=== PATIENT | female | born 1940 | race Caucasian/White ===

== ENCOUNTER 2023-02-16 12:41 | Emergency (ER) | payer MEDICARE, SELFPAY ==
--- NOTE | ~2023-02-16 | CT_ITS ---
EXAMINATION: CT ANGIOGRAM NECK WITH CONTRAST CT ANGIOGRAM BRAIN WITH CONTRAST CLINICAL INFORMATION: Right-sided weakness. COMPARISON: Head CT performed just prior. TECHNIQUE: Test bolus sequences followed by intravenous administration 100 mL of Omnipaque 350. Helical imaging was performed in the axial plane from the thoracic inlet to the skull vertex. Delayed postcontrast imaging of the head was also performed. The data was processed at the hyperbaric technologist workstation for generation of MIP sequences. Angled MIPs and volume rendered reformatted images were also generated at an offline 3D workstation. Stenoses are assessed in accordance with NASCET criteria unless otherwise indicated. This CT examination was performed using dose optimization techniques as appropriate, variously including the following: *Automated exposure control *Adjustment of mA and/or kV according to patient size (this includes techniques or standardized protocols for targeted exams where dose is matched to indication/reason for exam; i.e. extremities or head) *Use of iterative reconstruction technique DLP: 1359 mGy-cm FINDINGS: Head CT: Multiple peripherally enhancing intracranial metastases are seen, largest in the left frontal lobe measuring 2.0 cm with surrounding vasogenic edema. Additional smaller lesions are noted in the right frontal lobe, right insula, and right temporal lobe. There is no midline shift or herniation. There is no hemorrhage. No territorial infarction is seen. There is brain parenchymal volume loss. The dural venous sinuses are normally opacified. Neck CTA: Aortic arch and great vessel origins are patent. Common carotid arteries are patent. The left internal carotid artery appears occluded at its origin without reconstitution in the neck. Right internal carotid artery is patent. Atheromatous changes seen at both carotid bifurcations. Both vertebral arteries are patent. Head CTA: The intracranial left ICA reconstitutes at the siphon. The ACAs and MCAs are patent. The posterior circulation arteries are patent. No aneurysm is seen. Non-vascular findings: There is a large mass involving the right upper lung with significant infiltration of the mediastinum resulting in pulmonary arterial encasement. Abnormal mediastinal lymph nodes are seen. There is no abnormal presumably metastatic lymph node in the left neck at level 2A measuring 8 mm there is a multinodular thyroid gland exophytic nodule extending into the prevascular space. No definite destructive changes are seen in the bones. There is advanced dental disease. CT/CT angio head neck stroke IMPRESSION: CT HEAD: Multiple intracranial metastases largest in the left frontal lobe with surrounding vasogenic edema. No midline shift or herniation. No hemorrhage or territorial infarction. CTA NECK: Left internal carotid artery is occluded at its origin without reconstitution in the neck. Major neck arteries are otherwise patent. CTA HEAD: Left ICA reconstitutes intracranially. No large vessel occlusion or significant stenosis. Additional findings: Large mass in the right upper lung with infiltration of the mediastinum and pulmonary arterial encasement. Suspected left neck metastatic adenopathy in addition to mediastinal adenopathy. This critical result was discussed with Dr. Bonner on 02/16/2023 1:22 PM, and it was ascertained that the content and urgency of the report was understood at the time of direct communication.
--- NOTE | ~2023-02-16 | CT_ITS ---
EXAMINATION: CT HEAD WITHOUT CONTRAST (STROKE PROTOCOL) CLINICAL INFORMATION: Stroke protocol. Right-sided weakness COMPARISON: Previous CTA of the brain done the same day TECHNIQUE: Contiguous axial imaging was performed from the skull base to vertex without intravenous administration of contrast. This CT examination was performed using dose optimization techniques as appropriate, variously including the following: *Automated exposure control *Adjustment of mA and/or kV according to patient size (this includes techniques or standardized protocols for targeted exams where dose is matched to indication/reason for exam; i.e. extremities or head) *Use of iterative reconstruction technique DLP: 570 mGy-cm FINDINGS: There is no evidence of an extra-axial collection. There is no evidence of intra or extra-axial hemorrhage. The ventricles and extra-axial CSF spaces are appropriate. There is a large area of low attenuation seen in the left posterior frontal and left parietal lobes with vasogenic edema pattern. There is question of a central cystic lesion in the left posterior parietal lobe. This measures 1.8 x 2.1 cm and has a thick wall axial image 42 series 2. There is a second area of low attenuation with vasogenic edema measuring 1 x 1.3 cm in the right posterior frontal/anterior parietal lobe axial image 30 series 2. There is a third area small area of low attenuation in the left thalamus measuring 6 x 9 mm. This area is questionable for an lacunar infarct. No appreciable mass effect is seen. Review at bone windows is normal. CT/CT head for stroke IMPRESSION:: Large low-attenuation vasogenic edema in the left posterior frontal and entire parietal lobe and question central left parietal cystic lesion measuring 1.8 x 2 cm. Smaller area of vasogenic edema in the right frontal parietal region. Appearance is concerning for metastatic disease. 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 Findings could be further evaluated with brain MRI if clinically indicated. This critical result was discussed with Dr. Bonner at 1307 hours on 02/16/2023. It was ascertained that the content and urgency of the report was understood at the time of direct communication.
--- NOTE | 2023-02-16 12:42 | ED.NEUROSD ---
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 Per EMS, the patient was taking her morning medications when she suddenly felt her right arm and right leg become weak, which is not normal for her. She immediately called her son into the room, whom she lives with, and he then called EMS. Per EMS, patient's symptoms began improving en route. In ED, patient reports continued RUE weakness, RLE weakness has improved. No slurred speech. Related Data Previous Rx's Medication Instructions Recorded dexamethasone 6 mg tablet 12 mg PO BID 10 days #20 tabs 02/16/23 Allergies Allergy/AdvReac Type Severity Reaction Status Date / Time meperidine [From Demerol] Allergy Unknown Unknown Verified 02/16/23 13:10 Review of Systems Review of Systems: Yes all other systems are reviewed and are negative Neurologic: Denies Sensory deficit (Neuro) [facility] Social History Social History Advance Directives: Yes Advance Directives Information Provided: Yes Advance Directives on File: No Physical Exam Vital Signs: Vital Signs: Last Vital Signs Temp 98.7 F 02/16/23 13:11 Pulse 75 02/16/23 14:29 Resp 12 02/16/23 14:29 BP 158/66 H 02/16/23 14:29 Pulse Ox 94 02/16/23 14:29 O2 Del Method Room Air 02/16/23 14:29 BMI result Body Mass Index 22.3 Const: Other: frail, elderly General: alert and awake Nutritional Appearance: thin Orientation/consciousness: oriented to person and patient oriented x3 Limitations: no limitations HEENT: Head: Yes normal to inspection Ears: external ears normal General nose exam: Normal external nose present Mouth: Normal oral and palatal mucosa present and oropharynx normal Throat: Yes posterior oropharynx normal Eyes: General: appearance normal, both eyes and all related structures Neck: Other: supple Neck: Yes normal visual inspection Chest: Chest palpation & inspection: normal inspection of the chest Resp: Auscultation: clear to auscultation bilaterally Cardio: Jugular venous distension: no JVD Rate: regular rate Rhythm: regular rhythm Heart sounds: S1 normal heart sound present and S2 normal heart sound present GI: Inspection: Yes normal to inspection Palpation (GI): Soft to palpation, nontender and No hepatosplenomegaly present Auscultation: normal bowel sounds : General: Yes no CVA tenderness Back/Spine/Pelvis: Back: no CVA tenderness Skin: General skin exam: no rashes or lesions noted Neuro: Other: + right arm weakness General: oriented to person and patient oriented x3 Cranial nerves: Yes CN's II-XII intact bilaterally Sensory Exam: No Sensory deficit (Neuro) Extrem: General: Yes normal to inspection Psych: Appearance: grossly normal Course Reevaluation(s) Reevaluation #1: 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 pt does not want acute intervention or transfer for radiation to the brain due to mets. she would like to go home. she will take steroids. Time: 15:22 Medications Administered Discontinued Medications Generic Name Dose Route Start Last Admin Trade Name Freq PRN Reason Stop Dose Admin Iohexol 100 ml 02/16/23 13:20 02/16/23 13:21 Iohexol 350 Mg/Ml 100 Ml Infus..Btl IV 02/16/23 13:21 70 ml ONCE ONE Administration Medical Decision Making Differential Diagnosis Differential Diagnoses: The differential diagnosis associated with the presentation includes (CVA, brain mass, metastatic cancer were all considered) Admission/Observation Consideration of admission/observation: Escalation of care including admission/observation considered (82 yo with new onset r sided weakness was considered for admission upon arrival) Consult Healthcare Provider Management of the patient 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 (Elevated WBC count noted) 02/16/23 13:32 02/16/23 13:32 Labs: Lab Results 02/16/23 02/16/23 02/16/23 Range/Units 12:45 12:46 13:32 WBC 14.8 H (4.8-10.8) X10*3/uL RBC 4.18 L (4.20-5.50) X10*6/uL Hgb 12.7 (12.0-16.0) g/dl Hct 39.4 (37.0-47.0) % MCV 94.3 (80.0-98.0) fL MCH 30.4 (27.0-33.0) pg MCHC 32.2 (31.0-35.0) g/dl RDW 14.5 (11.0-16.0) % Plt Count 406 H (160-400) X10*3/uL MPV 11.0 (9.4-12.3) fL Immature Gran % (Auto) 0.4 (0.0-0.4) % Neut % (Auto) 78.9 H (45-73) % Lymph % (Auto) 8.7 L (20-40) % Coles % (Auto) 9.3 (2-11) % Eos % (Auto) 2.0 (0-4) % Baso % (Auto) 0.7 (0-2) % Lymph # (Auto) 1.3 (1.2-4.9) X10*3/uL Coles # (Auto) 1.4 H (0.1-1.2) X10*3/uL Eos # (Auto) 0.3 (0.0-0.4) X10*3/uL Baso # (Auto) 0.1 (0.0-0.2) X10*3/uL Abs Immat Gran (auto) 0.06 H (0.00-0.03) X10*3/uL Absolute Neuts (auto) 11.7 H (2.0-8.3) x10*3/uL Absolute Nucleated RBC 0.000 (0.0-0.012) X10*3/uL Nucleated RBC % (auto) 0.0 (0.0-0.2) /100WBC PT (10.0-13.1) SEC Whole Blood PT 12.3 (11.1-13.5) sec INR (0.9-1.1) Whole Blood INR 1.0 (0.9-1.1) APTT (26.0-36.4) SEC Sodium (135-145) mmol/L Potassium (3.3-5.1) mmol/L Chloride (96-108) mmol/L Carbon Dioxide (22-29) mmol/L Anion Gap (12-20) BUN (9-16) mg/dL Creatinine (0.5-1.4) mg/dL Estim Creat Clear Calc Estimated GFR POC Glucose 106 (60-115) mg/dL Random Glucose (60-115) mg/dL Calcium (8.4-10.2) mg/dL Troponin I High Sens (<3.5-17.0) ng/L 02/16/23 02/16/23 02/16/23 Range/Units 13:32 13:32 13:32 WBC (4.8-10.8) X10*3/uL RBC (4.20-5.50) X10*6/uL Hgb (12.0-16.0) g/dl Hct (37.0-47.0) % MCV (80.0-98.0) fL MCH (27.0-33.0) pg MCHC (31.0-35.0) g/dl RDW (11.0-16.0) % Plt Count (160-400) X10*3/uL MPV (9.4-12.3) fL Immature Gran % (Auto) (0.0-0.4) % Neut % (Auto) (45-73) % Lymph % (Auto) (20-40) % Coles % (Auto) (2-11) % Eos % (Auto) (0-4) % Baso % (Auto) (0-2) % Lymph # (Auto) (1.2-4.9) X10*3/uL Coles # (Auto) (0.1-1.2) X10*3/uL Eos # (Auto) (0.0-0.4) X10*3/uL Baso # (Auto) (0.0-0.2) X10*3/uL Abs Immat Gran (auto) (0.00-0.03) X10*3/uL Absolute Neuts (auto) (2.0-8.3) x10*3/uL Absolute Nucleated RBC (0.0-0.012) X10*3/uL Nucleated RBC % (auto) (0.0-0.2) /100WBC PT 11.8 (10.0-13.1) SEC Whole Blood PT (11.1-13.5) sec INR 1.0 (0.9-1.1) Whole Blood INR (0.9-1.1) APTT 32.5 (26.0-36.4) SEC Sodium 138 (135-145) mmol/L Potassium 4.1 (3.3-5.1) mmol/L Chloride 106 (96-108) mmol/L Carbon Dioxide 23 (22-29) mmol/L Anion Gap 13 (12-20) BUN 11 (9-16) mg/dL Creatinine 0.58 (0.5-1.4) mg/dL Estim Creat Clear Calc 60.8 Estimated GFR > 60 POC Glucose (60-115) mg/dL Random Glucose 105 (60-115) mg/dL Calcium 9.6 (8.4-10.2) mg/dL Troponin I High Sens < 2.7 (<3.5-17.0) ng/L Independent Interpretation I performed an independent interpretation of an: EKG (sinus 80 bpm, PVC, no st or t wave changes) and CT Scan (Head: edema to left parietal vs stroke) Radiology Impression Discussion of test interpretation with radiology: I discussed test interpretation with the radiologist (both head ct and iv cta were consulted w radiologist) Independent Historian Clinical information obtained from an independent historian. History obtained from or confirmed by: Other (son) Chronic Conditions Patient?s care impacted by: Cancer (metastatic lung cancer) NIH Stroke Scale Internal: Initial- Upon Arrival Time: 12:49 Level of Consciousness: Alert Level of Consciousness Questions: Answers both questions correctly Level of Consciousness Commands: Performs both tasks correctly Best Gaze: Normal Visual: No visual loss Facial Palsy: Normal Motor Arm (Right): Drift Motor Arm (Left): No drift Motor Leg (Right): No drift Motor Leg (Left): No drift Limb Ataxia: Absent Sensory: Normal Best Language: No aphasia Dysarthia: Normal Extinction and Inattention: No abnormality Score: 1 Discharge Plan Discharge Clinical Impression: Lung cancer, Metastatic cancer Patient Disposition: Home, Self-Care Instructions: Lung Cancer (DC) Prescriptions: New dexamethasone 6 mg tablet 12 mg PO BID 10 Days Qty: 20 0RF Referrals: Nicolas Asif MD [Primary Care Provider] - 5 days Isela Centeno MD [Physician] - 5 days
--- NOTE | 2023-02-16 12:45 | ECG_ITS ---
Test Reason : STROKE Blood Pressure : / mmHG Vent. Rate : 083 BPM Atrial Rate : 083 BPM P-R Int : 118 ms QRS Dur : 090 ms QT Int : 352 ms P-R-T Axes : 080 062 049 degrees QTc Int : 413 ms Sinus rhythm with occasional Premature ventricular complexes Possible Left atrial enlargement Borderline ECG No previous ECGs available Referred By: Delfino Bonner Electronically Signed By:Jesús Brand
[2023-02-16 12:52] LABS: Glucose, Whole Blood 106 mg/dL (60-115)
[2023-02-16 13:05] VITALS: BP 192/98; PULSE 87; O2SAT 96
[2023-02-16 13:11] VITALS: BP 188/65; PULSE 85; RESP 20; TEMP 37.1; O2SAT 97; BMI 22.3
[2023-02-16] MEDS: iohexoL 350 MG/ML 100 ML INFUS..BTL IV (13:21)
[2023-02-16 13:36] LABS: MANUAL DIFF FLAG NO
[2023-02-16 13:38] LABS: Basophils Absolute Auto 0.1 X10*3/uL (0.0-0.2); Basophils Percent Auto 0.7 % (0-2); Eosinophils Absolute Auto 0.3 X10*3/uL (0.0-0.4); Hematocrit 39.4 % (37.0-47.0); Hemoglobin 12.7 g/dl (12.0-16.0); Imm Gran Abs Auto 0.06 X10*3/uL (0.00-0.03); Imm Gran Pct Auto 0.4 % (0.0-0.4); Lymphocytes Absolute Auto 1.3 X10*3/uL (1.2-4.9); Lymphocytes Percent Auto 8.7 % (20-40); Mean Corpuscular HGB Conc 32.2 g/dl (31.0-35.0); Mean Corpuscular Hemoglobin 30.4 pg (27.0-33.0); Mean Corpuscular Volume 94.3 fL (80.0-98.0); Monocytes Absolute Auto 1.4 X10*3/uL (0.1-1.2); Monocytes Percent Auto 9.3 % (2-11); Neutrophils Absolute Auto 11.7 x10*3/uL (2.0-8.3); Neutrophils Percent Auto 78.9 % (45-73); Platelet Count 406 X10*3/uL (160-400); Red Blood Count 4.18 X10*6/uL (4.20-5.50); Red Cell Distribution Width 14.5 % (11.0-16.0); White Blood Count 14.8 X10*3/uL (4.8-10.8)
[2023-02-16 13:44] LABS: Prothrombin Time 11.8 SEC (10.0-13.1)
[2023-02-16 13:46] LABS: Partial Thromboplastin Time 32.5 SEC (26.0-36.4)
[2023-02-16 13:47] LABS: Stroke Lab Use COMPLETE
[2023-02-16 13:52] LABS: Anion Gap 13 (12-20); Blood Urea Nitrogen 11 mg/dL (9-16); Calcium 9.6 mg/dL (8.4-10.2); Carbon Dioxide 23 mmol/L (22-29); Chloride 106 mmol/L (96-108); Creatinine Clr Calc Pharmacy 60.8; Estimated Glomerular Filt Rate > 60; Glucose Random 105 mg/dL (60-115); Potassium 4.1 mmol/L (3.3-5.1); Sodium 138 mmol/L (135-145)
[2023-02-16 14:01] LABS: Troponin-I High Sensitivity < 2.7 ng/L (<3.5-17.0)
[2023-02-16 14:03] LABS: Prothrombin Time Whole Bld POC 12.3 sec (11.1-13.5)
[2023-02-16 14:29] VITALS: BP 158/66; PULSE 75; RESP 12; O2SAT 94
--- NOTE | 2023-02-16 14:50 | PC.NURSE ---
pt a&ox3, hypertensive, other vss, pt reports sudden onset right sided weakness with slurred speech, LKW 1200, on ED arrival pt neuro intact, equal strength in upper and lower extremities with right arm drift. stroke protocol initiated on arrival. 20G IV in left forearm placed by EMS, labs drawn. pt pending ED provider. no new orders at this time.
--- NOTE | 2023-02-16 15:19 | PC.NURSE ---
assumed care of this pt at 1500. pt a&o, resting quietly on stretcher in no apparent distress with family member at bedside. denies pain. rr even/unlabored. wctm
[2023-02-16 15:45] VITALS: BP 154/65; PULSE 75; RESP 19; TEMP 36.9; O2SAT 95
--- NOTE | 2023-03-02 14:24 | MHC.HEMONCMA ---
Tried home number and son number again and LM on VM for them to call us back for new patient consult we received.
== END 2023-02-16 15:53 | disposition home or self-care (01) ==
PROVIDERS: Emergency Provider Emergency Medicine; PCP Internal Medicine
DX: M62.81 Muscle weakness (generalized) (principal); R47.81 Slurred speech; R20.2 Paresthesia of skin; C34.90 Malignant neoplasm of unspecified part of unspecified bronchus or lung; R29.701 NIHSS score 1; R94.31 Abnormal electrocardiogram [ECG] [EKG]; Z79.899 Other long term (current) drug therapy
CPT/HCPCS: 36415; 70450; 70496; 70498; 80048; 82947; 84484; 85025; 85610; 85730; 93005; 99284; Q9967

== ENCOUNTER → 2023-03-08 09:50 | Outpatient (BNV) | payer MEDICARE, SELFPAY | PROVIDERS: PCP Internal Medicine; Visit Provider Internal Medicine | DX: C34.82 Malignant neoplasm of overlapping sites of left bronchus and lung (principal); C79.02 Secondary malignant neoplasm of left kidney and renal pelvis; C79.51 Secondary malignant neoplasm of bone | CPT/HCPCS: 99204; 99214 ==

== ENCOUNTER 2023-04-08 15:37 | Outpatient (REF) | payer MEDICARE, SELFPAY ==
--- NOTE | ~2023-04-08 | US_ITS ---
EXAMINATION: US VENOUS ULTRASOUND WITH DOPPLER LOWER EXTREMITY, BILATERAL CLINICAL INFORMATION: Bilateral lower extremity edema COMPARISON: None available. TECHNIQUE: Ultrasound of the deep veins is performed from the hip to the calf with compression sonography and color and pulse Doppler assessment. Spectral analysis with color-flow imaging is performed. FINDINGS: RIGHT: There is normal venous compression and respiratory variation and augmented flow. The visualized common femoral vein, superficial femoral vein, profunda femoral vein, and popliteal vein are patent and compressible with normal phasic responses to physiologic maneuvers. The veins of the calf are not utilized secondary to edema.. There is no significant popliteal fossa cyst. Soft tissue edema is present. LEFT: There is normal venous compression and respiratory variation and augmented flow. The visualized common femoral vein, superficial femoral vein, profunda femoral vein, and popliteal vein are patent and compressible with normal, phasic responses to physiologic maneuvers. The veins of the calf are not well visualized secondary to edema. There is no significant popliteal fossa cyst. Subcutaneous and soft tissue edema is present. If the patient's symptoms persist, followup ultrasound in 5 days 7 days might be of value to exclude proximal propagation from a non-visualized calf vein. US/US venous duplex LE BI IMPRESSION: No evidence of deep vein thrombosis in the left or right femoropopliteal system. The calf veins are not visualized bilaterally secondary to soft tissue edema.
== END 2023-04-08 15:38 | disposition home or self-care (01) ==
LOC: HO.US 15:37
PROVIDERS: PCP Internal Medicine; Visit Provider Internal Medicine Medical Oncology
DX: R60.0 Localized edema (principal)
CPT/HCPCS: 93970

== ENCOUNTER 2023-04-13 11:14 | Outpatient (REF) | payer MEDICARE, SELFPAY ==
--- NOTE | ~2023-04-13 | PE_ITS ---
EXAMINATION: Fluorine-18 FDG PET/CT Scan CLINICAL INDICATION: Subsequent treatment management. Malignant neoplasm of bilateral lung cancer. PROCEDURE: 65 minutes following the intravenous administration of 16.2 mCi of fluorine 18 FDG, images from the base of the skull to the mid thighs were obtained using a combined PET/CT scanner with CT scan based attenuation correction. No intravenous contrast was administered. Transverse, coronal, sagittal, and volume reconstruction projections were obtained. The patient's blood glucose as determined by a finger stick, was 114 mg/dl immediately prior to injection. The radiotracer was injected intravenously through the left antecubital superficial vein, without any complications. Total CT exam dose-length product 548.23 mGy-cm * These CT images were obtained using dose optimization techniques as appropriate, variously including the following: Automated exposure control * Adjustment of mA and/or kV according to patient size (this includes techniques or standardized protocols for targeted exams where dose is matched to indication/reason for exam; i.e. extremities or head) * Use of iterative reconstruction technique COMPARISON: The patient apparently has had prior studies done at an outside facility. No prior images are available at the moment for comparison. The current study was read without the benefit of direct visual comparison with prior studies. Subtle findings can only be apparent when comparison is made with prior studies. If prior studies become available, following comparison, an addendum will be dictated. FINDINGS: NECK AND VISUALIZED HEAD: The patient is known to have multiple intracranial metastatic disease. Please refer to the outside MRI of the brain report for further full details. On the current study, asymmetric increased radiotracer activity is present at the left parietal convexity region. There are no FDG avid, pathologically enlarged cervical lymphadenopathy present. Note is made of enlarged thyroid gland, asymmetrically extending into the left-sided anterosuperior mediastinum without any FDG avidity. THORAX: Solitary irregularly large intensely FDG avid mass is present at partially aerated central paramediastinal aspect of the right upper lobe of the lung, measures approximately 6.5 x 4.0 cm with SUV max of 13.0 (101/267). Additional FDG avidity is noted within the groundglass opacity seen at superior segment of right lower lobe of the lung. The right middle lobe appear to be completely collapsed and shows intense FDG avidity with SUV max of 7.5 (111/267). Patchy airspace disease associated with groundglass opacity and FDG avidity is noted within the central infrahilar part of the left lower lobe of the lung, may represent obstructive pneumonia. Solid intense FDG avid presumed right paratracheal and subcarinal lymphadenopathy is noted. The right paratracheal lymph node measures approximately 2.7 cm at its maximum short axis dimension with SUV max of 8.0 (99/267). The subcarinal lymph node measures 3.1 cm at its maximum short axis dimension with SUV max of 8.5 (108/267). Nonspecific mild FDG avidity is noted along the left perihilar lung field extending superiorly along the left anterolateral and medial mediastinal region associated with patchy groundglass airspace disease, most consistent with infiltrate/pneumonia, atelectasis or combination thereof and less likely to be malignancy. No evidence of any chest wall invasion. Trace amount of non-FDG avid right-sided pleural effusion is noted. There is no evidence of any pericardial effusion seen. Left-sided Port-A-Cath is present, with its tip seen at the cavoatrial junction. ABDOMEN AND PELVIS: No FDG avid focal disease within the liver or spleen to suspect metastasis. Circumscribed hypodense left adrenal nodule with mean Hounsfield value of -0.5 (195/349) is without any FDG avidity, consistent with lipid rich adrenal adenoma. The right adrenal gland morphologically appear unremarkable. The gallbladder appear collapsed, shows multiple calcified gallstones without any FDG avidity. The biliary tree, the pancreas appear unremarkable. The left kidney is remarkable for presence of a partially calcified relatively well-circumscribed minimally FDG avid (SUV max of 1.8-167/267) 3.6 x 3.7 cm mass with mean Hounsfield value of 32.7 (222/349). Follow-up multiphasic pre and postcontrast MRI or CT scan of the kidneys as appropriate is recommended for further full detail evaluation. Differential includes renal cell carcinoma as well as oncocytoma and less likely to be metastatic disease or lymphoma. The right kidney appears unremarkable. The bowel loops are decompressed. Colonic diverticulosis. The urinary bladder is unremarkable. There are no FDG avid, pathologically enlarged retroperitoneal, mesenteric, pelvic and/or groin lymphadenopathy. MUSCULOSKELETAL: Moderate compression fracture of L3 vertebral body without any superimposed FDG avidity, of indeterminate etiology. Marked diffuse osteopenia is noted involving all the visualized bones. No suspicious focal osseous FDG avid disease. VASCULAR: Calcific atherosclerotic disease of the aorta including coronary artery calcifications. No evidence of aneurysm. SUV max OF MEDIASTINAL BLOOD POOL: 2.2 SUV max OF LIVER: 2.9 THE SITE(S) OF MOST INTENSE FDG AVIDITY AND SUV MAX: The presumed primary site of malignancy involving posterior superior aspect of the right upper lobe of the lung in the form of 6.5 x 4.0 cm solid intense FDG avid mass with SUV max of 13.0. PET/PET CT fusion skull to thigh IMPRESSION: 1. Abnormal study showing features highly suspicious for right upper lobe lung malignancy with extension of disease into the adjacent mediastinum producing partial collapse consolidation of right upper lobe and complete collapse consolidation of right middle lobe and ipsilateral intense FDG avid mediastinal lymphadenopathy at the right paratracheal and subcarinal region. 2. Mild FDG avid left perihilar airspace disease extending into the left upper lobe, may represent infectious, inflammatory process including aspiration and less likely to be malignancy. 3. Trace amount of right-sided pleural effusion without any FDG avidity. 4. No evidence of any supraclavicular or infradiaphragmatic lymphadenopathy or FDG avid suspicious disease to suspect metastasis. Please note that patient however has multiple intracranial metastases which were better visualized on prior outside MRI of the head. Please refer to the MRI of the head report for further full details. 5. Note is also made of a 3.6 x 3.7 cm mild FDG avid partially exophytic partially calcific solid left renal mass, not optimally characterized on this current study. Differential include renal cell carcinoma as well as oncocytoma and less likely to be lymphoma or metastatic disease. Image guided biopsy for definitive diagnosis and/or follow-up imaging with CT scan or MRI with and without intravenous contrast as appropriate may be considered for further definitive tissue diagnosis/clarification. 6. No definite evidence of osseous metastatic disease. 7. Incidental note is made of a left adrenal lipid rich adenoma. The patient apparently has had prior studies done at an outside facility. Prior images are not available at the moment for comparison. The current study was read without the benefit of direct visual comparison with prior studies. Subtle findings can only be apparent when comparison is made with prior studies. If prior studies become available, following comparison, an addendum will be dictated.
== END 2023-04-13 11:15 | disposition home or self-care (01) ==
LOC: HO.PET 11:14
PROVIDERS: PCP Internal Medicine; Visit Provider Internal Medicine
DX: Z13.89 Encounter for screening for other disorder (principal)

== ENCOUNTER 2023-04-15 05:39 | Inpatient (IN) | payer MEDICARE, SELFPAY ==
[2023-04-15] VITALS (12 sets, daily range): BP systolic 137–185; BP diastolic 47–91; PULSE 84–175; RESP 15–30; TEMP 36–37.1; O2SAT 90–99; BMI 24.2; BMI 22.6
--- NOTE | 2023-04-15 | ECG_ITS ---
Test Reason : High heart rate Blood Pressure : / mmHG Vent. Rate : 109 BPM Atrial Rate : 109 BPM P-R Int : 116 ms QRS Dur : 092 ms QT Int : 312 ms P-R-T Axes : 059 031 030 degrees QTc Int : 420 ms Sinus tachycardia Otherwise normal ECG When compared with ECG of 15-APR-2023 23:02, Premature supraventricular complexes are no longer Present Referred By: Hermelindo Gauthier Electronically Signed By:EARL MEDINA
--- NOTE | 2023-04-15 | ECG_ITS ---
Test Reason : High heart rate Blood Pressure : / mmHG Vent. Rate : 103 BPM Atrial Rate : 103 BPM P-R Int : 118 ms QRS Dur : 092 ms QT Int : 320 ms P-R-T Axes : 064 034 036 degrees QTc Int : 419 ms Sinus tachycardia with Premature supraventricular complexes Otherwise normal ECG When compared with ECG of 15-APR-2023 05:59, No significant change was found Referred By: Hermelindo Gauthier Electronically Signed By:EARL MEDINA
--- NOTE | ~2023-04-15 | XR_ITS ---
EXAMINATION: XR CHEST CLINICAL INFORMATION: Shortness of breath COMPARISON: 04/15/2023 TECHNIQUE: Frontal view of the chest was obtained. FINDINGS: Left subclavian port catheter tip lies in the region of the distal SVC. Lung volumes are symmetric. Redemonstrated large right perihilar mass better delineated on recent CT. Mildly improved right basilar aeration. No new consolidation is seen. Component of bibasilar atelectasis is suspected. Coarsened appearance of the interstitium is redemonstrated. Possible trace pleural effusions. No evidence of pneumothorax. The cardiomediastinal silhouette is stable. No acute osseous findings are seen. XR/XR chest 1V IMPRESSION: Redemonstrated large right perihilar mass, better delineated on recent CT. Mildly improved right basilar aeration. No new consolidation.
--- NOTE | ~2023-04-15 | XR_ITS ---
EXAMINATION: XR CHEST CLINICAL INFORMATION: Dyspnea COMPARISON: [employer] Of [employer] imaging from PET/CT dated 04/13/2023 TECHNIQUE: Frontal view of the chest was obtained. FINDINGS: Significant abnormality in the right upper lung adjacent the mediastinum consistent with tumor. Similar to previous study. Developing left basilar opacity consistent with atelectasis or infiltrate. Catheter overlies the superior vena cava. There is no evidence for pneumothorax. No obvious failure. No large effusion. XR/XR chest 1V IMPRESSION: Right perihilar and upper lung opacity consistent with known tumor. Developing process the left at the left base consistent with atelectasis/infiltrate
--- NOTE | ~2023-04-15 | FL_ITS ---
EXAMINATION: XR BARIUM SWALLOW CLINICAL INFORMATION: Dysphagia COMPARISON: None available. TECHNIQUE: Modified barium esophagram with speech pathologist. FINDINGS: Patient swallowed multiple consistencies from thin liquid to barium coated cookie. There is no evidence of nasopharyngeal reflux or tracheal aspiration. No Zenker's diverticulum identified. No cricopharyngeal hypertrophy appreciated. There was pooling of material within the vallecula which cleared to a large extent with thin liquid. FLUOROSCOPY TIME: 4.2 minutes DOSE AREA PRODUCT: 1.432 Gy-cm2 (chapin-centimeter squared) FL/FL barium swallow modified IMPRESSION: Retention of material within the vallecula. No evidence of laryngeal penetration or tracheal aspiration. Please refer to speech pathology report for details.
--- NOTE | ~2023-04-15 | XR_ITS ---
EXAMINATION: XR CHEST CLINICAL INFORMATION: Shortness of breath. COMPARISON: Correlation made with CT performed on the same day. TECHNIQUE: Frontal view of the chest was obtained. FINDINGS: The lung volumes are low. The cardiomediastinal silhouette is stable. There is a large right perihilar opacity/mass similar to previous and seen on CT. There is a faint right lung base opacity and minimal increased markings at the left base. There are no significant pleural effusions. A Mediport is noted in a stable position. The bony structures are osteopenic. XR/XR chest 1V IMPRESSION: Right perihilar mass as seen on recent CT and on prior x-ray. Faint right lung base opacity possibly early infiltrate or atelectasis. Increased markings at the left base.
--- NOTE | ~2023-04-15 | CT_ITS ---
EXAMINATION: CT ANGIOGRAM OF THE CHEST WITH AND WITHOUT CONTRAST (CT PULMONARY ANGIOGRAM FOR PE) CLINICAL INFORMATION: Reason for Exam dyspnea COMPARISON: PET/CT exam 04/13/2023. TECHNIQUE: Prior to contrast administration, noncontrast localization images were obtained. Subsequently, multidetector volumetric imaging was performed from the thoracic inlet to below the diaphragms following the administration of 80 mL Omnipaque 350 intravenous contrast. No contrast reaction reported Sagittal, coronal, and MIP oblique sagittal reformatted images were obtained on the CT workstation, uploaded to PACS, and reviewed. This CT examination was performed using dose optimization techniques as appropriate, variously including the following: *Automated exposure control *Adjustment of mA and/or kV according to patient size (this includes techniques or standardized protocols for targeted exams where dose is matched to indication/reason for exam; i.e. extremities or head) *Use of iterative reconstruction technique Total exam dose-length product 334 mGy-cm FINDINGS: QUALITY OF STUDY/CONTRAST BOLUS: Satisfactory. PULMONARY ARTERIES: There is no intraluminal filling defect in the pulmonary arteries. THORACIC AORTA: No dissection or aneurysm. LUNG: Again noted is a large central mass in the right upper lobe extending medially to mediastinum and along the major fissure. End inferiorly. There are air bronchograms within the within this mass medially. Patchy opacity is seen in the superior segment of right lower lobe similar to previous study. PLEURA: Right pleural effusion has slightly increased. No calcified pleural plaque seen. Minimal pleural reaction seen on the left side. MEDIASTINUM: There are bilateral thyroid nodules of the left lobe enlarged extending inferiorly below the medial left clavicle. There are multiple subcarinal and precarinal lymph nodes similar previous study and/or direct extension of tumor in the right paramediastinum and middle mediastinum. The trachea is patent. The right bronchial stent in place. There is a left central port with its tip in the mid SVC. No evidence of septal bowing or right heart strain. CORONARY ARTERY CALCIFICATION: Mild coronary artery calcifications CHEST WALL/AXILLA: No abnormal size axillary lymph nodes seen. The chest wall is unremarkable. OSSEOUS STRUCTURES: There is a vertebral planum and T7 vertebra consistent fracture. There is superior endplate deformity L1 vertebra. UPPER ABDOMEN: The left adrenal lesion measuring 1.3 cm and -[address] Houn[address]. On recent CT there was a lipid rich adenoma noted. The liver, spleen, pancreas and right adrenal gland is unremarkable. Suspect several rim calcified gallstones. There is a heterogeneous enhancing exophytic mass left kidney mid to lower pole most likely malignant, partially visualized on this exam. It is not metabolically active on the present PET study. There is a right renal cyst. No reflux of contrast into the hepatic veins to suggest elevated right heart pressures. CT/CT angio chest PE protocol IMPRESSION: No evidence of PE. No evidence aortic dissection or aneurysm. No significant change in the large right upper lobe mass with likely direct extension to the right mediastinum. Abnormal metastatic subcarinal and precarinal lymphadenopathy. Left adrenal lipoma. Likely chronic T7 vertebral fracture. There is a new superior endplate deformity L1 vertebra likely acute. Heterogeneous left kidney mass. Recommend further evaluation with MRI. VTE: negative
--- NOTE | 2023-04-15 06:37 | ECG_ITS ---
Test Reason : dyspnea Blood Pressure : / mmHG Vent. Rate : 099 BPM Atrial Rate : 099 BPM P-R Int : 106 ms QRS Dur : 092 ms QT Int : 326 ms P-R-T Axes : 045 012 023 degrees QTc Int : 418 ms Sinus rhythm with short NM with Premature supraventricular complexes Otherwise normal ECG When compared with ECG of 16-FEB-2023 13:11, Premature ventricular complexes are no longer Present Premature supraventricular complexes are now Present Referred By: Katlyn King Electronically Signed By:EARL MEDINA
--- NOTE | 2023-04-15 06:47 | ED_ITS ---
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 She comes in with c/o feeling increased shortness of breath with wheezing and cough starting two days ago but much worse overnight. She notes she is not normally on oxygen but she still smokes. Did improve with neb treatment by EMS was 92% on RA. MD elicited complaint: shortness of breath and cough Pertinent past history: pneumonia and other (cancer) Onset (ago): day(s) (2) Context: other (had chemo on Wednesday) Timing: progressively worsening Severity: moderate Exacerbating factors: exertion and coughing Relieving factors: nothing Known history of: recurrent pneumonia Associated symptoms: cough, wheezing and sputum production Treatment prior to arrival: oxygen and bronchodilator Related Data Home Medications Medication Instructions Recorded Confirmed albuterol sulfate 2.5 mg/3 mL 2.5 mg inhalation Q6H PRN wheezing 03/08/23 03/22/23 (0.083 %) solution for nebulization dexamethasone 4 mg tablet 4 mg PO BID 03/08/23 03/22/23 folic acid 1 mg tablet 1 mg PO DAILY 03/08/23 03/22/23 metoprolol succinate 50 mg 50 mg PO DAILY 03/08/23 03/22/23 tablet,extended release 24 hr omeprazole 20 mg capsule,delayed 20 mg PO QAM 03/08/23 03/22/23 release guaifenesin 1,200 mg tablet, 1,200 mg PO BID 03/22/23 03/22/23 extended release 12 hr (Mucinex) Previous Rx's Medication Instructions Recorded furosemide 20 mg tablet (Lasix) 20 mg PO QAM #30 tabs 04/09/23 oxycodone 5 mg tablet 5 mg PO Q8H PRN Pain #30 tabs 04/09/23 dexamethasone 2 mg tablet 2 mg PO DAILY #30 tabs 04/12/23 Allergies Allergy/AdvReac Type Severity Reaction Status Date / Time meperidine [From Demerol] Allergy Unknown Unknown Verified 02/16/23 13:10 Review of Systems Review of Systems: Constitutional : No Fever, No Chills ENT/Mouth : No Hoarseness, No sore throat, No Rhinorrhea Cardiovascular : No Chest Pain, positive SOB, positive Dyspnea on Exertion, No Edema Respiratory : positive Cough, pos Sputum, positive Wheezing, Gastrointestinal : No Nausea, No Vomiting, No Diarrhea, No abdominal Pain Genitourinary : No Dysuria, No Hematuria Musculoskeletal : No joint pain, No Myalgias Skin : No rash Neuro : No Weakness, No Numbness, No Headache Psych : No anxiety, depression All other systems reviewed and are negative [facility] Past Medical History Attestation statement: The following information was validated with the patient. Medical History Basal cell carcinoma Port-A-Cath in place (~02/03/23) Surgical History History of tonsillectomy S/P pulmonary artery branches stent placement (~2022) [place] teeth extracted Family History Family History Sister Thyroid cancer Breast cancer Kidney stone Father Rectal cancer Social History Social History Patient Tobacco Use Status: Former Tobacco user Tobacco use type: Cigarette Advance Directives: No Advance Directives Information Provided: Yes service: No Current occupational status: retired Physical Exam Vital Signs: Vital Signs: Last Vital Signs Temp 97.8 F 04/15/23 08:49 Pulse 100 04/15/23 08:49 Resp 15 04/15/23 08:49 BP 137/47 L 04/15/23 08:49 Pulse Ox 98 04/15/23 08:49 O2 Del Method Room Air 04/15/23 08:49 Appearance: Alert. Oriented X3. No acute distress. Eyes: Pupils equal, round and reactive to light. ENT: Pharynx normal. Neck: Normal inspection. Neck supple. CVS: tachcyardic heart rate and rhythm. Pulses normal. Respiratory: No respiratory distress. Breath sounds coarse and diminished with diffuse wheezes present Abdomen: Soft and nontender. Skin: Skin warm and dry. pale skin color. Normal skin turgor. Extremities: 1+ pitting ankle lower extremity edema. No calf ttp Neuro: Oriented X 3. No motor deficit. No sensory deficit. Course Course Course Narrative: plan to admit for pneumonia - MRSA screen is pending did add on azithromycin Medications Administered Discontinued Medications Generic Name Dose Route Start Last Admin Trade Name Celso PRN Reason Stop Dose Admin Albuterol Sulfate 2.5 mg/ 0 mg 04/15/23 06:37 04/15/23 06:51 Albuterol/Ipratropium 3 ml INHALE 04/15/23 06:38 5 dose ONCE ONE Administration Cefepime HCl 2 gm/ Sodium 50 mls @ 100 mls/hr 04/15/23 07:10 04/15/23 08:38 Chloride IV 04/15/23 07:39 Infused ONCE ONE Infusion Sodium Chloride 500 mls @ 500 mls/hr 04/15/23 07:45 04/15/23 09:30 Ns IV 04/15/23 08:44 500 mls/hr .Q1H RAQUEL Administration Iohexol 65 ml 04/15/23 08:42 04/15/23 08:45 Iohexol 350 Mg/Ml 100 Ml Infus..Btl IV 04/15/23 08:43 65 ml ONCE ONE Administration Methylprednisolone Sodium Succinate 60 mg 04/15/23 06:51 04/15/23 07:03 Methylprednisolone Sod Succ 125 Mg/2 Ml Vial IVPUSH 04/15/23 06:52 60 mg ONCE ONE Administration Oxycodone HCl 5 mg 04/15/23 07:13 04/15/23 07:33 Oxycodone Hcl Immed Release 5 Mg Tablet PO 04/15/23 07:14 5 mg ONCE ONE Administration Medical Decision Making Medical Decision Making 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 She will get another treatment as it improved her symptoms a lot with EMS and will give 60mg steroids, start on cefepime given chemo use and symptoms given cough and sputum production. Likely admit. Differential Diagnosis Differential Diagnoses: The differential diagnosis associated with the presentation includes effusions, COPD, malignancy, VTE Admission/Observation Consideration of admission/observation: Escalation of care including admission/observation considered plan to admit for oxygen, antibiotics and CBC trend Consult Healthcare Provider Management of the patient was discussed with: Hospitalist and Objects Conservator (Dr. Jacobo rosales so WBC can be attributed to it.) agrees to admit Lab Data [facility] Lab Attestation statement: I reviewed the patient's lab results. 04/15/23 06:52 04/15/23 06:52 Labs: Lab Results 04/15/23 04/15/23 04/15/23 Range/Units 06:52 06:52 06:52 WBC 41.4 H* (4.8-10.8) X10*3/uL RBC 4.06 L (4.20-5.50) X10*6/uL Hgb 12.7 (12.0-16.0) g/dl Hct 38.7 (37.0-47.0) % MCV 95.3 (80.0-98.0) fL MCH 31.3 (27.0-33.0) pg MCHC 32.8 (31.0-35.0) g/dl RDW 17.7 H (11.0-16.0) % Plt Count 283 (160-400) X10*3/uL MPV 9.9 (9.4-12.3) fL Immature Gran % (Auto) Cancelled Neut % (Auto) Cancelled Lymph % (Auto) Cancelled [place] % (Auto) Cancelled Eos % (Auto) Cancelled Baso % (Auto) Cancelled Lymph # (Auto) Cancelled [place] # (Auto) Cancelled Eos # (Auto) Cancelled Baso # (Auto) Cancelled Abs Immat Gran (auto) Cancelled Absolute Neuts (auto) Cancelled Absolute Nucleated RBC 0.000 (0.0-0.012) X10*3/uL Nucleated RBC % (auto) 0.0 (0.0-0.2) /100WBC Neutrophils % (Manual) 93 H (45-73) % Band Neutrophils % 7 H (3-5) % Abs Neuts (Manual) 41.4 H (2.0-8.3) X10*3/uL Toxic Vacuolation PRESENT Platelet Estimate NORMAL (NORMAL) Plt Morphology Comment NORMAL RBC Morphology NOTED [place] Cells 1+ (0-2) /OIF D-Dimer High Sensitivty 1181 NG/ML VBG pH (7.32-7.43) VBG pCO2 mmHg VBG pO2 mmHg VBG HCO3 (22-26) mmol/L VBG O2 Saturation % VBG Base Excess mmol/L Sodium 137 (135-145) mmol/L Potassium 4.1 (3.3-5.1) mmol/L Chloride 99 (96-108) mmol/L Carbon Dioxide 29 (22-29) mmol/L Anion Gap 13 (12-20) BUN 32 H (9-16) mg/dL Creatinine 0.68 (0.5-1.4) mg/dL Estim Creat Clear Calc TNP Estimated GFR > 60 Random Glucose 81 (60-115) mg/dL Lactic Acid (0.5-2.0) mmol/L Calcium 9.6 (8.4-10.2) mg/dL Magnesium 1.7 (1.6-2.6) mg/dL Total Bilirubin 0.9 (0.0-1.0) mg/dL Direct Bilirubin 0.4 (0.0-0.5) mg/dL AST 32 H (5-31) U/L ALT 58 H (0-31) U/L Alkaline Phosphatase 181 H (39-117) U/L Troponin I High Sens (<3.5-17.0) ng/L B-Natriuretic Peptide (<100) pg/mL Total Protein 5.6 L (6.5-8.0) g/dL Albumin 3.0 L (3.5-5.0) g/dL Lipase 14 (8-78) U/L Respiratory Panel Velásquez Adenovirus (Rapid PCR) (Not Detect.) B.pert (TEM-PCR) (Not Detect.) B.parapertussis DNA PCR (Not Detect.) C. pneumoniae DNA (PCR) (Not Detect.) Coronavirus OC43 (PCR) (Not Detect.) Coronavirus HKU1 (PCR) (Not Detect.) Coronavirus 229E (PCR) (Not Detect.) Coronavirus NL63 (PCR) (Not Detect.) Human Metapneumovir PCR (Not Detect.) Influenza A (RT-PCR) (Not Detect.) Influenza B (RT-PCR) (Not Detect.) M. pneumoniae (PCR) (Not Detect.) Parainfluenza 1 (PCR) (Not Detect.) Parainfluenza 2 (PCR) (Not Detect.) Parainfluenza 3 (PCR) (Not Detect.) Parainfluenza 4 (PCR) (Not Detect.) RSV (PCR) (Not Detect.) Entero/Rhino (PCR) (Not Detect.) SARS-CoV-2 RNA (RT-PCR) (Not Detect.) 04/15/23 04/15/23 04/15/23 Range/Units 06:52 06:52 06:52 WBC (4.8-10.8) X10*3/uL RBC (4.20-5.50) X10*6/uL Hgb (12.0-16.0) g/dl Hct (37.0-47.0) % MCV (80.0-98.0) fL MCH (27.0-33.0) pg MCHC (31.0-35.0) g/dl RDW (11.0-16.0) % Plt Count (160-400) X10*3/uL MPV (9.4-12.3) fL Immature Gran % (Auto) Neut % (Auto) Lymph % (Auto) [place] % (Auto) Eos % (Auto) Baso % (Auto) Lymph # (Auto) [place] # (Auto) Eos # (Auto) Baso # (Auto) Abs Immat Gran (auto) Absolute Neuts (auto) Absolute Nucleated RBC (0.0-0.012) X10*3/uL Nucleated RBC % (auto) (0.0-0.2) /100WBC Neutrophils % (Manual) (45-73) % Band Neutrophils % (3-5) % Abs Neuts (Manual) (2.0-8.3) X10*3/uL Toxic Vacuolation Platelet Estimate (NORMAL) Plt Morphology Comment RBC Morphology [place] Cells /OIF D-Dimer High Sensitivty NG/ML VBG pH (7.32-7.43) VBG pCO2 mmHg VBG pO2 mmHg VBG HCO3 (22-26) mmol/L VBG O2 Saturation % VBG Base Excess mmol/L Sodium (135-145) mmol/L Potassium (3.3-5.1) mmol/L Chloride (96-108) mmol/L Carbon Dioxide (22-29) mmol/L Anion Gap (12-20) BUN (9-16) mg/dL Creatinine (0.5-1.4) mg/dL Estim Creat Clear Calc Estimated GFR Random Glucose (60-115) mg/dL Lactic Acid (0.5-2.0) mmol/L Calcium (8.4-10.2) mg/dL Magnesium (1.6-2.6) mg/dL Total Bilirubin (0.0-1.0) mg/dL Direct Bilirubin (0.0-0.5) mg/dL AST (5-31) U/L ALT (0-31) U/L Alkaline Phosphatase (39-117) U/L Troponin I High Sens 17.8 H D (<3.5-17.0) ng/L B-Natriuretic Peptide 78 (<100) pg/mL Total Protein (6.5-8.0) g/dL Albumin (3.5-5.0) g/dL Lipase (8-78) U/L Respiratory Panel Velásquez See Note Adenovirus (Rapid PCR) Not Detected (Not Detect.) B.pert (TEM-PCR) Not Detected (Not Detect.) B.parapertussis DNA PCR Not Detected (Not Detect.) C. pneumoniae DNA (PCR) Not Detected (Not Detect.) Coronavirus OC43 (PCR) Not Detected (Not Detect.) Coronavirus HKU1 (PCR) Not Detected (Not Detect.) Coronavirus 229E (PCR) Not Detected (Not Detect.) Coronavirus NL63 (PCR) Not Detected (Not Detect.) Human Metapneumovir PCR Not Detected (Not Detect.) Influenza A (RT-PCR) Not Detected (Not Detect.) Influenza B (RT-PCR) Not Detected (Not Detect.) M. pneumoniae (PCR) Not Detected (Not Detect.) Parainfluenza 1 (PCR) Not Detected (Not Detect.) Parainfluenza 2 (PCR) Not Detected (Not Detect.) Parainfluenza 3 (PCR) Not Detected (Not Detect.) Parainfluenza 4 (PCR) Not Detected (Not Detect.) RSV (PCR) Not Detected (Not Detect.) Entero/Rhino (PCR) Not Detected (Not Detect.) SARS-CoV-2 RNA (RT-PCR) Not Detected (Not Detect.) 08/24/23 08/24/23 Range/Units 06:53 07:00 WBC (4.8-10.8) X10*3/uL RBC (4.20-5.50) X10*6/uL Hgb (12.0-16.0) g/dl Hct (37.0-47.0) % MCV (80.0-98.0) fL MCH (27.0-33.0) pg MCHC (31.0-35.0) g/dl RDW (11.0-16.0) % Plt Count (160-400) X10*3/uL MPV (9.4-12.3) fL Immature Gran % (Auto) Neut % (Auto) Lymph % (Auto) [place] % (Auto) Eos % (Auto) Baso % (Auto) Lymph # (Auto) [place] # (Auto) Eos # (Auto) Baso # (Auto) Abs Immat Gran (auto) Absolute Neuts (auto) Absolute Nucleated RBC (0.0-0.012) X10*3/uL Nucleated RBC % (auto) (0.0-0.2) /100WBC Neutrophils % (Manual) (45-73) % Band Neutrophils % (3-5) % Abs Neuts (Manual) (2.0-8.3) X10*3/uL Toxic Vacuolation Platelet Estimate (NORMAL) Plt Morphology Comment RBC Morphology [place] Cells /OIF D-Dimer High Sensitivty NG/ML VBG pH 7.43 (7.32-7.43) VBG pCO2 48 mmHg VBG pO2 37 mmHg VBG HCO3 33 H (22-26) mmol/L VBG O2 Saturation 52.0 % VBG Base Excess 7.7 mmol/L Sodium (135-145) mmol/L Potassium (3.3-5.1) mmol/L Chloride (96-108) mmol/L Carbon Dioxide (22-29) mmol/L Anion Gap (12-20) BUN (9-16) mg/dL Creatinine (0.5-1.4) mg/dL Estim Creat Clear Calc Estimated GFR Random Glucose (60-115) mg/dL Lactic Acid 2.6 H* (0.5-2.0) mmol/L Calcium (8.4-10.2) mg/dL Magnesium (1.6-2.6) mg/dL Total Bilirubin (0.0-1.0) mg/dL Direct Bilirubin (0.0-0.5) mg/dL AST (5-31) U/L ALT (0-31) U/L Alkaline Phosphatase (39-117) U/L Troponin I High Sens (<3.5-17.0) ng/L B-Natriuretic Peptide (<100) pg/mL Total Protein (6.5-8.0) g/dL Albumin (3.5-5.0) g/dL Lipase (8-78) U/L Respiratory Panel Velásquez Adenovirus (Rapid PCR) (Not Detect.) B.pert (TEM-PCR) (Not Detect.) B.parapertussis DNA PCR (Not Detect.) C. pneumoniae DNA (PCR) (Not Detect.) Coronavirus OC43 (PCR) (Not Detect.) Coronavirus HKU1 (PCR) (Not Detect.) Coronavirus 229E (PCR) (Not Detect.) Coronavirus NL63 (PCR) (Not Detect.) Human Metapneumovir PCR (Not Detect.) Influenza A (RT-PCR) (Not Detect.) Influenza B (RT-PCR) (Not Detect.) M. pneumoniae (PCR) (Not Detect.) Parainfluenza 1 (PCR) (Not Detect.) Parainfluenza 2 (PCR) (Not Detect.) Parainfluenza 3 (PCR) (Not Detect.) Parainfluenza 4 (PCR) (Not Detect.) RSV (PCR) (Not Detect.) Entero/Rhino (PCR) (Not Detect.) SARS-CoV-2 RNA (RT-PCR) (Not Detect.) Independent Interpretation I performed an independent interpretation of an: EKG, Plain X-Ray (pneumonia) and CT Scan (no PE) Interpretation: Rate: 119 Rhythm: sinus tachycardia [place]: normal Normal P waves. Normal ANUPAMA. Normal QRS complex. ST T wave : no JAKE, nonspecific changes inf leads qTC: normal prior studies: no acute ischemia The study has been interpreted contemporaneously by me. . Radiology Impression Discussion of test interpretation with radiology: I have reviewed the radiologist's reading. External Record Review External record reviewed: Inpatient record and Office record Critical Care Time Critical Care Time Critical Care Time: Yes Total Critical Care Time: 31 Attestation: repeat neb, IV antibiotics, review of records. I attest to this time spent taking care of the patient Discharge Plan Discharge Clinical Impression: Acute exacerbation of chronic obstructive airways disease, Acidosis, lactic Pneumonia Qualifiers: Pneumonia type: due to unspecified organism Laterality: right Lung location: unspecified part of lung Qualified Code(s): J18.9 - Pneumonia, unspecified organism Leukocytosis Qualifiers: Leukocytosis type: bandemia Qualified Code(s): D72.825 - Bandemia Patient Disposition: Admitted As Inpatient
[2023-04-15] MEDS: Albuterol Sulfate 2.5 MG, Albuterol/Iprat 2.5/0.5MG 3 ML 3 ML INHALE (06:51)
[2023-04-15 07:03] LABS: Venous Blood Gas Refer to POC result
[2023-04-15] MEDS: methylPREDNISolone Sod Succ 125 MG/2 ML VIAL 60 MG IVPUSH (07:03)
[2023-04-15 07:05] LABS: VBG Base Excess 7.7 mmol/L; VBG HCO3 33 mmol/L (22-26); VBG pCO2 48 mmHg; VBG pH 7.43 (7.32-7.43); VBG pO2 37 mmHg
[2023-04-15 07:05] LABS: Hematocrit 38.7 % (37.0-47.0); Hemoglobin 12.7 g/dl (12.0-16.0); Mean Corpuscular HGB Conc 32.8 g/dl (31.0-35.0); Mean Corpuscular Hemoglobin 31.3 pg (27.0-33.0); Mean Corpuscular Volume 95.3 fL (80.0-98.0); Mean Platelet Volume 9.9 fL (9.4-12.3); Platelet Count 283 X10*3/uL (160-400); Red Blood Count 4.06 X10*6/uL (4.20-5.50); Red Cell Distribution Width 17.7 % (11.0-16.0)
[2023-04-15 07:10] LABS: D Dimer High Sensitivity 1181 NG/ML
[2023-04-15 07:11] LABS: White Blood Count 41.4 X10*3/uL (4.8-10.8)
[2023-04-15 07:18] LABS: Alanine Aminotransferase 58 U/L (0-31); Alkaline Phosphatase 181 U/L (39-117); Anion Gap 13 (12-20); Aspartate Amino Transferase 32 U/L (5-31); Bilirubin Direct 0.4 mg/dL (0.0-0.5); Bilirubin Total 0.9 mg/dL (0.0-1.0); Blood Urea Nitrogen 32 mg/dL (9-16); Calcium 9.6 mg/dL (8.4-10.2); Carbon Dioxide 29 mmol/L (22-29); Chloride 99 mmol/L (96-108); Estimated Glomerular Filt Rate > 60; Glucose Random 81 mg/dL (60-115); Lipase 14 U/L (8-78); Magnesium 1.7 mg/dL (1.6-2.6); Potassium 4.1 mmol/L (3.3-5.1); Sodium 137 mmol/L (135-145); Total Protein 5.6 g/dL (6.5-8.0)
[2023-04-15 07:24] LABS: B Type Natriuretic Peptide 78 pg/mL (<100)
[2023-04-15 07:25] LABS: Troponin-I High Sensitivity 17.8 ng/L (<3.5-17.0)
[2023-04-15 07:29] LABS: Band Neutrophils Percent 7 % (3-5); Neutrophils Absolute Manual 41.4 X10*3/uL (2.0-8.3); Neutrophils Percent Manual 93 % (45-73)
[2023-04-15] MEDS: cefEPime HCl 2 GM in 0.9 % Sodium Chloride 50 ML IV ×2 (07:33→15:19)
[2023-04-15] MEDS: oxyCODONE HCl Immed Release 5 MG TABLET PO ×2 (07:33→16:45)
[2023-04-15 07:35] LABS: Burr Cells 1+ (0-2) /OIF; RBC Morphology NOTED
[2023-04-15 07:36] LABS: Platelet Estimate NORMAL (NORMAL); Platelet Morphology Comment NORMAL; Toxic Vacuolation PRESENT
[2023-04-15 07:43] LABS: Lactic Acid 2.6 mmol/L (0.5-2.0)
[2023-04-15] MEDS: iohexoL 350 MG/ML 100 ML INFUS..BTL 65 ML IV (08:45)
[2023-04-15 08:59] LABS: Reflex Lactate? Lactic Acid Added
[2023-04-15] MEDS: 0.9 % Sodium Chloride 500 ML IV (09:30)
[2023-04-15 09:46] LABS: Adenovirus PCR Not Detected (Not Detect.); Bordetella parapertussis PCR Not Detected (Not Detect.); Bordetella pertussis PCR Not Detected (Not Detect.); Chlamydia pneumoniae PCR Not Detected (Not Detect.); Coronavirus 229E PCR Not Detected (Not Detect.); Coronavirus HKU1 PCR Not Detected (Not Detect.); Coronavirus NL63 PCR Not Detected (Not Detect.); Coronavirus OC43 PCR Not Detected (Not Detect.); Human metapneumovirus PCR Not Detected (Not Detect.); Influenza A PCR Not Detected (Not Detect.); Influenza B PCR Not Detected (Not Detect.); Mycoplasma pneumoniae PCR Not Detected (Not Detect.); Parainfluenza 1 PCR Not Detected (Not Detect.); Parainfluenza 2 PCR Not Detected (Not Detect.); Parainfluenza 3 PCR Not Detected (Not Detect.); Parainfluenza 4 PCR Not Detected (Not Detect.); RSV PCR Not Detected (Not Detect.); Rhino/Enterovirus PCR Not Detected (Not Detect.); SARS-CoV-2 PCR Not Detected (Not Detect.)
--- NOTE | 2023-04-15 10:00 | PC.NURSE ---
pt's port accessed, 20g, lactic and trop drawn. pt c/o back pain (chronic) and pain from a sore on her coccyx. 1 assist onto bedside commode, voided, applied barrier cream to red area on coccyx and thigh crease under L buttocks, no open wound. pt resting comfortably in hospital bed. pt aware of plan for admission.
[2023-04-15 10:11] LABS: ~Lactic Acid-LAB USE ONLY 1.1 mmol/L (0.5-2.0)
[2023-04-15] MEDS: Azithromycin 500 MG in 0.9 % Sodium Chloride 250 ML 125 MG IV (10:11)
[2023-04-15 10:22] LABS: Troponin-I High Sensitivity 16.2 ng/L (<3.5-17.0)
[2023-04-15 11:12] LABS: MRSA Nasal PCR NEGATIVE (Negative); SA Nasal PCR NEGATIVE (Negative)
--- NOTE | 2023-04-15 11:28 | PHA.MEDREC ---
Pharmacy Consult ? Medication Reconciliation Pharmacy has completed the medication reconciliation. Spoke to patient's son Filemon to confirm meds. He knows all meds.
--- NOTE | 2023-04-15 11:32 | P.HPHOSP_ITS ---
the patient was seen and evaluated with VIRIDIANA Mcgregor. I agree with his note, assessment and plan with the following. 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 Found to be hypoxic with CT showing patchy infiltrate Hypoxia 2/2 Lung cancer, COPD and Pneumonia Antibiotics Steroids, nebulizers Pulm and Oncology consult Rest of evaluations by PA note. 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 Patient states yesterday her breathing gradually got worse to the point last night where she simply ?could not breathe. Reports increased fatigue and that she ?feels terrible.? Patient also complains of lower back pain that she has been experiencing since laying on the table for radiation treatment. Has had chronic lower leg swelling has seems about baseline. Cough is productive of yellowish sputum. Of note, patient received radiation treatments at [facility], and started on chemotherapy with Dr. Centeno this past Wednesday04/12/2023. Patient is also recently received Neulasta injection. Denies chest pain/pressure, palpitations. No fever, chills, nausea or vomiting. In the ED patient was afebrile but tachycardic up to 100 and tachypneic up to 23, slightly hypertensive at 149/62, and satting at 98% on RA. Labs were significant for leukocytosis of 41.4 (elevated from 25.6 one week prior), lactic acid 2.6, AST 32, ALT 58, alk-phos 181, initial troponin 17.8 with repeat flat at 16.2, D-dimer elevated at 1181.. Electrolytes WNL. Renal function baseline. BNP negative at 78. Nasal screen for MRSA, Staph aureus negative. Respiratory viral panel negative. CXR showed a right perihilar and upper lung opacity consistent with known tumor, which showed developing process in the left and left base consistent with atelectasis/infiltrate. Chest CT negative for PE, aortic dissection, or aneurysm. Did not find any significant change in the large right upper lobe mass with likely direct extension to the right mediastinum, but did find abnormal metastatic subcarinal and precarinal lymphadenopathy. Patchy opacity in the superior segment of right lower lobe similar to previous study. Other findings include chronic T7 vertebral fracture and new superior endplate deformity of L1 vertebra likely acute. Also demonstrated heterogeneous left kidney mass. EKG demonstrated sinus rhythm with PVCs at 99 B p.m. Pt was treated with DuoNebs, Solu-Medrol, cefepime and azithromycin, and IVF. Pt will be admitted to the hospital for acute respiratory failure in the setting of metastatic lung cancer, COPD exacerbation and possible pneumonia. Review of Systems Review of Systems: Increasing SOB Increasing productive cough Wheezing Increased fatigue Lower back pain Denies fever, chills, nausea, vomiting, diarrhea No chest pain/pressure, palpitations Yes all other systems are reviewed and are negative [facility] Medical History Basal cell carcinoma Port-A-Cath in place (~02/03/23) Family History Sister Thyroid cancer Breast cancer Kidney stone Father Rectal cancer Surgical History History of tonsillectomy S/P pulmonary artery branches stent placement (~2022) [place] teeth extracted Social History Alcohol intake: never Patient Tobacco Use Status: Former Tobacco user Tobacco use type: Cigarette Smoked in Last 30 Days: Yes Use of substances other than those prescribed or required for medical reasons: No Advance Directives: No Advance Directives Information Provided: Yes service: No Current occupational status: retired Meds Allergies Allergy/AdvReac Type Severity Reaction Status Date / Time meperidine [From Demerol] Allergy Unknown Unknown Verified 02/16/23 13:10 Active Medications: Current Medications Azithromycin 500 mg/ Sodium (Chloride) 250 mls @ 125 mls/hr IV ONCE ONE Stop: 04/15/23 11:43 Last Admin: 04/15/23 10:11 Dose: 125 mls/hr Home Medications Medication Instructions Recorded Confirmed Last Taken Type albuterol sulfate 2.5 mg/3 mL 2.5 mg inhalation Q6H PRN wheezing 03/08/23 04/15/23 Unknown History (0.083 %) solution for nebulization folic acid 1 mg tablet 1 mg PO BEDTIME 03/08/23 04/15/23 04/14/23 History metoprolol succinate 50 mg 50 mg PO BEDTIME 03/08/23 04/15/23 04/14/23 History tablet,extended release 24 hr omeprazole 20 mg capsule,delayed 20 mg PO DAILY@0630 03/08/23 04/15/23 04/14/23 History release acetaminophen 325 mg tablet 650 mg PO Q6H PRN Pain 04/15/23 04/15/23 Unknown History (Tylenol) dexamethasone 4 mg tablet 4 mg PO ONCE 04/15/23 04/15/23 04/14/23 History dextromethorphan-guaifenesin 10 10 ml PO Q4H PRN Congestion 04/15/23 04/15/23 Unknown History mg-200 mg/5 mL oral liquid furosemide 20 mg tablet (Lasix) 20 mg PO DAILY 04/15/23 04/15/23 04/14/23 History multivitamin 1 tab PO DAILY 04/15/23 04/15/23 04/14/23 History sodium chloride 3 % for 4 ml inhalation TID PRN sputum 04/15/23 04/15/23 Unknown History nebulization production Physical Exam Vital Signs and Narrative: Vital Signs: Last Vital Signs Temp 97.8 F 04/15/23 08:49 Pulse 95 04/15/23 10:47 Resp 23 H 04/15/23 10:47 BP 149/62 H 04/15/23 10:47 Pulse Ox 98 04/15/23 10:47 O2 Del Method Nasal Cannula 04/15/23 10:47 O2 Flow Rate 4 04/15/23 10:47 Constitutional: Alert, ill/tired-appearing, in no acute distress. Only capable of speaking in a whisper. Audible expiratory wheezing. Mental Status: Oriented to person, place and time. Eyes: Pupils are equal, round, and reactive to light. Ear, Nose, and Throat: Oropharynx clear, mucous membranes moist. Ears and nose without deformities. Trachea midline. Respiratory: Diffuse inspiratory and expiratory rhonchi. Cardiovascular: S1, S2, tachy. No murmurs, rubs, or gallops. Gastrointestinal: Abdomen soft, non-tender, non-distended. Normal bowel sounds. Neurologic: Cranial nerves II-XII are grossly intact bilaterally. No focal neurological deficits. Moves all extremities spontaneously. Skin: No rashes or lesions noted. Musculoskeletal: No cyanosis or clubbing. Extremities: 1+ bilateral lower leg edema. Psychiatric: Normal mood and affect. Results Labs 04/15/23 06:52 04/15/23 06:52 Labs: Laboratory Results - last 24 hr 04/15/23 04/15/23 04/15/23 06:52 06:52 06:52 MCV 95.3 MCH 31.3 MCHC 32.8 RDW 17.7 H Plt Count 283 MPV 9.9 Immature Gran % (Auto) Cancelled Neut % (Auto) Cancelled Lymph % (Auto) Cancelled [place] % (Auto) Cancelled Eos % (Auto) Cancelled Baso % (Auto) Cancelled Lymph # (Auto) Cancelled [place] # (Auto) Cancelled Eos # (Auto) Cancelled Baso # (Auto) Cancelled Abs Immat Gran (auto) Cancelled Absolute Neuts (auto) Cancelled Absolute Nucleated RBC 0.000 Nucleated RBC % (auto) 0.0 Neutrophils % (Manual) 93 H Band Neutrophils % 7 H Abs Neuts (Manual) 41.4 H Toxic Vacuolation PRESENT Platelet Estimate NORMAL Plt Morphology Comment NORMAL RBC Morphology NOTED [place] Cells 1+ (0-2) D-Dimer High Sensitivty 1181 VBG pH VBG pCO2 VBG pO2 VBG HCO3 VBG O2 Saturation VBG Base Excess Anion Gap 13 Estim Creat Clear Calc TNP Estimated GFR > 60 Random Glucose 81 Lactic Acid Lactic Acid F/U @ 2Hr Calcium 9.6 Magnesium 1.7 Total Bilirubin 0.9 Direct Bilirubin 0.4 AST 32 H ALT 58 H Alkaline Phosphatase 181 H B-Natriuretic Peptide Total Protein 5.6 L Albumin 3.0 L Lipase 14 Nasal Screen MRSA (PCR) Nasal S. aureus Screen Nasal MRSA/S.aureus Interp Respiratory Panel Velásquez Adenovirus (Rapid PCR) B.pert (TEM-PCR) B.parapertussis DNA PCR C. pneumoniae DNA (PCR) Coronavirus OC43 (PCR) Coronavirus HKU1 (PCR) Coronavirus 229E (PCR) Coronavirus NL63 (PCR) Human Metapneumovir PCR Influenza A (RT-PCR) Influenza B (RT-PCR) M. pneumoniae (PCR) Parainfluenza 1 (PCR) Parainfluenza 2 (PCR) Parainfluenza 3 (PCR) Parainfluenza 4 (PCR) RSV (PCR) Entero/Rhino (PCR) SARS-CoV-2 RNA (RT-PCR) 04/15/23 04/15/23 04/15/23 06:52 06:52 06:53 MCV MCH MCHC RDW Plt Count MPV Immature Gran % (Auto) Neut % (Auto) Lymph % (Auto) [place] % (Auto) Eos % (Auto) Baso % (Auto) Lymph # (Auto) [place] # (Auto) Eos # (Auto) Baso # (Auto) Abs Immat Gran (auto) Absolute Neuts (auto) Absolute Nucleated RBC Nucleated RBC % (auto) Neutrophils % (Manual) Band Neutrophils % Abs Neuts (Manual) Toxic Vacuolation Platelet Estimate Plt Morphology Comment RBC Morphology [place] Cells D-Dimer High Sensitivty VBG pH VBG pCO2 VBG pO2 VBG HCO3 VBG O2 Saturation VBG Base Excess Anion Gap Estim Creat Clear Calc Estimated GFR Random Glucose Lactic Acid 2.6 H* Lactic Acid F/U @ 2Hr Calcium Magnesium Total Bilirubin Direct Bilirubin AST ALT Alkaline Phosphatase B-Natriuretic Peptide 78 Total Protein Albumin Lipase Nasal Screen MRSA (PCR) Nasal S. aureus Screen Nasal MRSA/S.aureus Interp Respiratory Panel Velásquez See Note Adenovirus (Rapid PCR) Not Detected B.pert (TEM-PCR) Not Detected B.parapertussis DNA PCR Not Detected C. pneumoniae DNA (PCR) Not Detected Coronavirus OC43 (PCR) Not Detected Coronavirus HKU1 (PCR) Not Detected Coronavirus 229E (PCR) Not Detected Coronavirus NL63 (PCR) Not Detected Human Metapneumovir PCR Not Detected Influenza A (RT-PCR) Not Detected Influenza B (RT-PCR) Not Detected M. pneumoniae (PCR) Not Detected Parainfluenza 1 (PCR) Not Detected Parainfluenza 2 (PCR) Not Detected Parainfluenza 3 (PCR) Not Detected Parainfluenza 4 (PCR) Not Detected RSV (PCR) Not Detected Entero/Rhino (PCR) Not Detected SARS-CoV-2 RNA (RT-PCR) Not Detected 04/15/23 04/15/23 04/15/23 07:00 09:35 09:43 MCV MCH MCHC RDW Plt Count MPV Immature Gran % (Auto) Neut % (Auto) Lymph % (Auto) [place] % (Auto) Eos % (Auto) Baso % (Auto) Lymph # (Auto) [place] # (Auto) Eos # (Auto) Baso # (Auto) Abs Immat Gran (auto) Absolute Neuts (auto) Absolute Nucleated RBC Nucleated RBC % (auto) Neutrophils % (Manual) Band Neutrophils % Abs Neuts (Manual) Toxic Vacuolation Platelet Estimate Plt Morphology Comment RBC Morphology [place] Cells D-Dimer High Sensitivty VBG pH 7.43 VBG pCO2 48 VBG pO2 37 VBG HCO3 33 H VBG O2 Saturation 52.0 VBG Base Excess 7.7 Anion Gap Estim Creat Clear Calc Estimated GFR Random Glucose Lactic Acid Lactic Acid F/U @ 2Hr 1.1 Calcium Magnesium Total Bilirubin Direct Bilirubin AST ALT Alkaline Phosphatase B-Natriuretic Peptide Total Protein Albumin Lipase Nasal Screen MRSA (PCR) NEGATIVE Nasal S. aureus Screen NEGATIVE Nasal MRSA/S.aureus Interp SEE NOTE Respiratory Panel Velásquez Adenovirus (Rapid PCR) B.pert (TEM-PCR) B.parapertussis DNA PCR C. pneumoniae DNA (PCR) Coronavirus OC43 (PCR) Coronavirus HKU1 (PCR) Coronavirus 229E (PCR) Coronavirus NL63 (PCR) Human Metapneumovir PCR Influenza A (RT-PCR) Influenza B (RT-PCR) M. pneumoniae (PCR) Parainfluenza 1 (PCR) Parainfluenza 2 (PCR) Parainfluenza 3 (PCR) Parainfluenza 4 (PCR) RSV (PCR) Entero/Rhino (PCR) SARS-CoV-2 RNA (RT-PCR) Imaging Radiologist's Impressions: Impressions Chest X-Ray 04/15/23 06:43 IMPRESSION: Right perihilar and upper lung opacity consistent with known tumor. Developing process the left at the left base consistent with atelectasis/infiltrate Chest CTA 04/15/23 08:40 IMPRESSION: No evidence of PE. No evidence aortic dissection or aneurysm. No significant change in the large right upper lobe mass with likely direct extension to the right mediastinum. Abnormal metastatic subcarinal and precarinal lymphadenopathy. Left adrenal lipoma. Likely chronic T7 vertebral fracture. There is a new superior endplate deformity L1 vertebra likely acute. Heterogeneous left kidney mass. Recommend further evaluation with MRI. 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 Patient states yesterday her breathing gradually got worse to the point last night where she simply ?could not breathe. Pt will be admitted to the hospital for acute respiratory failure in the setting of metastatic lung cancer, COPD exacerbation and possible pneumonia. Acute respiratory failure Multifactorial: Metastatic lung cancer, COPD exacerbation, possible pneumonia CXR showed developing process in the left and left base consistent with atelectasis/infiltrate CTA negative for PE, aortic dissection, or aneurysm, patchy opacity in the superior segment of right lower lobe similar to previous study Solu-Medrol 40mg IV q12 Miguel Pt meets sepsis criteria with WBC, tachycardia, tachypnea, lactic acid Patient given IVF in ED and started on broad-spectrum antibiotics Will cover with IV antibiotics: azithromycin, cefepime 2g IV q8 Continue supplemental O2, titrate >92, wean as tolerated Will check procalcitonin Pulmonology consult [id number] lung cancer with 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, diagnosed 12/2022 Received radiation treatments at [facility], and started on chemotherapy with Dr. Centeno this past Wednesday04/12/2023. Heme/Onc consult Leukocytosis WBC 41.4 Marked elevation likely d/t Neulasta injection, steroid use Lactic acidosis, resolved Lactic acid 2.6 at time of presentation Given IVF, BP WNL 1.1 Elevated troponin Initial troponin 17.8 with repeat flat at 16.2 Patient asymptomatic, EKG negative for ST elevations or depressions Most likely type 2 in the setting of demand ischemia HTN Continue metoprolol Chronic lower leg edema Continue home Lasix Full Code Attending:?Dr. Hall DVT Prophylaxis: Lovenox Pt will require a hospitalization of at least two nights for treatment of?acute respiratory failure in the setting of metastatic lung cancer, COPD exacerbation, and possible pneumonia with IV antibiotics, high-dose IV steroids, and breathing treatments. Time Spent With Patient Time: Total time managing care of this patient today ____ minutes. Quality Stroke Does the patient have a stroke diagnosis?: No VTE Prior VTE?: No VTE Risk Level:: Medical - moderate - high VTE Device Contraindication: Treatment Not Indicated VTE Drug Contraindication: N/A - Med Ordered
--- NOTE | 2023-04-15 12:39 | PM.HEMONCCN ---
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 Previously measured 3.8 x 2.7 cm. Lymphangitic spread of tumor noted, extensive confluent mediastinal adenopathy contiguous with right hilar mass, 1.5 cm left adrenal nodule and a 1.9 cm hypodense lesion in the left upper pole of kidney. On 11/11/2022 patient had core needle biopsy of left renal mass which was reported as renal cell carcinoma, clear cell type. 01/14/2023 brain MRI ([facility]) showed multiple intracranial enhancing lesions present within left precentral gyrus, right precentral gyrus, right frontal, left cerebellum and right temporal lobe. Compatible with metastatic foci, there was associated vasogenic edema and swelling of left precentral gyrus. HPI - Consult Narrative Reason for consult: Leukocytosis, shortness of breath, recent chemotherapy Narrative: Michelle Estrada is a 82 year old woman with metastatic lung adenocarcinoma with brain metastasis who is here with complaints of shortness of breath. She received chemo/immunotherapy 2 days ago and she is here because of worsening shortness of breath. She denies any fever or chills. She has a chronic cough. She continues to smoke although not as much. She has no other complaints such as nausea or emesis. Had a poor appetite for several months. Review of Systems - Constitutional Reports as per HPI, Reports malaise, Reports weakness, Reports weight loss, Denies headache(s) - Cardiovascular Reports system reviewed and no additional complaints, except as documented - Respiratory Reports no additional respiratory complaints - Gastrointestinal Reports system reviewed and no additional complaints, except as documented PMFSH Medical History: Medical History (Last Reviewed 04/15/23 @ 12:38 by VIRIDIANA Mcgregor) Basal cell carcinoma Port-A-Cath in place Onset Date: ~02/03/23 Family History: Family History (Last Reviewed 04/15/23 @ 12:38 by VIRIDIANA Mcgregor) Sister Thyroid cancer Breast cancer Kidney stone Father Rectal cancer Surgical History: Surgical History (Last Reviewed 04/15/23 @ 12:38 by VIRIDIANA Mcgregor) History of tonsillectomy S/P pulmonary artery branches stent placement Onset Date: ~2022 [place] teeth extracted Social History: Social History (Last Reviewed 04/15/23 @ 12:38 by VIRIDIANA Mcgregor) Living Situation History: Household Members: Children Housing: House Do you presently have visiting nurse or other home services: No Tobacco History: Patient Tobacco Use Status: Former Tobacco user Tobacco use type: Cigarette Occupation Assessmet: service: No Current occupational status: retired Home Medications and Allergies Current Medications: Current Medications Acetaminophen (Acetaminophen 325 Mg Tablet) 650 mg PO Q6H PRN PRN Reason: Pain, Mild (Pain Scale 1-3) Albuterol Sulfate (Albuterol Sulfate (0.083%) 2.5 Mg/3 Ml Vial.Neb) 2.5 mg INHALE Q6H PRN PRN Reason: wheezing Albuterol/Ipratropium (Albuterol/Iprat 2.5/0.5mg 3 Ml Ampul.Neb) 3 ml INHALE RQ4H WHILE AWAKE RAQUEL Docusate Sodium (Docusate Sodium 100 Mg Capsule) 100 mg PO DAILY PRN PRN Reason: Constipation Enoxaparin Sodium (Enoxaparin Sodium 40 Mg/0.4 Ml Syringe) 40 mg SUBCUT Q24H RAQUEL Folic Acid (Folic Acid 1 Mg Tablet) 1 mg PO BEDTIME RAQUEL Furosemide (Furosemide 20 Mg Tablet) 20 mg PO DAILY RAQUEL; Protocol Azithromycin 500 mg/ Sodium (Chloride) 250 mls @ 125 mls/hr IV Q24H RAQUEL Cefepime HCl 2 gm/ Sodium (Chloride) 50 mls @ 100 mls/hr IV Q8H RAQUEL Methylprednisolone Sodium Succinate (Methylprednisolone Sod Succ 40 Mg/Ml Vial) 40 mg IVPUSH Q12H RAQUEL Metoprolol Succinate (Metoprolol Succinate Er 50 Mg Tab.Er.24h) 50 mg PO BEDTIME RAQUEL; Protocol Multivitamins/Vitamin C (Multivitamin Tablet) 1 tab PO DAILY RAQUEL Non-Formulary Medication (Dextromethorphan-Guaifenesin) 10 ml PO Q4H PRN PRN Reason: Congestion Omeprazole (Omeprazole 20 Mg Capsule.Dr) 20 mg PO DAILY@0630 RAQUEL Ondansetron HCl (Ondansetron Hcl 4 Mg/2 Ml Vial) 4 mg IVPUSH Q8H PRN PRN Reason: Nausea and Vomiting Oxycodone HCl (Oxycodone Hcl Immed Release 5 Mg Tablet) 5 mg PO Q8H PRN PRN Reason: Pain, Moderate(Pain Scale 4-6) Sodium Chloride (0.9 % Sodium Chloride Flush 3 Ml Syringe) 3 ml IVFLUSH QSHIFT RAQUEL Sodium Chloride (Sodium Chloride 3 % Inhalation 15 Ml Vial.Neb) 4 ml INHALE TID PRN PRN Reason: sputum production Home Medications Medication Instructions Recorded Confirmed Type albuterol sulfate 2.5 mg/3 mL 2.5 mg inhalation Q6H PRN wheezing 03/08/23 04/15/23 History (0.083 %) solution for nebulization folic acid 1 mg tablet 1 mg PO BEDTIME 03/08/23 04/15/23 History metoprolol succinate 50 mg 50 mg PO BEDTIME 03/08/23 04/15/23 History tablet,extended release 24 hr omeprazole 20 mg capsule,delayed 20 mg PO DAILY@0630 03/08/23 04/15/23 History release acetaminophen 325 mg tablet 650 mg PO Q6H PRN Pain 04/15/23 04/15/23 History (Tylenol) dexamethasone 4 mg tablet 4 mg PO ONCE 04/15/23 04/15/23 History dextromethorphan-guaifenesin 10 10 ml PO Q4H PRN Congestion 04/15/23 04/15/23 History mg-200 mg/5 mL oral liquid furosemide 20 mg tablet (Lasix) 20 mg PO DAILY 04/15/23 04/15/23 History multivitamin 1 tab PO DAILY 04/15/23 04/15/23 History sodium chloride 3 % for 4 ml inhalation TID PRN sputum 04/15/23 04/15/23 History nebulization production Allergies Allergy/AdvReac Type Severity Reaction Status Date / Time meperidine [From Demerol] Allergy Unknown Unknown Verified 02/16/23 13:10 Physical Exam Vital signs: Vital Signs Temp 97.8 F 04/15/23 08:49 Pulse 95 04/15/23 10:47 Resp 23 H 04/15/23 10:47 BP 149/62 H 04/15/23 10:47 Pulse Ox 98 04/15/23 10:47 O2 Del Method Nasal Cannula 04/15/23 10:47 O2 Flow Rate 4 04/15/23 10:47 Intake & Output 04/14/23 04/15/23 04/15/23 18:59 06:59 18:59 Intake Total 800 / 800 Balance 800 / 800 Intake: Intake, IV Amount 800 / 800 0.9 % Sodium Chloride 500 ml @ 500 / 500 500 mls/hr IV .Q1H RAQUEL Rx#: [id number] Azithromycin 500 mg In 0.9 % 250 / 250 Sodium Chloride 250 ml @ 125 mls/hr IV ONCE ONE Rx#: [id number] cefEPime HCl 2 gm In 0.9 % 50 / 50 Sodium Chloride 50 ml @ 100 mls /hr IV ONCE ONE Rx#:[id number] - Constitutional Present: mild distress, chronically ill appearing, disheveled - Routine HEENT Exam Head: Present: normal inspection Eye: Present: conjunctivae pale - Routine Neck Exam Present: supple. Absent: lymphadenopathy - Routine Respiratory Exam Present: accessory muscle use, prolonged expiratory phase, wheezes - Routine Cardiovascular Exam Cardiovascular: Present: S1, S2, tachycardia - Routine Abdominal Exam Present: soft - Routine Extremities Exam Absent: calf tenderness - Routine Skin Exam Present: intact. Absent: cyanosis Hem/Onc Consult Result - Labs CBC & Chem 7: 04/15/23 06:52 04/15/23 06:52 Labs: Short CBC 04/15/23 Range/Units 06:52 WBC 41.4 H* (4.8-10.8) X10*3/uL Hgb 12.7 (12.0-16.0) g/dl Hct 38.7 (37.0-47.0) % Plt Count 283 (160-400) X10*3/uL BMP 04/15/23 06:52 Sodium 137 Potassium 4.1 Chloride 99 Carbon Dioxide 29 BUN 32 H Creatinine 0.68 Calcium 9.6 Liver Function 04/15/23 Range/Units 06:52 Total Bilirubin 0.9 (0.0-1.0) mg/dL Direct Bilirubin 0.4 (0.0-0.5) mg/dL AST 32 H (5-31) U/L ALT 58 H (0-31) U/L Alkaline Phosphatase 181 H (39-117) U/L Albumin 3.0 L (3.5-5.0) g/dL Assessment and Plan Patient Active problem list reviewed?: Yes (1) Non-small cell lung cancer Status: Acute Assessment and plan: 1. This is a 82-year-old woman with metastatic non-small cell lung cancer, adenocarcinoma with brain metastasis diagnosed in December 2022 at [facility]. Biopsy/excision of right endobronchial mass performed at [facility] on 12/16/[address] Flower at [facility] revealed adenocarcinoma. 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 She was started on dexamethasone and referred back to Radiation Oncology at [facility] for radiation therapy. She received stereotactic radiation therapy from 03/23/23 to 04/06/23. She received 1st dose of palliative chemo immunotherapy with carboplatin, pemetrexed and pembrolizumab on 04/12/23. She did receive Neulasta which can explain her leukocytosis. She is also on a steroid taper which can be contributing to her leukocytosis. CT angiogram performed today does not show pulmonary embolism or significant change from her large right upper lobe mass as well as adenopathy that was noted on prior imaging from a few days ago. I agree with treating her empirically for pneumonia. I recommend pulmonary consultation. Thank you. - Time Spent With Patient Time Spent with Patient (in minutes): 15
[2023-04-15] MEDS: Furosemide 20 MG TABLET PO (12:52)
[2023-04-15 13:22] LABS: Procalcitonin 6.08 ng/mL
[2023-04-15] MEDS: Multivitamin TABLET 1 TAB PO (13:59)
[2023-04-15] MEDS: Omeprazole 20 MG CAPSULE.DR PO (13:59)
[2023-04-15] MEDS: Enoxaparin Sodium 40 MG/0.4 ML SYRINGE SUBCUT (13:59)
[2023-04-15] MEDS: Albuterol/Iprat 2.5/0.5MG 3 ML AMPUL.NEB INHALE (15:08)
[2023-04-15] MEDS: 0.9 % Sodium Chloride Flush 3 ML SYRINGE IVFLUSH (15:19)
--- NOTE | 2023-04-15 17:12 | PC.NURSE ---
CORRESPONDENCE REPRESENTATIVE came to this chief writer stating patient feels like she is choking. Patient talking during coughing fit. Oral suction with some effect, O2 95%. Resp paged to assess. Primary nurse at bedside.
[2023-04-15 17:44] LABS: Glucose, Whole Blood 119 mg/dL (60-115)
--- NOTE | 2023-04-15 17:56 | PM.EVENT ---
Documented by User: VIRIDIANA Mcgregor 04/15/23 18:12 Event Note Date of Service: 04/15/23 Event Note: Rapid response called for patient with apnea. Patient was receiving DuoNeb updraft when she been having difficulty breathing and increasing cough. Was then given an inhaler with no relief of symptoms. Patient had recently had dinner so RT provided deep suctioning out of concern for aspiration of phlegm/food, and the patient began coughing and choking. No phlegm or food was suctioned. Patient then stopped breathing and began to become cyanotic. Rapid response was called and patient spontaneously recovered. Was able to speak in complete sentences. EKG showed sinus tachycardia in the 170s. Patient was asymptomatic: Denied chest pain/pressure, palpitations. And currently satting at 99% on 2L. Patient was then transferred to telemetry. Patient will be made NPO pending swallow and speech evaluation. Head of bed elevation, aspiration precautions, suctioning q4. Time Spent With Patient Time: Total time managing care of this patient today ____ minutes. Documented by User: Yoel Shirley MD 04/15/23 18:51 Event Note Date of Service: 04/15/23 Event Note: Rapid response called for patient with apnea. Patient was receiving DuoNeb updraft when she been having difficulty breathing and increasing cough. Was then given an inhaler with no relief of symptoms. Patient had recently had dinner so RT provided deep suctioning out of concern for aspiration of phlegm/food, and the patient began coughing and choking. No phlegm or food was suctioned. Patient then stopped breathing and began to become cyanotic. Rapid response was called and patient spontaneously recovered. Was able to speak in complete sentences. EKG showed possible svt intially which spontaneously converted to sinus . Patient was asymptomatic: Denied chest pain/pressure, palpitations. And currently satting at 92% on 2L. Patient was then transferred to telemetry. Patient will be made NPO pending swallow and speech evaluation. Head of bed elevation, aspiration precautions, suctioning q4.
--- NOTE | 2023-04-15 18:03 | PC.NURSE ---
1730 pt having difficulty breathing , auditory wheezes heard . Respiratory and this nurse at bedside . Respiratory attempted to deep suction , pt began to have extreme difficulty breathing , pt lips turned blue , pt unable to move any air . rapid response called . HR 172 BP 185/91 02 93 on non rebreather mask . pt able to maintain airway 1732 , BP 169/80 pulse 175 02 93 non reabreather mask. 1740 bp 140/67 HR 103 02 90 pt transitioned to 2L NC. EKG done , CXR ordered , pt transferred to [facility] . report given to allison méndez RN
[2023-04-15] MEDS: methylPREDNISolone Sod Succ 40 MG/ML VIAL IVPUSH (18:29)
--- NOTE | 2023-04-15 18:31 | PC.NURSE ---
Patient arrived to med tele unit from med surg floor at 1810 after rapid response. Patient arrived via stretcher. Patient alert and oriented x 3. denies any pain. VSS. sinus tach low 100s on telemetry. 02 92% on 2.5l NC. No respiratory distress noted. Patient states, i feel alot better . Oriented to room and call steward. High fall risk interventions in place.
[2023-04-15] MEDS: Piperacillin Sodium/Tazobactam 3.375 GM in 0.9 % Sodium Chloride 50 ML IV (20:56)
[2023-04-15 23:59] LABS: Anion Gap 13 (12-20); Blood Urea Nitrogen 29 mg/dL (9-16); Calcium 8.7 mg/dL (8.4-10.2); Carbon Dioxide 29 mmol/L (22-29); Chloride 99 mmol/L (96-108); Creatinine Clr Calc Pharmacy 67.9; Estimated Glomerular Filt Rate > 60; Glucose Random 104 mg/dL (60-115); Magnesium 1.8 mg/dL (1.6-2.6); Potassium 3.9 mmol/L (3.3-5.1); Sodium 137 mmol/L (135-145)
[2023-04-16] VITALS (11 sets, daily range): BP systolic 116–179; BP diastolic 59–76; PULSE 89–145; RESP 16–22; TEMP 36.2–36.9; O2SAT 93–99; BMI 22.6
[2023-04-16] MEDS: Morphine Sulfate 4 MG/ML CARTRIDGE IVPUSH (00:20)
[2023-04-16] MEDS: 0.9 % Sodium Chloride Flush 3 ML SYRINGE IVFLUSH ×3 (00:22→21:31)
--- NOTE | 2023-04-16 01:39 | PC.NURSE ---
Pt A&OX4. ELY SHOSHONE. VSS. Telemetry SR w/occassional pvc's. Pt had a couple of runs of EDD-Dr Gauthier aware and ordered labs and ekg-obtained and sent to . Pt was asymptomatic the first time but stated she was sob the second time (however, she was up on the commode). Pt c/o back pain. Dr notified since patient is NPO and meds are ordered PO. IV Morphine given with good effect. Pt sleeping comfortably in bed with bed alarm and camera on for patient safety. Pt remains NPO until swallow eval. Buttocks red-barrier cream applied and pt repositioned Q2 hours.
[2023-04-16] MEDS: Piperacillin Sodium/Tazobactam 3.375 GM in 0.9 % Sodium Chloride 50 ML IV ×4 (03:48→21:31)
[2023-04-16] MEDS: methylPREDNISolone Sod Succ 40 MG/ML VIAL IVPUSH ×2 (06:22→18:24)
[2023-04-16 06:55] LABS: Hematocrit 35.2 % (37.0-47.0); Hemoglobin 11.4 g/dl (12.0-16.0); Mean Corpuscular HGB Conc 32.4 g/dl (31.0-35.0); Mean Corpuscular Hemoglobin 30.9 pg (27.0-33.0); Mean Corpuscular Volume 95.4 fL (80.0-98.0); Mean Platelet Volume 10.6 fL (9.4-12.3); Platelet Count 238 X10*3/uL (160-400); Red Blood Count 3.69 X10*6/uL (4.20-5.50); Red Cell Distribution Width 17.4 % (11.0-16.0)
[2023-04-16 07:11] LABS: Anion Gap 13 (12-20); Blood Urea Nitrogen 28 mg/dL (9-16); Calcium 8.7 mg/dL (8.4-10.2); Carbon Dioxide 30 mmol/L (22-29); Chloride 99 mmol/L (96-108); Creatinine Clr Calc Pharmacy 72.7; Estimated Glomerular Filt Rate > 60; Glucose Random 81 mg/dL (60-115); Potassium 3.8 mmol/L (3.3-5.1); Sodium 138 mmol/L (135-145)
[2023-04-16 07:14] LABS: White Blood Count 32.7 X10*3/uL (4.8-10.8)
--- NOTE | 2023-04-16 09:29 | P.PNIM_ITS ---
Subjective Subjective Date of Service: 04/16/23 Interval History: seen and evaluated this morning Feels dyspniec and wheezy had episode of hypoxia and chocking last night NPO now Feels weak but no fever or chills Review of Systems Review of Systems: Yes all other systems are reviewed and are negative Physical Exam Vital Signs: Vital Signs: Last Vital Signs Temp 97.1 F 04/16/23 07:42 Pulse 97 04/16/23 08:13 Resp 16 04/16/23 07:42 BP 164/76 H 04/16/23 08:13 Pulse Ox 95 04/16/23 08:13 O2 Del Method Nasal Cannula 04/16/23 07:42 O2 Flow Rate 3 04/16/23 07:42 BMI result Body Mass Index 22.6 Const: Other: Constitutional : Awake, interactive, in mild respiratory distress Neck : Normal inspection, Supple Cardiovascular : RRR, no JVP, no lower extremity edema Respiratory : decreased bilateral air entry, basal bilateral crackles, e xpiratory wheezes with evidence of stridors , on O2 supplement Gastrointestinal: soft, lax, Normal bowel sounds, Non tender Skin : Warm, Dry Neurological : Alert & oriented x3, No focal deficit Objective Data Active Medications Acetaminophen (Acetaminophen 325 Mg Tablet) 650 mg PO Q6H PRN PRN Reason: Pain, Mild (Pain Scale 1-3) Albuterol Sulfate (Albuterol Sulfate (0.083%) 2.5 Mg/3 Ml Vial.Neb) 2.5 mg I NHALE Q6H PRN PRN Reason: wheezing Docusate Sodium (Docusate Sodium 100 Mg Capsule) 100 mg PO DAILY PRN PRN Reason: Constipation Enoxaparin Sodium (Enoxaparin Sodium 40 Mg/0.4 Ml Syringe) 40 mg SUBCUT Q24H RAQUEL Last Admin: 04/15/23 13:59 Dose: 40 mg Documented By: SALVADOR Folic Acid (Folic Acid 1 Mg Tablet) 1 mg PO BEDTIME RAQUEL Last Admin: 04/15/23 20:57 Dose: Not Given Documented By: KAYLIE Non-Admin Reason: NPO Furosemide (Furosemide 20 Mg Tablet) 20 mg PO DAILY [facility]; Protocol Last Admin: 04/15/23 12:52 Dose: 20 mg Documented By: SALVADOR Guaifenesin/Dextromethorphan (Guaifenesin Dm 200/20/10 Ml 10 Ml Syrup) 10 ml PO Q4H PRN PRN Reason: Congestion Azithromycin 500 mg/ Sodium (Chloride) 250 mls @ 125 mls/hr IV Q24H RAQUEL Piperacillin Sod/Tazobactam (Sod 3.375 gm/ Sodium Chloride) 50 mls @ 100 mls/hr IV Q6H [facility] Last Infusion: 04/16/23 04:18 Dose: 0 mls/hr Documented By: KAYLIE Levalbuterol HCl (Levalbuterol Hcl 1.25 Mg/3 Ml Vial.Neb) 1.25 mg INHALE Q4H [facility] Last Admin: 04/16/23 06:16 Dose: Not Given Documented By: MIGUEL Non-Admin Reason: See Note Methylprednisolone Sodium Succinate (Methylprednisolone Sod Succ 40 Mg/Ml Vial) 40 mg IVPUSH Q12H [facility] Last Admin: 04/16/23 06:22 Dose: 40 mg Documented By: KAYLIE Metoprolol Succinate (Metoprolol Succinate Er 50 Mg Tab.Er.24h) 50 mg PO BEDTIME [facility]; Protocol Last Admin: 04/15/23 20:57 Dose: Not Given Documented By: KYALIE Non-Admin Reason: NPO Multivitamins/Vitamin C (Multivitamin Tablet) 1 tab PO DAILY [facility] Last Admin: 04/15/23 13:59 Dose: 1 tab Documented By: SALVADOR Omeprazole (Omeprazole 20 Mg Capsule.Dr) 20 mg PO DAILY@0630 [facility] Last Admin: 04/16/23 06:22 Dose: Not Given Documented By: KAYLIE Non-Admin Reason: NPO Ondansetron HCl (Ondansetron Hcl 4 Mg/2 Ml Vial) 4 mg IVPUSH Q8H PRN PRN Reason: Nausea and Vomiting Oxycodone HCl (Oxycodone Hcl Immed Release 5 Mg Tablet) 5 mg PO Q8H PRN PRN Reason: Pain, Moderate(Pain Scale 4-6) Last Admin: 04/15/23 16:45 Dose: 5 mg Documented By: BEVERLY Sodium Chloride (0.9 % Sodium Chloride Flush 3 Ml Syringe) 3 ml IVFLUSH QSHIFT [facility] Last Admin: 04/16/23 00:22 Dose: 3 ml Documented By: KAYLIE Sodium Chloride (Sodium Chloride 3 % Inhalation 15 Ml Vial.Neb) 4 ml INHALE TID PRN PRN Reason: sputum production Labs 04/16/23 05:56 04/16/23 05:56 Labs: Laboratory Results - last 24 hr 04/15/23 04/15/23 04/15/23 06:52 06:52 09:35 MCV MCH MCHC RDW Plt Count MPV Absolute Nucleated RBC Nucleated RBC % (auto) Anion Gap Estim Creat Clear Calc Estimated GFR POC Glucose Random Glucose Lactic Acid F/U @ 2Hr Calcium Magnesium Procalcitonin 6.08 Nasal Screen MRSA (PCR) NEGATIVE Nasal S. aureus Screen NEGATIVE Nasal MRSA/S.aureus Interp SEE NOTE Respiratory Panel Velásquez See Note Adenovirus (Rapid PCR) Not Detected B.pert (TEM-PCR) Not Detected B.parapertussis DNA PCR Not Detected C. pneumoniae DNA (PCR) Not Detected Coronavirus OC43 (PCR) Not Detected Coronavirus HKU1 (PCR) Not Detected Coronavirus 229E (PCR) Not Detected Coronavirus NL63 (PCR) Not Detected Human Metapneumovir PCR Not Detected Influenza A (RT-PCR) Not Detected Influenza B (RT-PCR) Not Detected M. pneumoniae (PCR) Not Detected Parainfluenza 1 (PCR) Not Detected Parainfluenza 2 (PCR) Not Detected Parainfluenza 3 (PCR) Not Detected Parainfluenza 4 (PCR) Not Detected RSV (PCR) Not Detected Entero/Rhino (PCR) Not Detected SARS-CoV-2 RNA (RT-PCR) Not Detected 04/15/23 04/15/23 04/15/23 09:43 17:33 23:29 MCV MCH MCHC RDW Plt Count MPV Absolute Nucleated RBC Nucleated RBC % (auto) Anion Gap 13 Estim Creat Clear Calc 67.9 Estimated GFR > 60 POC Glucose 119 H Random Glucose 104 Lactic Acid F/U @ 2Hr 1.1 Calcium 8.7 D Magnesium 1.8 Procalcitonin Nasal Screen MRSA (PCR) Nasal S. aureus Screen Nasal MRSA/S.aureus Interp Respiratory Panel Velásquez Adenovirus (Rapid PCR) B.pert (TEM-PCR) B.parapertussis DNA PCR C. pneumoniae DNA (PCR) Coronavirus OC43 (PCR) Coronavirus HKU1 (PCR) Coronavirus 229E (PCR) Coronavirus NL63 (PCR) Human Metapneumovir PCR Influenza A (RT-PCR) Influenza B (RT-PCR) M. pneumoniae (PCR) Parainfluenza 1 (PCR) Parainfluenza 2 (PCR) Parainfluenza 3 (PCR) Parainfluenza 4 (PCR) RSV (PCR) Entero/Rhino (PCR) SARS-CoV-2 RNA (RT-PCR) 04/16/23 04/16/23 05:56 05:56 MCV 95.4 MCH 30.9 MCHC 32.4 RDW 17.4 H Plt Count 238 MPV 10.6 Absolute Nucleated RBC 0.000 Nucleated RBC % (auto) 0.0 Anion Gap 13 Estim Creat Clear Calc 72.7 Estimated GFR > 60 POC Glucose Random Glucose 81 Lactic Acid F/U @ 2Hr Calcium 8.7 Magnesium Procalcitonin Nasal Screen MRSA (PCR) Nasal S. aureus Screen Nasal MRSA/S.aureus Interp Respiratory Panel Velásquez Adenovirus (Rapid PCR) B.pert (TEM-PCR) B.parapertussis DNA PCR C. pneumoniae DNA (PCR) Coronavirus OC43 (PCR) Coronavirus HKU1 (PCR) Coronavirus 229E (PCR) Coronavirus NL63 (PCR) Human Metapneumovir PCR Influenza A (RT-PCR) Influenza B (RT-PCR) M. pneumoniae (PCR) Parainfluenza 1 (PCR) Parainfluenza 2 (PCR) Parainfluenza 3 (PCR) Parainfluenza 4 (PCR) RSV (PCR) Entero/Rhino (PCR) SARS-CoV-2 RNA (RT-PCR) Microbiology Microbiology Results: Microbiology 04/15/23 06:52 Blood Culture - Preliminary Blood - Venous No growth after 24 hours. 04/15/23 06:53 Blood Culture - Preliminary Blood - Venous No growth after 24 hours. 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 Patient states yesterday her breathing gradually got worse to the point last night where she simply ?could not breathe. Pt will be admitted to the hospital for acute respiratory failure in the setting of metastatic lung cancer, COPD exacerbation and possible pneumonia. Acute respiratory failure 2/2 sepsis with Metastatic lung cancer, COPD exacerbat ion, pneumonia CTA negative for PE but showing patchy opacity in the superior segment of right lower lobe Continue Solu-Medrol 40mg IV q12 DuoNebs Pt meets sepsis criteria with WBC, tachycardia, tachypnea, lactic acid Patient given IVF in ED and started on broad-spectrum antibiotics Will cover with IV antibiotics: azithromycin, cefepime 2g IV q8 Continue supplemental O2, titrate >92, wean as tolerated Pulmonology input appreciated Swallowing problem episode of chocking upon admission NPO pending [employer] eval Stridor for upper airways narrowing, Treat with epinephrine neb Pulm following [id number] lung cancer with 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, diagnosed 3 Received radiation treatments at [facility], and started on chemotherapy with Dr. Centeno this past Wednesday04/12/2023. Heme/Onc following Leukocytosis WBC trended down to 32k likely d/t Neulasta injection, steroid use Lactic acidosis, resolved Elevated troponin Patient asymptomatic, EKG negative for ST elevations or depressions Most likely type 2 in the setting of demand ischemia HTN Continue metoprolol Chronic lower leg edema Continue home Lasix Full Code DVT Prophylaxis: Lovenox Pt will require a hospitalization overnight for treatment of?acute respiratory failure in the setting of metastatic lung cancer, COPD exacerbation, and pneumonia with IV antibiotics, high-dose IV steroids, and breathing treatments. Time Spent With Patient Time: Total time managing care of this patient today ____ minutes. Quality Stroke Does the patient have a stroke diagnosis?: No VTE Prior VTE?: No VTE Risk Level:: Medical - moderate - high VTE Device Contraindication: Treatment Not Indicated VTE Drug Contraindication: N/A - Med Ordered
[2023-04-16] MEDS: Racepinephrine HCL 0.5 ML VIAL.NEB INHALE (09:39)
--- NOTE | 2023-04-16 11:10 | MHC.CM.PN ---
Addendum entered by Indira Mart 04/16/23 14:38: Family and pt requested to speak to CM, they are interested in STR once she is discharged and asked for a list fo STR facilities to review. STR list given t pt. Original Note: IMM 04/16. Pt admitted with shortness of breath. Pt with Stage 4 metastatic lung CA. Pt lives at home with her son, uses a walker and had no previous services. Pt started Chemotherapy this past Wednesday. D/C plan to return home with new VNA (per PT recommendations), pt prefers [facility]. Family present at bedside and also state they are interested in [facility] eldercare, as they state [facility] does not services [place]? CM will refer to appropriate elder care agency. HCP on file and verified. PCP: Nicolas Asif
[2023-04-16] MEDS: Enoxaparin Sodium 40 MG/0.4 ML SYRINGE SUBCUT (12:10)
[2023-04-16] MEDS: Azithromycin 500 MG in 0.9 % Sodium Chloride 250 ML 125 MG IV (12:10)
[2023-04-16] MEDS: Furosemide 20 MG TABLET PO (12:11)
--- NOTE | 2023-04-16 12:19 | P.CONPL_ITS ---
History of Present Illness History of Present Illness Consult date: 04/16/23 Chief complaint: SOB Narrative: This is an inpatient pulmonary consultation. 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 Patient states yesterday her breathing gradually got worse to the point last night where she simply ?could not breathe. Reports increased fatigue and that she ?feels terrible.?? Patient also complains of lower back pain that she has been experiencing since laying on the table for radiation treatment.? Has had chronic lower leg swelling has seems about baseline. Cough is productive of yellowish sputum. Of note, patient received radiation treatments at [facility], and started on chemotherapy with Dr. Centeno this past Wednesday04/12/2023.? The patient was taken to the ER. In the year she did have a CT scan of the chest that was personally by me. Chest CT negative for PE, aortic dissection, or aneurysm.? Did not find any significant change in the large right upper lobe mass with likely direct extension to the right mediastinum, but did find abnormal metastatic subcarinal and precarinal lymphadenopathy.? Patchy opacity in the superior segment of right lower lobe similar to previous study.? Other findings include chronic T7 vertebral fracture and new superior endplate deformity of L1 vertebra likely acute.? Also demonstrated heterogeneous left kidney mass. The patient was given a breathing treatment in the ER with epidural and ultimately developed significant laryngeal spasms or stridor. She is still struggling with stridor on the floor. Therefore we did give her racemic epi and she did tolerated. Will start her on budesonide nebs and she will continue 190 high-dose steroids for recurrent disease. She appears to be frail at this time. She does have advanced lung cancer and goals of care should be discussed with the family further. In the meantime will be reasonable to treat her for postobstructive pneumonia and for the upper airway obstruction. Review of Systems Review of Systems: Yes Unobtainable due to mental condition Constitutional: Constitutional: Reports fatigue Eyes: Eyes: Denies change in vision ENT: Reports hearing loss and Denies tongue swelling Cardiovascular: Cardiovascular: Denies chest pain and Reports dyspnea Respiratory: Respiratory: Reports chest congestion, Reports cough, Denies hemoptysis and Reports dyspnea Gastrointestinal: Gastrointestinal: Reports no additional gastrointestinal c omplaints Musculoskeletal: Musculoskeletal: Reports myalgias Endocrine: Endocrine: Reports fatigue Hematologic/Lymphatic: Hematologic/Lymphatic: Denies easy bleeding Allergic/Immunologic: Allergic/Immunologic: Denies tongue swelling [facility] Past Medical History Medical History Basal cell carcinoma Port-A-Cath in place (~02/03/23) Family History Family History Sister Thyroid cancer Breast cancer Kidney stone Father Rectal cancer Surgical History Surgical History History of tonsillectomy S/P pulmonary artery branches stent placement (~2022) [place] teeth extracted Social History Social History Household Members: Children Housing: House Do you presently have visiting nurse or other home services: No Alcohol intake: never Patient Tobacco Use Status: Former Tobacco user Tobacco use type: Cigarette service: No Current occupational status: retired [employer] Allergies Allergy/AdvReac Type Severity Reaction Status Date / Time meperidine [From Demerol] Allergy Unknown Unknown Verified 02/16/23 13:10 Active Medications: Current Medications Acetaminophen (Acetaminophen 325 Mg Tablet) 650 mg PO Q6H PRN PRN Reason: Pain, Mild (Pain Scale 1-3) Albuterol Sulfate (Albuterol Sulfate (0.083%) 2.5 Mg/3 Ml Vial.Neb) 2.5 mg INHALE Q4H PRN PRN Reason: wheezing Docusate Sodium (Docusate Sodium 100 Mg Capsule) 100 mg PO DAILY PRN PRN Reason: Constipation Enoxaparin Sodium (Enoxaparin Sodium 40 Mg/0.4 Ml Syringe) 40 mg SUBCUT Q24H [facility]QUEL Last Admin: 04/16/23 12:10 Dose: 40 mg Epinephrine (Racepinephrine Hcl 0.5 Ml Vial.Neb) 0.5 ml INHALE Q4H PRN PRN Reason: Stridors Folic Acid (Folic Acid 1 Mg Tablet) 1 mg PO BEDTIME RAQUEL Last Admin: 04/15/23 20:57 Dose: Not Given Furosemide (Furosemide 20 Mg Tablet) 20 mg PO DAILY [facility]; Protocol Last Admin: 04/16/23 12:11 Dose: 20 mg Guaifenesin/Dextromethorphan (Guaifenesin Dm 200/20/10 Ml 10 Ml Syrup) 10 ml PO Q4H PRN PRN Reason: Congestion Azithromycin 500 mg/ Sodium (Chloride) 250 mls @ 125 mls/hr IV Q24H [facility] Last Admin: 04/16/23 12:10 Dose: 125 mls/hr Piperacillin Sod/Tazobactam (Sod 3.375 gm/ Sodium Chloride) 50 mls @ 100 mls/hr IV Q6H [facility] Last Infusion: 04/16/23 11:30 Dose: Infused Methylprednisolone Sodium Succinate (Methylprednisolone Sod Succ 40 Mg/Ml Vial) 40 mg IVPUSH Q12H [facility] Last Admin: 04/16/23 06:22 Dose: 40 mg Metoprolol Succinate (Metoprolol Succinate Er 50 Mg Tab.Er.24h) 50 mg PO BEDTIME [facility]; Protocol Last Admin: 04/15/23 20:57 Dose: Not Given Multivitamins/Vitamin C (Multivitamin Tablet) 1 tab PO DAILY [facility] Last Admin: 04/16/23 12:14 Dose: Not Given Omeprazole (Omeprazole 20 Mg Capsule.Dr) 20 mg PO DAILY@0630 [facility] Last Admin: 04/16/23 06:22 Dose: Not Given Ondansetron HCl (Ondansetron Hcl 4 Mg/2 Ml Vial) 4 mg IVPUSH Q8H PRN PRN Reason: Nausea and Vomiting Oxycodone HCl (Oxycodone Hcl Immed Release 5 Mg Tablet) 5 mg PO Q8H PRN PRN Reason: Pain, Moderate(Pain Scale 4-6) Last Admin: 04/15/23 16:45 Dose: 5 mg Sodium Chloride (0.9 % Sodium Chloride Flush 3 Ml Syringe) 3 ml IVFLUSH QSHIFT [facility] Last Admin: 04/16/23 10:49 Dose: 3 ml Sodium Chloride (Sodium Chloride 3 % Inhalation 15 Ml Vial.Neb) 4 ml INHALE TID PRN PRN Reason: sputum production Home Medications Medication Instructions Recorded Confirmed Last Taken Type albuterol sulfate 2.5 mg/3 mL 2.5 mg inhalation Q6H PRN wheezing 03/08/23 04/15/23 Unknown History (0.083 %) solution for nebulization folic acid 1 mg tablet 1 mg PO BEDTIME 03/08/23 04/15/23 04/14/23 History metoprolol succinate 50 mg 50 mg PO BEDTIME 03/08/23 04/15/23 04/14/23 History tablet,extended release 24 hr omeprazole 20 mg capsule,delayed 20 mg PO DAILY@0630 03/08/23 04/15/23 04/14/23 History release acetaminophen 325 mg tablet 650 mg PO Q6H PRN Pain 04/15/23 04/15/23 Unknown History (Tylenol) dexamethasone 4 mg tablet 4 mg PO ONCE 04/15/23 04/15/23 04/14/23 History dextromethorphan-guaifenesin 10 10 ml PO Q4H PRN Congestion 04/15/23 04/15/23 Unknown History mg-200 mg/5 mL oral liquid furosemide 20 mg tablet (Lasix) 20 mg PO DAILY 04/15/23 04/15/23 04/14/23 History multivitamin 1 tab PO DAILY 04/15/23 04/15/23 04/14/23 History sodium chloride 3 % for 4 ml inhalation TID PRN sputum 04/15/23 04/15/23 Unknown History nebulization production Physical Exam Vital Signs: Vital Signs: Last Vital Signs Temp 97.1 F 04/16/23 07:42 Pulse 105 H 04/16/23 09:42 Resp 20 04/16/23 09:42 BP 164/76 H 04/16/23 08:13 Pulse Ox 95 04/16/23 08:13 O2 Del Method Nasal Cannula 04/16/23 08:00 O2 Flow Rate 3 04/16/23 07:42 BMI result Body Mass Index 22.6 Const: General: in distress mild and respiratory, ill appearing and tired appearing HEENT: Head: Yes normocephalic Neck: Neck: Yes supple Chest: Chest palpation & inspection: normal inspection of the chest Resp: Effort & Inspection: stridor and tachypneic Auscultation: diminished lung sounds Cardio: Heart sounds: S1 normal heart sound present and S2 normal heart sound present GI: Palpation (GI): Soft to palpation Skin: General skin exam: no rashes or lesions noted Extrem: General: No clubbing Results Laboratory Findings 04/16/23 05:56 08/25/23 05:56 Abnormal lab findings: Abnormal Labs 04/15/23 04/15/23 04/15/23 06:52 06:52 06:52 WBC 41.4 H* RBC 4.06 L Hgb Hct RDW 17.7 H Neutrophils % (Manual) 93 H Band Neutrophils % 7 H Abs Neuts (Manual) 41.4 H VBG HCO3 Carbon Dioxide BUN 32 H POC Glucose Lactic Acid AST 32 H ALT 58 H Alkaline Phosphatase 181 H Troponin I High Sens 17.8 H D Total Protein 5.6 L Albumin 3.0 L 04/15/23 04/15/23 04/15/23 06:53 07:00 17:33 WBC RBC Hgb Hct RDW Neutrophils % (Manual) Band Neutrophils % Abs Neuts (Manual) VBG HCO3 33 H Carbon Dioxide BUN POC Glucose 119 H Lactic Acid 2.6 H* AST ALT Alkaline Phosphatase Troponin I High Sens Total Protein Albumin 04/15/23 04/16/23 04/16/23 23:29 05:56 05:56 WBC 32.7 H* RBC 3.69 L Hgb 11.4 L Hct 35.2 L RDW 17.4 H Neutrophils % (Manual) Band Neutrophils % Abs Neuts (Manual) VBG HCO3 Carbon Dioxide 30 H BUN 29 H 28 H POC Glucose Lactic Acid AST ALT Alkaline Phosphatase Troponin I High Sens Total Protein Albumin Microbiology: Microbiology 04/15/23 06:52 Blood - Venous Blood Culture - Preliminary No growth after 24 hours. 04/15/23 06:53 Blood - Venous Blood Culture - Preliminary No growth after 24 hours. Assessment and Plan (1) Non-small cell lung cancer: Status: Acute (2) Stridor: Status: Acute (3) Acute exacerbation of chronic obstructive airways disease: Status: Acute (4) Respiratory failure: Status: Acute Plan Raecimic epi neb x 1 start budesonide nebs BID Increase solumedrol continue abx regimen Goals of care need to be discussed as the patient is in a guarded condition and may worsen quickly. She carries a very poor prognosis and appears to be getting tired. Time Spent With Patient Time: Total time managing care of this patient today ____ minutes. Procedures Date of Service Date of Service: 04/16/23
[2023-04-16] MEDS: guaiFENesin DM 200/20/10 ML 10 ML SYRUP PO ×3 (12:43→23:22)
[2023-04-16] MEDS: Metoprolol Succinate ER 50 MG TAB.ER.24H PO ×2 (13:23→21:31)
--- NOTE | 2023-04-16 13:26 | PM.HEMONCPN ---
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 Previously measured 3.8 x 2.7 cm. Lymphangitic spread of tumor noted, extensive confluent mediastinal adenopathy contiguous with right hilar mass, 1.5 cm left adrenal nodule and a 1.9 cm hypodense lesion in the left upper pole of kidney. On 11/11/2022 patient had core needle biopsy of left renal mass which was reported as renal cell carcinoma, clear cell type. 01/14/2023 brain MRI ([facility]) showed multiple intracranial enhancing lesions present within left precentral gyrus, right precentral gyrus, right frontal, left cerebellum and right temporal lobe. Compatible with metastatic foci, there was associated vasogenic edema and swelling of left precentral gyrus. Interval History Interval history: Patient is feeling better today. She is able to sit up and talk in full sentences. She does not feel as tight, she was able to cough up some thick secretions and feels better. She denies fever or chills. No headache or dizziness. Review of Systems - Constitutional Reports as per HPI, Reports fatigue - Neurologic Denies headache(s), Reports weakness PMFSH Medical History: Medical History (Last Reviewed 04/16/23 @ 08:15 by Kylie Laws PT) Basal cell carcinoma Port-A-Cath in place Onset Date: ~02/03/23 Family History: Family History (Last Reviewed 04/15/23 @ 12:38 by VIRIDIANA Mcgregor) Sister Thyroid cancer Breast cancer Kidney stone Father Rectal cancer Surgical History: Surgical History (Last Reviewed 04/16/23 @ 08:15 by Kylie Laws PT) History of tonsillectomy S/P pulmonary artery branches stent placement Onset Date: ~2022 [place] teeth extracted Social History: Social History (Last Reviewed 04/15/23 @ 12:38 by VIRIDIANA Mcgregor) Living Situation History: Household Members: Children Housing: House Do you presently have visiting nurse or other home services: No Tobacco History: Patient Tobacco Use Status: Former Tobacco user Tobacco use type: Cigarette Occupation Assessmet: service: No Current occupational status: retired Home Medications and Allergies Current Medications: Current Medications Acetaminophen (Acetaminophen 325 Mg Tablet) 650 mg PO Q6H PRN PRN Reason: Pain, Mild (Pain Scale 1-3) Albuterol Sulfate (Albuterol Sulfate (0.083%) 2.5 Mg/3 Ml Vial.Neb) 2.5 mg INHALE Q4H PRN PRN Reason: wheezing Budesonide (Budesonide 0.5 Mg/2 Ml Ampul.Neb) 0.5 mg INHALE RBID RAQUEL Docusate Sodium (Docusate Sodium 100 Mg Capsule) 100 mg PO DAILY PRN PRN Reason: Constipation Enoxaparin Sodium (Enoxaparin Sodium 40 Mg/0.4 Ml Syringe) 40 mg SUBCUT Q24H [facility] Last Admin: 04/16/23 12:10 Dose: 40 mg Epinephrine (Racepinephrine Hcl 0.5 Ml Vial.Neb) 0.5 ml INHALE Q4H PRN PRN Reason: Stridors Folic Acid (Folic Acid 1 Mg Tablet) 1 mg PO BEDTIME RAQUEL Last Admin: 04/15/23 20:57 Dose: Not Given Furosemide (Furosemide 20 Mg Tablet) 20 mg PO DAILY RAQUEL; Protocol Last Admin: 04/16/23 12:11 Dose: 20 mg Guaifenesin/Dextromethorphan (Guaifenesin Dm 200/20/10 Ml 10 Ml Syrup) 10 ml PO Q4H PRN PRN Reason: Congestion Last Admin: 04/16/23 12:43 Dose: 10 ml Azithromycin 500 mg/ Sodium (Chloride) 250 mls @ 125 mls/hr IV Q24H [facility] Last Admin: 04/16/23 12:10 Dose: 125 mls/hr Piperacillin Sod/Tazobactam (Sod 3.375 gm/ Sodium Chloride) 50 mls @ 100 mls/hr IV Q6H [facility] Last Infusion: 04/16/23 11:30 Dose: Infused Methylprednisolone Sodium Succinate (Methylprednisolone Sod Succ 40 Mg/Ml Vial) 40 mg IVPUSH Q12H [facility] Last Admin: 04/16/23 06:22 Dose: 40 mg Metoprolol Succinate (Metoprolol Succinate Er 50 Mg Tab.Er.24h) 50 mg PO BEDTIME RAQUEL; Protocol Last Admin: 04/15/23 20:57 Dose: Not Given Multivitamins/Vitamin C (Multivitamin Tablet) 1 tab PO DAILY [facility] Last Admin: 04/16/23 12:14 Dose: Not Given Omeprazole (Omeprazole 20 Mg Capsule.) 20 mg PO DAILY@0630 [facility] Last Admin: 04/16/23 06:22 Dose: Not Given Ondansetron HCl (Ondansetron Hcl 4 Mg/2 Ml Vial) 4 mg IVPUSH Q8H PRN PRN Reason: Nausea and Vomiting Oxycodone HCl (Oxycodone Hcl Immed Release 5 Mg Tablet) 5 mg PO Q8H PRN PRN Reason: Pain, Moderate(Pain Scale 4-6) Last Admin: 04/15/23 16:45 Dose: 5 mg Sodium Chloride (0.9 % Sodium Chloride Flush 3 Ml Syringe) [facility] Admin: 04/16/23 10:49 Dose: 3 ml Sodium Chloride (Sodium Chloride 3 % Inhalation 15 Ml Vial.Neb) 4 ml INHALE TID PRN PRN Reason: sputum production Home Medications Medication Instructions Recorded Confirmed Type albuterol sulfate 2.5 mg/3 mL 2.5 mg inhalation Q6H PRN wheezing 03/08/23 04/15/23 History (0.083 %) solution for nebulization folic acid 1 mg tablet 1 mg PO BEDTIME 03/08/23 04/15/23 History metoprolol succinate 50 mg 50 mg PO BEDTIME 03/08/23 04/15/23 History tablet,extended release 24 hr omeprazole 20 mg capsule,delayed 20 mg PO DAILY@0630 03/08/23 04/15/23 History release acetaminophen 325 mg tablet 650 mg PO Q6H PRN Pain 04/15/23 04/15/23 History (Tylenol) dexamethasone 4 mg tablet 4 mg PO ONCE 04/15/23 04/15/23 History dextromethorphan-guaifenesin 10 10 ml PO Q4H PRN Congestion 04/15/23 04/15/23 History mg-200 mg/5 mL oral liquid furosemide 20 mg tablet (Lasix) 20 mg PO DAILY 04/15/23 04/15/23 History multivitamin 1 tab PO DAILY 04/15/23 04/15/23 History sodium chloride 3 % for 4 ml inhalation TID PRN sputum 04/15/23 04/15/23 History nebulization production Allergies Allergy/AdvReac Type Severity Reaction Status Date / Time meperidine [From Demerol] Allergy Unknown Unknown Verified 02/16/23 13:10 Exam Vital signs: Vital Signs Temp 97.1 F 04/16/23 12:38 Pulse 98 04/16/23 12:38 Resp 20 04/16/23 12:38 BP 171/74 H 04/16/23 12:38 Pulse Ox 97 04/16/23 12:38 O2 Del Method Nasal Cannula 04/16/23 12:38 O2 Flow Rate 3 04/16/23 12:38 Intake & Output 04/15/23 04/16/23 04/16/23 18:59 06:59 18:59 Intake Total 850 / 950 100 / 950 50 / 50 Output Total 0 / 0 Balance 850 / 950 100 / 950 50 / 50 Intake: Intake, Oral Amount 0 / 0 Intake, IV Amount 850 / 950 100 / 950 50 / 50 0.9 % Sodium Chloride 500 ml @ 500 / 500 500 mls/hr IV .Q1H [facility] Rx#: [id number] Azithromycin 500 mg In 0.9 % 250 / 250 Sodium Chloride 250 ml @ 125 mls/hr IV ONCE ONE Rx#: [id number] Piperacillin Sodium/Tazobactam 100 / 100 50 / 50 3.375 gm In 0.9 % Sodium Chloride 50 ml @ 100 mls/hr IV Q6H [facility] Rx#:[id number] cefEPime HCl 2 gm In 0.9 % 100 / 100 Sodium Chloride 50 ml @ 100 mls /hr IV Q8H [facility] Rx#:[id number] Output: Output, Stool Amount 0 / 0 Other: NPO Yes Number of Unmeasured Voids 1 Last Bowel Movement 04/13/23 Weight 65.4 kg 65.4 kg Weight in Grams 21764 Weight 65.4 kg BMI result Body Mass Index 22.6 - Constitutional Present: mild distress, chronically ill appearing, disheveled - Routine HEENT Exam Head: Present: normal inspection - Routine Respiratory Exam Present: accessory muscle use, prolonged expiratory phase, wheezes - Routine Cardiovascular Exam Cardiovascular: Present: S1, S2, tachycardia - Routine Abdominal Exam Present: soft - Routine Extremities Exam Absent: calf tenderness - Routine Skin Exam Present: intact. Absent: cyanosis Data - Labs CBC & Chem 7: 04/16/23 05:56 04/16/23 05:56 Labs: 04/15/23 ECG 12 lead EKG Stat ECG 12 lead EKG Stat XR chest 1V Stat 04/15/23 06:37 ECG 12 lead EKG Stat EKG Documentation DIRECTED Albuterol Sulfate [Ventolin] 2.5 mg Albuterol/Iprat 2.5/0.5MG 3 ML [Duoneb] 3 ml INHALE ONCE 04/15/23 06:38 XR chest 1V Stat 04/15/23 06:45 Venous Blood Gas Stat 04/15/23 06:51 methylPREDNISolone Sod Succ [SOLU-MedroL] 60 mg IVPUSH ONCE ONE 04/15/23 06:52 B Type Natriuretic Peptide Stat Basic Metabolic Panel Stat Complete Blood Count Man Dif Stat D Dimer High Sensitivity Stat Lipase Stat Liver Panel Stat Magnesium Stat Procalcitonin Stat Resp Pathogen Panel - C Stat Troponin-I High Sensitivity Stat 04/15/23 06:53 Lactic Acid Stat 04/15/23 07:00 Venous Blood Gases - POC Routine 04/15/23 07:10 cefEPime HCl [Maxipime] 2 gm 0.9 % Sodium Chloride [Ns] 50 ml IV ONCE 04/15/23 07:13 CT angio chest PE protocol Stat oxyCODONE HCl Immed Release [Roxicodone] 5 mg PO ONCE ONE 04/15/23 07:23 cefEPime HCl [Maxipime] 2 gm IV .STK-MED ONE 04/15/23 07:45 0.9 % Sodium Chloride [Ns] 500 ml IV 500 mls/hr 04/15/23 08:42 iohexoL 350 MG/ML [Omnipaque 350 MG/ML] 65 ml IV ONCE ONE 04/15/23 09:35 MRSA Nasal Screen Stat 04/15/23 09:43 Troponin-I High Sensitivity Stat ~Lactic Acid-LAB USE ONLY Stat 04/15/23 09:44 Azithromycin [Zithromax] 500 mg 0.9 % Sodium Chloride [Ns] 250 ml IV ONCE 04/15/23 10:07 Azithromycin [Zithromax] 500 mg IV .STK-MED ONE 04/15/23 12:18 Regular Diet 04/15/23 12:31 Add Laboratory Test Stat 04/15/23 15:16 cefEPime HCl [Maxipime] 2 gm IV .STK-MED ONE 04/15/23 16:00 Albuterol/Iprat 2.5/0.5MG 3 ML [Duoneb] 3 ml INHALE RQ4H WHILE AWAKE cefEPime HCl [Maxipime] 2 gm 0.9 % Sodium Chloride [Ns] 50 ml IV Q8H 04/15/23 17:33 Glucose, Whole Blood Routine 04/15/23 17:35 EKG Documentation DIRECTED 04/15/23 17:36 NPO Pending Swallow Eval Diet 04/15/23 17:43 Transfer Order Routine 04/15/23 18:00 levalbuterol HCL [Xopenex] 1.25 mg INHALE Q4H 04/15/23 20:46 Piperacillin Sodium/Tazobactam [Zosyn] 3.375 gm IV .STK-MED ONE 04/15/23 23:04 EKG Documentation DIRECTED 04/15/23 23:21 Morphine Sulfate 4 mg IVPUSH ONCE ONE 04/15/23 23:29 BMP [Basic Metabolic Panel] Stat Magnesium Stat 04/16/23 03:41 Piperacillin Sodium/Tazobactam [Zosyn] 3.375 gm IV .STK-MED ONE 04/16/23 05:56 Basic Metabolic Panel Routine Complete Blood Count no Diff Routine 04/16/23 09:28 Racepinephrine HCL [Micronefrin] 0.5 ml INHALE ONCE ONE 04/16/23 10:39 Piperacillin Sodium/Tazobactam [Zosyn] 3.375 gm IV .STK-MED ONE 04/16/23 12:04 Azithromycin [Zithromax] 500 mg IV .STK-MED ONE 04/16/23 12:53 Metoprolol Succinate ER [Toprol XL] 50 mg PO ONCE ONE Laboratory Last Values WBC 32.7 X10*3/uL (4.8-10.8) H* 04/16/23 05:56 RBC 3.69 X10*6/uL (4.20-5.50) L 04/16/23 05:56 Hgb 11.4 g/dl (12.0-16.0) L 04/16/23 05:56 Hct 35.2 % (37.0-47.0) L 04/16/23 05:56 MCV 95.4 fL (80.0-98.0) 04/16/23 05:56 MCH 30.9 pg (27.0-33.0) 04/16/23 05:56 MCHC 32.4 g/dl (31.0-35.0) 04/16/23 05:56 RDW 17.4 % (11.0-16.0) H 04/16/23 05:56 Plt Count 238 X10*3/uL (160-400) 04/16/23 05:56 MPV 10.6 fL (9.4-12.3) 04/16/23 05:56 Immature Gran % (Auto) Cancelled 04/15/23 06:52 Neut % (Auto) Cancelled 04/15/23 06:52 Lymph % (Auto) Cancelled 04/15/23 06:52 [place] % (Auto) Cancelled 04/15/23 06:52 Eos % (Auto) Cancelled 04/15/23 06:52 Baso % (Auto) Cancelled 04/15/23 06:52 Lymph # (Auto) Cancelled 04/15/23 06:52 [place] # (Auto) Cancelled 04/15/23 06:52 Eos # (Auto) Cancelled 04/15/23 06:52 Baso # (Auto) Cancelled 04/15/23 06:52 Abs Immat Gran (auto) Cancelled 04/15/23 06:52 Absolute Neuts (auto) Cancelled 04/15/23 06:52 Absolute Nucleated RBC 0.000 X10*3/uL (0.0-0.012) 04/16/23 05:56 Nucleated RBC % (auto) 0.0 /100WBC (0.0-0.2) 04/16/23 05:56 Neutrophils % (Manual) 93 % (45-73) H 04/15/23 06:52 Band Neutrophils % 7 % (3-5) H 04/15/23 06:52 Abs Neuts (Manual) 41.4 X10*3/uL (2.0-8.3) H 04/15/23 06:52 Toxic Vacuolation PRESENT 04/15/23 06:52 Platelet Estimate NORMAL (NORMAL) 04/15/23 06:52 Plt Morphology Comment NORMAL 04/15/23 06:52 RBC Morphology NOTED 04/15/23 06:52 [place] Cells 1+ (0-2) /OIF 04/15/23 06:52 D-Dimer High Sensitivty 1181 NG/ML 04/15/23 06:52 VBG pH 7.43 (7.32-7.43) 04/15/23 07:00 VBG pCO2 48 mmHg 04/15/23 07:00 VBG pO2 37 mmHg 04/15/23 07:00 VBG HCO3 33 mmol/L (22-26) H 04/15/23 07:00 VBG O2 Saturation 52.0 % 04/15/23 07:00 VBG Base Excess 7.7 mmol/L 04/15/23 07:00 Sodium 138 mmol/L (135-145) 04/16/23 05:56 Potassium 3.8 mmol/L (3.3-5.1) 04/16/23 05:56 Chloride 99 mmol/L (96-108) 04/16/23 05:56 Carbon Dioxide 30 mmol/L (22-29) H 04/16/23 05:56 Anion Gap 13 (12-20) 04/16/23 05:56 BUN 28 mg/dL (9-16) H 04/16/23 05:56 Creatinine 0.57 mg/dL (0.5-1.4) 04/16/23 05:56 Estim Creat Clear Calc 72.7 04/16/23 05:56 Estimated GFR > 60 04/16/23 05:56 POC Glucose 119 mg/dL (60-115) H 04/15/23 17:33 Random Glucose 81 mg/dL (60-115) 04/16/23 05:56 Lactic Acid 2.6 mmol/L (0.5-2.0) H* 04/15/23 06:53 Lactic Acid F/U @ 2Hr 1.1 mmol/L (0.5-2.0) 04/15/23 09:43 Calcium 8.7 mg/dL (8.4-10.2) 04/16/23 05:56 Magnesium 1.8 mg/dL (1.6-2.6) 04/15/23 23:29 Total Bilirubin 0.9 mg/dL (0.0-1.0) 04/15/23 06:52 Direct Bilirubin 0.4 mg/dL (0.0-0.5) 04/15/23 06:52 AST 32 U/L (5-31) H 04/15/23 06:52 ALT 58 U/L (0-31) H 04/15/23 06:52 Alkaline Phosphatase 181 U/L (39-117) H 04/15/23 06:52 Troponin I High Sens 16.2 ng/L (<3.5-17.0) 04/15/23 09:43 B-Natriuretic Peptide 78 pg/mL (<100) 04/15/23 06:52 Total Protein 5.6 g/dL (6.5-8.0) L 04/15/23 06:52 Albumin 3.0 g/dL (3.5-5.0) L 04/15/23 06:52 Lipase 14 U/L (8-78) 04/15/23 06:52 Procalcitonin 6.08 ng/mL 04/15/23 06:52 Nasal Screen MRSA (PCR) NEGATIVE (Negative) 04/15/23 09:35 Nasal S. aureus Screen NEGATIVE (Negative) 04/15/23 09:35 Nasal MRSA/S.aureus Interp SEE NOTE 04/15/23 09:35 Respiratory Panel Velásquez See Note 04/15/23 06:52 Adenovirus (Rapid PCR) Not Detected (Not Detect.) 04/15/23 06:52 B.pert (TEM-PCR) Not Detected (Not Detect.) 04/15/23 06:52 B.parapertussis DNA PCR Not Detected (Not Detect.) 04/15/23 06:52 C. pneumoniae DNA (PCR) Not Detected (Not Detect.) 04/15/23 06:52 Coronavirus OC43 (PCR) Not Detected (Not Detect.) 04/15/23 06:52 Coronavirus HKU1 (PCR) Not Detected (Not Detect.) 04/15/23 06:52 Coronavirus 229E (PCR) Not Detected (Not Detect.) 04/15/23 06:52 Coronavirus NL63 (PCR) Not Detected (Not Detect.) 04/15/23 06:52 Human Metapneumovir PCR Not Detected (Not Detect.) 04/15/23 06:52 Influenza A (RT-PCR) Not Detected (Not Detect.) 04/15/23 06:52 Influenza B (RT-PCR) Not Detected (Not Detect.) 04/15/23 06:52 M. pneumoniae (PCR) Not Detected (Not Detect.) 04/15/23 06:52 Parainfluenza 1 (PCR) Not Detected (Not Detect.) 04/15/23 06:52 Parainfluenza 2 (PCR) Not Detected (Not Detect.) 04/15/23 06:52 Parainfluenza 3 (PCR) Not Detected (Not Detect.) 04/15/23 06:52 Parainfluenza 4 (PCR) Not Detected (Not Detect.) 04/15/23 06:52 RSV (PCR) Not Detected (Not Detect.) 04/15/23 06:52 Entero/Rhino (PCR) Not Detected (Not Detect.) 04/15/23 06:52 SARS-CoV-2 RNA (RT-PCR) Not Detected (Not Detect.) 04/15/23 06:52 - Imaging Radiologist's impression: ITS Impressions Chest X-Ray 04/15/23 06:43 IMPRESSION: Right perihilar and upper lung opacity consistent with known tumor. Developing process the left at the left base consistent with atelectasis/infiltrate Chest CTA 04/15/23 08:40 IMPRESSION: No evidence of PE. No evidence aortic dissection or aneurysm. No significant change in the large right upper lobe mass with likely direct extension to the right mediastinum. Abnormal metastatic subcarinal and precarinal lymphadenopathy. Left adrenal lipoma. Likely chronic T7 vertebral fracture. There is a new superior endplate deformity L1 vertebra likely acute. Heterogeneous left kidney mass. Recommend further evaluation with MRI. VTE: negative Chest X-Ray 04/15/23 18:17 IMPRESSION: Right perihilar mass as seen on recent CT and on prior x-ray. Faint right lung base opacity possibly early infiltrate or atelectasis. Increased markings at the left base. Assessment and Plan Patient Active problem list reviewed?: Yes (1) Non-small cell lung cancer Status: Acute Assessment and plan: 1. This is a 82-year-old woman with metastatic non-small cell lung cancer, adenocarcinoma with brain metastasis diagnosed in December 2022 at [facility]. Biopsy/excision of right endobronchial mass performed at [facility] on 12/16/[address] Flower at [facility] revealed adenocarcinoma. 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 She was started on dexamethasone and referred back to Radiation Oncology at [facility] for radiation therapy. She received stereotactic radiation therapy from 03/23/23 to 04/06/23. She received 1st dose of palliative chemo immunotherapy with carboplatin, pemetrexed and pembrolizumab on 04/12/23. She did receive Neulasta which can explain her leukocytosis. She is also on a steroid taper which can be contributing to her leukocytosis. CT angiogram performed today does not show pulmonary embolism or significant change from her large right upper lobe mass as well as adenopathy that was noted on prior imaging from a few days ago. She is eating better. She is on IV antibiotics, steroids and breathing treatments. Overall this is helping. Appreciate hospitalist and Pulmonary input. Thank you. - Time Spent With Patient Time Spent with Patient (in minutes): 10
--- NOTE | 2023-04-16 15:26 | MHC.SL.SWA ---
Addendum entered and electronically signed by Winnie Damon MA, CCC-[employer] 04/16/23 16:03: Dr. Hall to notify [employer] over weekend if MBSS is indicated. Original Note: Speech Pathologist Impression: Risk of aspiration, oropharyngeal dysphagia Risk of Aspiration Due to: Medically Fragile Dysphasia Diet Status: Downgrade solids to NDD3 Liquid Consistency and Strategies for Safe Swallow: Liquid Intake Recommendation: Thin Liquid Intake Strategies: Small Sips No Straws Liquids by Teaspoon Only Solid Food Consistency: Dietary Recommendations: Chopped/Advanced (NDD3) Additional Modifications to Solid Foods: Recommend CHOPPED/ADVANCED (NDD3) solids for ease of mastication, THIN liquids, pills CRUSHED in PUREE. Pt is deemed to be at increased risk of aspiration, thus is recommended STRICT precautions: -oral care before first meal and after each subsequent meal -liquids via teaspoon or controlled cup -NO STRAWS -individual sips/bites -very small sips/bites -ensure oral cavity is cleared before taking next bite/sip -upright 90 degree position during PO intake and for at least 30 minutes afterwards Recommend total 1:1 supervision and close monitoring of pt's tolerance of PO. Hold tray if pt is lethargic, respiratory status is compromised, or pt is having increasing difficulty with PO intake. Pt seen by manager internet, who recommended goals of care to be discussed w/ family, as pt is in a guarded condition w/ very poor prognosis. Should further tx be pursued, pt may benefit from MBSS to evaluate extent of dysphagia. [employer] discussed w/ MD. Text notification sent to RN and RD as well. [employer] will continue to follow during hospitalization. Oral Medication Intake: Crushed with Puree Please contact the pharmacy regarding appropriate crushable or liquid drug formulations that are available whenever modified delivery is recommended. Compensatory Strategies and Precautions to be Taken for Safe Swallow: Sitting Upright (90 deg) Double Swallow No Straw Liquids from Cup Liquids from Spoon Small Bites and Sips Rate of Ingestion Change Avoid Specific Foods Supervision While Eating and Drinking for Safe Swallow: Total Supervision (1:1) Foods to Avoid: Hard tough to chew solids; mixed consistencies Swallowing Recommended Treatments: Compens. Strategy Educat. Recommendation for Speech: Inpatient Speech Therapy [employer] Clinican/Clinical Fellow: No Supervisory Statement: I have reviewed and agree with the student/clinical fellow's documentation: N/A Speech Language Pathologist: Winnie Damon M.A., [facility]
[2023-04-16] MEDS: Folic Acid 1 MG TABLET PO (21:31)
--- NOTE | 2023-04-16 22:10 | PM.EVENT ---
Event Note Date of Service: 04/16/23 Event Note: Patient had an episode of heart rate reaching to the 160s. Hemodynamically stable, no acute complaint. Patient received her Toprol-XL just prior to the episode. Her blood pressure stable, will give her Lopressor 5 mg IV push, will obtain EKG. For her nurse telemetry is showing AFib. EKG pending Time Spent With Patient Time: Total time managing care of this patient today ____ minutes.
[2023-04-16] MEDS: Metoprolol Tartrate 5 MG/5 ML VIAL IVPUSH (22:21)
[2023-04-16] MEDS: dilTIAZem HCL 125 MG in 0.9 % Sodium Chloride 100 ML 10 MG IVCONT (23:29)
[2023-04-16] MEDS: Lactated Ringers 1,000 ML 999 ML IV (23:30)
[2023-04-17] VITALS (10 sets, daily range): BP systolic 90–156; BP diastolic 54–83; PULSE 71–151; RESP 17–22; TEMP 36.2–37.1; O2SAT 96–98
[2023-04-17] MEDS: Budesonide 0.5 MG/2 ML AMPUL.NEB INHALE (00:25)
[2023-04-17] MEDS: LORazepam 2 MG/ML VIAL 0.5 MG IVPUSH (00:55)
[2023-04-17 01:46] LABS: B Type Natriuretic Peptide 94 pg/mL (<100)
[2023-04-17] MEDS: Digoxin 0.5 MG/2 ML AMPUL 0.25 MG IVPUSH (02:10)
[2023-04-17] MEDS: guaiFENesin LA 600 MG TAB.ER.12H 1200 MG PO (02:47)
[2023-04-17] MEDS: Piperacillin Sodium/Tazobactam 3.375 GM in 0.9 % Sodium Chloride 50 ML IV ×4 (04:35→23:15)
[2023-04-17] MEDS: methylPREDNISolone Sod Succ 40 MG/ML VIAL IVPUSH ×2 (06:58→18:14)
--- NOTE | 2023-04-17 07:53 | PC.NURSE ---
2134: Pt. received scheduled 2100 Metoprolol 50mg XL, while sitting up at that time, pt. went from NSR to AFib w/ RVR HR 150-170's. Pt. denies pain or worsening SOB, cough at that time. Reported these findings to Dr. Gauthier at 2149. Pt. received Metoprolol 5mg slow IVP at 2220 with no effect on HR. HR remains aifb 140-150's. BP 168/68. 12LD ekg done and sent to Dr. Chavez. Confirmed Afib. Diltiazem drip started at 10mg/hr at 2335 bp 116/73 at that time. HR 156. Pt. received L LR IV bolus . BNP drawn and resulted at 94. 0045 Dilt. drip increased to 15mg/hr for sustained HR 150's. BP was 97/[address] Chavez aware. No change in HR. Pt. received digoxin 0.25 IV push at 0210 and at 0245 pt. converted to NSR 72. Dr. Gauthier notified. Dilt. drip titrated down to 0/hr at 0320-see charting. Pt. also with spells of being unable to breath and not able to produce phlepm. Congested/rhonchorous breath sounds. No notable correlation between talking PO fluids and increased cough/phlemn. Pt. medicated with guaifenensin DM with no relief and then per new order, Mucinex as needed dose with good effect x2hrs. RT was at bedside during pt. diff. breathing spells. A Dr. Gauthier at bedside at 0040 to see pt. Pt. medicated with 0.5mg IV slow push Ativan with good effect per pt. reports.
[2023-04-17 08:43] LABS: Hematocrit 32.1 % (37.0-47.0); Hemoglobin 10.6 g/dl (12.0-16.0); Mean Corpuscular Hemoglobin 31.5 pg (27.0-33.0); Mean Corpuscular Volume 95.5 fL (80.0-98.0); Mean Platelet Volume 10.3 fL (9.4-12.3); NRBC Pct Auto 0.1 /100WBC (0.0-0.2); Platelet Count 185 X10*3/uL (160-400); Red Blood Count 3.36 X10*6/uL (4.20-5.50); Red Cell Distribution Width 17.2 % (11.0-16.0); White Blood Count 26.2 X10*3/uL (4.8-10.8)
[2023-04-17 08:56] LABS: Anion Gap 12 (12-20); Blood Urea Nitrogen 31 mg/dL (9-16); Calcium 8.6 mg/dL (8.4-10.2); Carbon Dioxide 27 mmol/L (22-29); Chloride 102 mmol/L (96-108); Creatinine Clr Calc Pharmacy 78.2; Estimated Glomerular Filt Rate > 60; Glucose Random 87 mg/dL (60-115); Potassium 3.9 mmol/L (3.3-5.1); Sodium 137 mmol/L (135-145)
[2023-04-17] MEDS: Multivitamin TABLET 1 TAB PO (09:01)
[2023-04-17] MEDS: Furosemide 20 MG TABLET PO (09:01)
[2023-04-17] MEDS: 0.9 % Sodium Chloride Flush 3 ML SYRINGE IVFLUSH ×2 (09:02→20:07)
[2023-04-17] MEDS: guaiFENesin DM 200/20/10 ML 10 ML SYRUP PO ×3 (09:17→20:07)
[2023-04-17] MEDS: Metoprolol Succinate ER 25 MG TAB.ER.24H PO (10:50)
--- NOTE | 2023-04-17 11:04 | P.PNIM_ITS ---
Subjective Subjective Date of Service: 04/17/23 Interval History: seen and evaluated this morning Looks better and feels less hypoxic. still requiring O2 supplement though Developed new onset Afib w Rvr overnight, converted back to sinus this morning Tolerating diet Feels weak but no fever or chills Review of Systems Review of Systems: Yes all other systems are reviewed and are negative Physical Exam Vital Signs: Vital Signs: Last Vital Signs Temp 97.2 F 04/17/23 08:00 Pulse 78 04/17/23 08:00 Resp 22 H 04/17/23 08:00 BP 156/69 H 04/17/23 10:45 Pulse Ox 96 04/17/23 08:00 O2 Del Method Nasal Cannula 04/17/23 08:00 O2 Flow Rate 2 04/17/23 08:00 BMI result Body Mass Index 22.6 Const: Other: Constitutional : Awake, interactive, in mild respiratory distress Neck : Normal inspection, Supple Cardiovascular : RRR, no JVP, no lower extremity edema Respiratory : decreased bilateral air entry, basal bilateral crackles, scattered expiratory wheezes, on O2 supplement Gastrointestinal: soft, lax, Normal bowel sounds, Non tender Skin : Warm, Dry Neurological : Alert & oriented x3, No focal deficit Objective Data Active Medications Acetaminophen (Acetaminophen 325 Mg Tablet) 650 mg PO Q6H PRN PRN Reason: Pain, Mild (Pain Scale 1-3) Albuterol Sulfate (Albuterol Sulfate (0.083%) 2.5 Mg/3 Ml Vial.Neb) 2.5 mg INHALE Q4H PRN PRN Reason: wheezing Docusate Sodium (Docusate Sodium 100 Mg Capsule) 100 mg PO DAILY PRN PRN Reason: Constipation Enoxaparin Sodium (Enoxaparin Sodium 40 Mg/0.4 Ml Syringe) 40 mg SUBCUT Q24H [facility] Last Admin: 04/16/23 12:10 Dose: 40 mg Documented By: EDINSON Epinephrine (Racepinephrine Hcl 0.5 Ml Vial.Neb) 0.5 ml INHALE Q4H PRN PRN Reason: Stridors Folic Acid (Folic Acid 1 Mg Tablet) 1 mg PO BEDTIME [facility] Last Admin: 04/16/23 21:31 Dose: 1 mg Documented By: DARA Furosemide (Furosemide 20 Mg Tablet) 20 mg PO DAILY [facility]; Protocol Last Admin: 04/17/23 09:01 Dose: 20 mg Documented By: DEJON Guaifenesin (Guaifenesin La 600 Mg Tab.Er.12h) 1,200 mg PO BID PRN PRN Reason: cough Last Admin: 04/17/23 02:47 Dose: 1,200 mg Documented By: DARA Guaifenesin/Dextromethorphan (Guaifenesin Dm 200/20/10 Ml 10 Ml Syrup) 10 ml PO Q4H PRN PRN Reason: Congestion Last Admin: 04/17/23 09:17 Dose: 10 ml Documented By: DEJON Azithromycin 500 mg/ Sodium (Chloride) 250 mls @ 125 mls/hr IV Q24H [facility] Last Infusion: 04/16/23 14:20 Dose: 0 mls/hr Documented By: EDINSON Piperacillin Sod/Tazobactam (Sod 3.375 gm/ Sodium Chloride) 50 mls @ 100 mls/hr IV Q6H [facility] Last Infusion: 04/17/23 09:43 Dose: 0 mls/hr Documented By: DEJON Methylprednisolone Sodium Succinate (Methylprednisolone Sod Succ 40 Mg/Ml Vial) 40 mg IVPUSH Q12H [facility] Last Admin: 04/17/23 06:58 Dose: 40 mg Documented By: DARA Metoprolol Succinate (Metoprolol Succinate Er 50 Mg Tab.Er.24h) 50 mg PO BEDTIME [facility]; Protocol Last Admin: 04/16/23 21:31 Dose: 50 mg Documented By: DARA Multivitamins/Vitamin C (Multivitamin Tablet) 1 tab PO DAILY [facility] Last Admin: 04/17/23 09:01 Dose: 1 tab Documented By: DEJON Omeprazole (Omeprazole 20 Mg Capsule.Dr) 20 mg PO DAILY@0630 [facility] Last Admin: 04/17/23 06:22 Dose: Not Given Documented By: DARA Non-Admin Reason: pt. sleeping, has not slept d/t cough/afib Ondansetron HCl (Ondansetron Hcl 4 Mg/2 Ml Vial) 4 mg IVPUSH Q8H PRN PRN Reason: Nausea and Vomiting Oxycodone HCl (Oxycodone Hcl Immed Release 5 Mg Tablet) 5 mg PO Q8H PRN PRN Reason: Pain, Moderate(Pain Scale 4-6) Last Admin: 04/15/23 16:45 Dose: 5 mg Documented By: BEVERLY Sodium Chloride (0.9 % Sodium Chloride Flush 3 Ml Syringe) 3 ml IVFLUSH QSHIFT [facility] Last Admin: 04/17/23 09:02 Dose: 3 ml Documented By: DEJON Sodium Chloride (Sodium Chloride 3 % Inhalation 15 Ml Vial.Neb) 4 ml INHALE TID PRN PRN Reason: sputum production Labs 04/17/23 08:14 04/17/23 08:14 Labs: Laboratory Results - last 24 hr 04/17/23 04/17/23 04/17/23 01:16 08:14 08:14 MCV 95.5 MCH 31.5 MCHC 33.0 RDW 17.2 H Plt Count 185 MPV 10.3 Absolute Nucleated RBC 0.020 H Nucleated RBC % (auto) 0.1 Anion Gap 12 Estim Creat Clear Calc 78.2 Estimated GFR > 60 Random Glucose 87 Calcium 8.6 B-Natriuretic Peptide 94 Microbiology Microbiology Results: Microbiology 04/15/23 06:52 Blood Culture - Preliminary Blood - Venous No growth after 48 hours. 04/15/23 06:53 Blood Culture - Preliminary Blood - Venous No growth after 48 hours. 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 Patient states yesterday her breathing gradually got worse to the point last night where she simply ?could not breathe. Pt will be admitted to the hospital for acute respiratory failure in the setting of metastatic lung cancer, COPD exacerbation and possible pneumonia. Acute respiratory failure 2/2 sepsis with Metastatic lung cancer, COPD exacerbation, pneumonia CTA negative for PE but showing patchy opacity in the superior segment of right lower lobe Continue Solu-Medrol 40mg IV q12 Nebulizers PRN Continue azithromycin and Zosyn Wean down O2 as tolerated Pulmonology input appreciated New onset Afib w RvR Converted back to sinus on Cardizem drip Check TSH, Mg , ECHO Cardiology consult extra dose Metoprolol XL for now keep on Tele To discuss AC with cardiology and patient as it is likely demand induced from hypoxia and acute illness Swallowing problem [employer] eval rec NDD3 diet, swallowing improving with improving clinical condition Stridor for upper airways narrowing, Treat with epinephrine neb Pulm following [id number] lung cancer with 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, diagnosed 12/2022 Received radiation treatments at [facility], and started on chemotherapy with Dr. Centeno this past Wednesday04/12/2023. Heme/Onc following Leukocytosis WBC trended down to 22k likely d/t Neulasta injection, steroid use Lactic acidosis, resolved Elevated troponin Patient asymptomatic, EKG negative for ST elevations or depressions Most likely type 2 in the setting of demand ischemia HTN Continue metoprolol Chronic lower leg edema Continue home Lasix Full Code DVT Prophylaxis: Lovenox Pt will require a hospitalization overnight for treatment of?acute respiratory failure in the setting of metastatic lung cancer, COPD exacerbation, and pneumonia with IV antibiotics, high-dose IV steroids, and breathing treatments. Time Spent With Patient Time: Total time managing care of this patient today ____ minutes. Quality Stroke Does the patient have a stroke diagnosis?: No VTE Prior VTE?: No VTE Risk Level:: Medical - moderate - high VTE Device Contraindication: Treatment Not Indicated VTE Drug Contraindication: N/A - Med Ordered
[2023-04-17 11:42] LABS: Magnesium 2.1 mg/dL (1.6-2.6)
[2023-04-17 11:57] LABS: Thyroid Stimulating Hormone 0.25 uIU/mL (0.32-4.0)
[2023-04-17] MEDS: Azithromycin 500 MG in 0.9 % Sodium Chloride 250 ML 125 MG IV (12:02)
[2023-04-17] MEDS: Enoxaparin Sodium 40 MG/0.4 ML SYRINGE SUBCUT (12:08)
[2023-04-17] MEDS: Metoprolol Succinate ER 50 MG TAB.ER.24H PO (20:07)
[2023-04-17] MEDS: Folic Acid 1 MG TABLET PO (20:07)
[2023-04-17] MEDS: Acetaminophen 325 MG TABLET 650 MG PO (23:45)
[2023-04-18] MEDS: guaiFENesin DM 200/20/10 ML 10 ML SYRUP PO ×4 (00:10→17:10)
[2023-04-18 00:22] VITALS: BP 165/74; PULSE 86; RESP 20; TEMP 36.4; O2SAT 95
[2023-04-18 04:00] VITALS: BP 171/73; PULSE 82; RESP 20; TEMP 36.3; O2SAT 95
[2023-04-18] MEDS: Piperacillin Sodium/Tazobactam 3.375 GM in 0.9 % Sodium Chloride 50 ML IV ×4 (05:08→22:08)
[2023-04-18] MEDS: Omeprazole 20 MG CAPSULE.DR PO (05:08)
[2023-04-18 06:07] LABS: OBS Int Ctl Valid YES; OBS1 POSITIVE (NEGATIVE)
[2023-04-18 06:45] LABS: Anion Gap 10 (12-20); Blood Urea Nitrogen 31 mg/dL (9-16); Calcium 8.8 mg/dL (8.4-10.2); Carbon Dioxide 32 mmol/L (22-29); Chloride 101 mmol/L (96-108); Estimated Glomerular Filt Rate > 60; Glucose Random 113 mg/dL (60-115); Potassium 3.4 mmol/L (3.3-5.1); Sodium 140 mmol/L (135-145)
[2023-04-18] MEDS: methylPREDNISolone Sod Succ 40 MG/ML VIAL IVPUSH (07:06)
[2023-04-18 07:12] LABS: Hematocrit 32.5 % (37.0-47.0); Hemoglobin 10.7 g/dl (12.0-16.0); Mean Corpuscular HGB Conc 32.9 g/dl (31.0-35.0); Mean Corpuscular Hemoglobin 31.5 pg (27.0-33.0); Mean Corpuscular Volume 95.6 fL (80.0-98.0); Mean Platelet Volume 10.3 fL (9.4-12.3); NRBC Pct Auto 0.1 /100WBC (0.0-0.2); Platelet Count 167 X10*3/uL (160-400); Red Cell Distribution Width 16.9 % (11.0-16.0); White Blood Count 24.1 X10*3/uL (4.8-10.8)
[2023-04-18 07:34] VITALS: BP 166/70; PULSE 87; RESP 20; TEMP 36.3; O2SAT 97
--- NOTE | 2023-04-18 09:24 | P.CONCA_ITS ---
History of Present Illness History of Present Illness Date of Service: 04/18/23 Chief complaint: SOB Narrative: This is a cardiology consultation regarding atrial fibrillation. Patient has extensive medical history including lung cancer with Mets to the brain, COPD and hypertension. She basically came for shortness of breath and being treated for respiratory failure and pneumonia. In this context, she had some atrial fibrillation with rapid rate but then went back to sinus rhythm. We have been asked see her for further evaluation. Patient states that she has had atrial fibrillation the past when she was hospitalized [facility] but she converted to sinus rhythm. She has not been any anticoagulation in the past. Otherwise, denies any cardiac history like coronary artery disease, myocardial infarction or cardiomyopathy. Review of Systems Review of Systems: Yes all other systems are reviewed and are negative Constitutional: Constitutional: Reports as per HPI and Reports no additional constitutional complaints Eyes: Eyes: Reports as per HPI and Denies no additional eye complaints ENT: Denies system reviewed and no additional complaints, except as documented and Reports as per HPI Cardiovascular: Cardiovascular: Reports as per HPI, Reports no additional cardiovascular complaints, Denies acrocyanosis, Denies cool extremities, Denies chest pain, Denies leg edema, Denies lightheadedness, Denies palpitations and Reports dyspnea Respiratory: Respiratory: Reports as per HPI, Denies no additional respiratory complaints and Reports dyspnea Gastrointestinal: Gastrointestinal: Reports as per HPI and Denies no additional gastrointestinal complaints Genitourinary: Genitourinary: Reports as per HPI Musculoskeletal: Musculoskeletal: Reports no additional musculoskeletal complaints and Reports as per HPI Integumentary/Breasts: Skin/Breast: Reports system reviewed and no additional complaints, except as docu Neurologic: Reports system reviewed and no additional complaints, except as documented and Reports as per HPI Psychiatric: Psychiatric: Reports no additional psychiatric complaints and Reports as per HPI Endocrine: Endocrine: Reports no additional endocrine complaints, Reports as per HPI and Denies palpitations Hematologic/Lymphatic: Hematologic/Lymphatic: Reports no additional hematologic/lymphatic complaints and Reports as per HPI Allergic/Immunologic: Allergic/Immunologic: Reports no additional allergic/immunologic complaints and Reports as per HPI [facility] Past Medical History Medical History Basal cell carcinoma Port-A-Cath in place (~02/03/23) Family History Family History Sister Thyroid cancer Breast cancer Kidney stone Father Rectal cancer Surgical History Surgical History History of tonsillectomy S/P pulmonary artery branches stent placement (~2022) [place] teeth extracted Social History Social History Household Members: Children Housing: House Do you presently have visiting nurse or other home services: No Alcohol intake: never Patient Tobacco Use Status: Former Tobacco user Tobacco use type: Cigarette service: No Current occupational status: retired [employer] Allergies Allergy/AdvReac Type Severity Reaction Status Date / Time meperidine [From Demerol] Allergy Unknown Unknown Verified 02/16/23 13:10 Active Medications: Current Medications Acetaminophen (Acetaminophen 325 Mg Tablet) 650 mg PO Q6H PRN PRN Reason: Pain, Mild (Pain Scale 1-3) Last Admin: 04/17/23 23:45 Dose: 650 mg Albuterol Sulfate (Albuterol Sulfate (0.083%) 2.5 Mg/3 Ml Vial.Neb) 2.5 mg INHALE Q4H PRN PRN Reason: wheezing Docusate Sodium (Docusate Sodium 100 Mg Capsule) 100 mg PO DAILY PRN PRN Reason: Constipation Enoxaparin Sodium (Enoxaparin Sodium 40 Mg/0.4 Ml Syringe) 40 mg SUBCUT Q24H [facility] Last Admin: 04/17/23 12:08 Dose: 40 mg Epinephrine (Racepinephrine Hcl 0.5 Ml Vial.Neb) 0.5 ml INHALE Q4H PRN PRN Reason: Stridors Folic Acid (Folic Acid 1 Mg Tablet) 1 mg PO BEDTIME [facility] Last Admin: 04/17/23 20:07 Dose: 1 mg Furosemide (Furosemide 20 Mg Tablet) 20 mg PO DAILY [facility]; Protocol Last Admin: 04/17/23 09:01 Dose: 20 mg Guaifenesin (Guaifenesin La 600 Mg Tab.Er.12h) 1,200 mg PO BID PRN PRN Reason: cough Last Admin: 04/17/23 02:47 Dose: 1,200 mg Guaifenesin/Dextromethorphan (Guaifenesin Dm 200/20/10 Ml 10 Ml Syrup) 10 ml PO Q4H PRN PRN Reason: Congestion Last Admin: 04/18/23 05:08 Dose: 10 ml Azithromycin 500 mg/ Sodium (Chloride) 250 mls @ 125 mls/hr IV Q24H [facility] Last Infusion: 04/17/23 14:23 Dose: Infused Piperacillin Sod/Tazobactam (Sod 3.375 gm/ Sodium Chloride) 50 mls @ 100 mls/hr IV Q6H [facility] Last Infusion: 04/18/23 06:05 Dose: Infused Methylprednisolone Sodium Succinate (Methylprednisolone Sod Succ 40 Mg/Ml Vial) 40 mg IVPUSH Q12H [facility] Last Admin: 04/18/23 07:06 Dose: 40 mg Metoprolol Succinate (Metoprolol Succinate Er 50 Mg Tab.Er.24h) 50 mg PO BEDTIME [facility]; Protocol Last Admin: 04/17/23 20:07 Dose: 50 mg Multivitamins/Vitamin C (Multivitamin Tablet) 1 tab PO DAILY [facility] Last Admin: 04/17/23 09:01 Dose: 1 tab Omeprazole (Omeprazole 20 Mg Capsule.) 20 mg PO DAILY@0630 [facility] Last Admin: 04/18/23 05:08 Dose: 20 mg Ondansetron HCl (Ondansetron Hcl 4 Mg/2 Ml Vial) 4 mg IVPUSH Q8H PRN PRN Reason: Nausea and Vomiting Oxycodone HCl (Oxycodone Hcl Immed Release 5 Mg Tablet) 5 mg PO Q8H PRN PRN Reason: Pain, Moderate(Pain Scale 4-6) Last Admin: 04/15/23 16:45 Dose: 5 mg Sodium Chloride (0.9 % Sodium Chloride Flush 3 Ml Syringe) 3 ml IVFLUSH QSHIFT [facility] Last Admin: 04/17/23 20:07 Dose: 3 ml Sodium Chloride (Sodium Chloride 3 % Inhalation 15 Ml Vial.Neb) 4 ml INHALE TID PRN PRN Reason: sputum production Home Medications Medication Instructions Recorded Confirmed Last Taken Type albuterol sulfate 2.5 mg/3 mL 2.5 mg inhalation Q6H PRN wheezing 03/08/23 04/15/23 Unknown History (0.083 %) solution for nebulization folic acid 1 mg tablet 1 mg PO BEDTIME 03/08/23 04/15/23 04/14/23 History metoprolol succinate 50 mg 50 mg PO BEDTIME 03/08/23 04/15/2323 History tablet,extended release 24 hr omeprazole 20 mg capsule,delayed 20 mg PO DAILY@0630 03/08/23 04/15/23 04/14/23 History release acetaminophen 325 mg tablet 650 mg PO Q6H PRN Pain 04/15/23 04/15/23 Unknown History (Tylenol) dexamethasone 4 mg tablet 4 mg PO ONCE 04/15/23 04/15/23 04/14/23 History dextromethorphan-guaifenesin 10 10 ml PO Q4H PRN Congestion 04/15/23 04/15/23 Unknown History mg-200 mg/5 mL oral liquid furosemide 20 mg tablet (Lasix) 20 mg PO DAILY 04/15/23 04/15/23 04/14/23 History multivitamin 1 tab PO DAILY 04/15/23 04/15/23 04/14/23 History sodium chloride 3 % for 4 ml inhalation TID PRN sputum 04/15/23 04/15/23 Unknown History nebulization production Physical Exam Vital Signs: Vital Signs: Last Vital Signs Temp 97.3 F 04/18/23 07:34 Pulse 87 04/18/23 07:34 Resp 20 04/18/23 07:34 BP 166/70 H 04/18/23 07:34 Pulse Ox 97 04/18/23 07:34 O2 Del Method Nasal Cannula 04/18/23 07:34 O2 Flow Rate 3 04/18/23 07:34 BMI result Body Mass Index 22.6 Const: General: comfortable, no acute distress, ill appearing and tired appearing Orientation/consciousness: patient oriented x3 HEENT: Other: Unremarkable Head: Yes normal to inspection Ears: hearing grossly abnormal bilaterally Neck: Neck: Yes normal visual inspection Chest: Chest palpation & inspection: normal inspection of the chest Resp: Auscultation: rhonchi and wheezes Cardio: Palpation: normal PMI Heart sounds: S1 normal heart sound present, S2 normal heart sound present, no gallops, no murmurs and no rubs GI: Palpation (GI): Soft to palpation Back/Spine/Pelvis: Other: unremarkable Skin: General skin exam: no rashes or lesions noted Neuro: General: patient oriented x3 Extrem: General: Yes normal to inspection Psych: Mental Status: mental status grossly normal Objective Labs and Meds 04/18/23 05:38 04/18/23 05:38 Lab results: Laboratory Results - last 24 hr 04/17/23 04/18/23 04/18/23 08:14 05:23 05:38 WBC 24.1 H RBC 3.40 L Hgb 10.7 L Hct 32.5 L MCV 95.6 MCH 31.5 MCHC 32.9 RDW 16.9 H Plt Count 167 MPV 10.3 Absolute Nucleated RBC 0.020 H Nucleated RBC % (auto) 0.1 Sodium Potassium Chloride Carbon Dioxide Anion Gap BUN Creatinine Estim Creat Clear Calc Estimated GFR Random Glucose Calcium Magnesium 2.1 TSH 0.25 L Stool Occult Blood POSITIVE 04/18/23 05:38 WBC RBC Hgb Hct MCV MCH MCHC RDW Plt Count MPV Absolute Nucleated RBC Nucleated RBC % (auto) Sodium 140 Potassium 3.4 Chloride 101 Carbon Dioxide 32 H Anion Gap 10 L BUN 31 H Creatinine 0.56 Estim Creat Clear Calc 74.0 Estimated GFR > 60 Random Glucose 113 Calcium 8.8 Magnesium TSH Stool Occult Blood ECG Interpretation: EKG with sinus tachycardia, 109/Min; no significant ST-T changes. The EKG, there was atrial fibrillation rapid rate episode but then converted to sinus rhythm. Nothing yesterday or last night. Assessment and Plan (1) Atrial fibrillation, new onset: Status: Acute (2) Respiratory failure: Status: Acute (3) Non-small cell lung cancer: Status: Acute (4) Metastasis to brain: Status: Acute Plan Telemetry data shows atrial fibrillation rapid rate but then converted back to sinus rhythm. Currently, she is in sinus rhythm. She is fairly wheezy. Hence stop the beta-blockers and rather use diltiazem. We can do 60 mg 4 times a day by mouth. Then convert to sustained release preparation, comparable dose. Considering brain metastasis, that might be significant bleeding risk and hence may not be suitable for anticoagulation. Will need to check that with Hematology. Also there is a concern for hemoccult stools. Overall, does not seem to be an ideal candidate for anticoagulation. Discussed with Dr. Hall/. Overall goals of care to be determined. Time Spent With Patient Time: Total time managing care of this patient today ____ minutes. Procedures Date of Service Date of Service: 04/18/23
[2023-04-18] MEDS: Multivitamin TABLET 1 TAB PO (09:44)
[2023-04-18] MEDS: Furosemide 20 MG TABLET PO (09:44)
[2023-04-18] MEDS: 0.9 % Sodium Chloride Flush 3 ML SYRINGE IVFLUSH ×3 (09:44→20:10)
[2023-04-18] MEDS: Pantoprazole Sodium 40 MG/10 ML VIAL IVPUSH ×2 (11:29→17:00)
[2023-04-18] MEDS: Azithromycin 500 MG in 0.9 % Sodium Chloride 250 ML 125 MG IV (11:29)
--- NOTE | 2023-04-18 12:15 | PM.PNPUL ---
Subjective Subjective Date of Service: 04/18/23 Interval history: The patient was seen on exam. Clinically she is looking better. Still having some wheezing. The stridor is improved. Still has a hard time expectorating. Still looks frail. Patient is still full code. Objective Data Labs 04/18/23 05:38 04/18/23 05:38 Labs: Laboratory Results - last 24 hr 04/18/23 04/18/23 04/18/23 05:23 05:38 05:38 WBC 24.1 H RBC 3.40 L Hgb 10.7 L Hct 32.5 L MCV 95.6 MCH 31.5 MCHC 32.9 RDW 16.9 H Plt Count 167 MPV 10.3 Absolute Nucleated RBC 0.020 H Nucleated RBC % (auto) 0.1 Sodium 140 Potassium 3.4 Chloride 101 Carbon Dioxide 32 H Anion Gap 10 L BUN 31 H Creatinine 0.56 Estim Creat Clear Calc 74.0 Estimated GFR > 60 Random Glucose 113 Calcium 8.8 Stool Occult Blood POSITIVE Microbiology Microbiology Results: Microbiology 04/15/23 06:52 Blood - Venous Blood Culture - Preliminary No growth after 48 hours. 04/15/23 06:53 Blood - Venous Blood Culture - Preliminary No growth after 48 hours. Review of Systems Review of Systems Yes Unobtainable due to mental condition Constitutional: Reports fatigue Eyes: Denies change in vision Reports hearing loss and Denies tongue swelling Cardiovascular: Denies chest pain and Reports dyspnea Respiratory: Reports chest congestion, Reports cough, Denies hemoptysis and Reports dyspnea Gastrointestinal: Reports no additional gastrointestinal complaints Musculoskeletal: Reports myalgias Endocrine: Reports fatigue Hematologic/Lymphatic: Denies easy bleeding Allergic/Immunologic: Denies tongue swelling Physical Exam Vital Signs: Vital Signs: Last Vital Signs Temp 97.3 F 04/18/23 07:34 Pulse 87 04/18/23 07:34 Resp 20 04/18/23 07:34 BP 166/70 H 04/18/23 07:34 Pulse Ox 97 04/18/23 07:34 O2 Del Method Nasal Cannula 04/18/23 07:34 O2 Flow Rate 3 04/18/23 07:34 BMI result Body Mass Index 22.6 Const: General: ill appearing and tired appearing; No in distress HEENT: Head: Yes normocephalic Neck: Neck: Yes supple Chest: Chest palpation & inspection: normal inspection of the chest Resp: Effort & Inspection: no stridor and not tachypneic Auscultation: diminished lung sounds Cardio: Heart sounds: S1 normal heart sound present and S2 normal heart sound present GI: Palpation (GI): Soft to palpation Skin: General skin exam: no rashes or lesions noted Extrem: General: No clubbing Procedures Date of Service Date of Service: 04/18/23 Assessment and Plan Assessment and plan (1) Respiratory failure: Status: Acute (2) Non-small cell lung cancer: Status: Acute (3) Acute exacerbation of chronic obstructive airways disease: Status: Acute (4) Pneumonia: Status: Acute (5) Stridor: Status: Acute Plan Continue budesonide nebs Continue IV steroids, hopefully deescalate to p.o. prednisone tomorrow Continue antibiotic therapy for postobstructive pneumonia Still has a slight evidence of the stridor but much improved goals of care, guarded condition Time Spent With Patient Time: Total time managing care of this patient today ____ minutes. Progress Note: Quality Stroke Does the patient have a stroke diagnosis?: No
[2023-04-18] MEDS: dilTIAZem HCL 60 MG TABLET PO ×3 (12:37→20:09)
--- NOTE | 2023-04-18 12:48 | P.CNGI_ITS ---
History of Present Illness Data of Consult Service Date: 04/18/23 Requesting physician: Allen Hall Primary Care Provider: Nicolas Asif MD HPI Reason for consult: anemia ?82-year-old female with a hx of metastatic?non-small cell lung cancer diagnosed 01/09/2023 with 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, COPD not on home O2, and HTN who I am seeing for assessment for anemia prior to possible anti coagulation She initially presented with worsening shortness of breath, wheezing and pr oductive cough as well as c/o back pain related to XRT for her mets. SHe also just started chemo recently. Denies chest pain/pressure, palpitations. No fever, chills, nausea or vomiting. She was being treated for COPD exaerbation and possible pneumonia. She did develope rapid a-fib but converted to SR. There may be a plan to commence anti coag but she is noted on labs to have acute on chronic anemia with HGB on admission 12.7--->10.7 now. She does admit to darker stools for 1 day, did take advil for 1 week few back and has been on chronic steroids for 2 months. Denies rectal bleeding, no abdo pain, no reflux, and no nose bleeds, no hematuria Since being in hopsital she feels better, breathing is easier, no chest or abdominal pain. CTPE: negative for PE, aortic dissection, or aneurysm.? stable large right upper lobe mass with likely direct extension to the right mediastinum, abnormal metastatic subcarinal and precarinal lymphadenopathy.? Patchy opacity in the superior segment of right lower lobe chronic T7 vertebral fracture and new superior endplate deformity of L1 vertebra likely acute.? Also demonstrated heterogeneous left kidney mass Review of Systems Review of Systems: Constitutional : + Weight loss, No Fever, No Chills ENT/Mouth : No sore throat, No Rhinorrhea Eyes: No Swelling, No Redness Cardiovascular : No Chest Pain, No SOB, No Edema Respiratory : +cough and sputum Gastrointestinal : see HPI Genitourinary : NO Dysuria, No Urinary Frequency, No Hematuria, No Urgency Musculoskeletal : No joint pain, No Myalgias, No Joint Swelling Skin : No Skin Lesions, No rash Neuro : + Weakness, No Numbness, No Dizziness, No Headache Psych : No Anxiety/Panic, No Depression Heme/Lymph: No Bruising, No Lymphadenopathy Endocrine : No Polyuria, No Polydipsia All other systems reviewed and are negative. [facility] Past Medical History Medical History Basal cell carcinoma Port-A-Cath in place (~02/03/23) Family History Family History Sister Thyroid cancer Breast cancer Kidney stone Father Rectal cancer Surgical History Surgical History History of tonsillectomy S/P pulmonary artery branches stent placement (~2022) [place] teeth extracted Social History Social History Household Members: Children Housing: House Do you presently have visiting nurse or other home services: No Alcohol intake: never Patient Tobacco Use Status: Former Tobacco user Tobacco use type: Cigarette service: No Current occupational status: retired Meds Allergies Allergy/AdvReac Type Severity Reaction Status Date / Time meperidine [From Demerol] Allergy Unknown Unknown Verified 02/16/23 13:10 Active Medications: Current Medications Acetaminophen (Acetaminophen 325 Mg Tablet) 650 mg PO Q6H PRN PRN Reason: Pain, Mild (Pain Scale 1-3) Last Admin: 04/17/23 23:45 Dose: 650 mg Albuterol Sulfate (Albuterol Sulfate (0.083%) 2.5 Mg/3 Ml Vial.Neb) 2.5 mg INHALE Q4H PRN PRN Reason: wheezing Diltiazem HCl (Diltiazem Hcl 60 Mg Tablet) 60 mg PO QID RAQUEL; Protocol Last Admin: 04/18/23 12:37 Dose: 60 mg Docusate Sodium (Docusate Sodium 100 Mg Capsule) 100 mg PO DAILY PRN PRN Reason: Constipation Epinephrine (Racepinephrine Hcl 0.5 Ml Vial.Neb) 0.5 ml INHALE Q4H PRN PRN Reason: Stridors Folic Acid (Folic Acid 1 Mg Tablet) 1 mg PO BEDTIME RAQUEL Last Admin: 04/17/23 20:07 Dose: 1 mg Furosemide (Furosemide 20 Mg Tablet) 20 mg PO DAILY RAQUEL; Protocol Last Admin: 04/18/23 09:44 Dose: 20 mg Guaifenesin (Guaifenesin La 600 Mg Tab.Er.12h) 1,200 mg PO BID PRN PRN Reason: cough Last Admin: 04/17/23 02:47 Dose: 1,200 mg Guaifenesin/Dextromethorphan (Guaifenesin Dm 200/20/10 Ml 10 Ml Syrup) 10 ml PO Q4H PRN PRN Reason: Congestion Last Admin: 04/18/23 11:30 Dose: 10 ml Azithromycin 500 mg/ Sodium (Chloride) 250 mls @ 125 mls/hr IV Q24H [facility] Last Admin: 04/18/23 11:29 Dose: 125 mls/hr Piperacillin Sod/Tazobactam (Sod 3.375 gm/ Sodium Chloride) 50 mls @ 100 mls/hr IV Q6H [facility] Last Infusion: 04/18/23 10:21 Dose: Infused Methylprednisolone Sodium Succinate (Methylprednisolone Sod Succ 40 Mg/Ml Vial) 40 mg IVPUSH Q12H [facility] Last Admin: 04/18/23 07:06 Dose: 40 mg Multivitamins/Vitamin C (Multivitamin Tablet) 1 tab PO DAILY [facility] Last Admin: 04/18/23 09:44 Dose: 1 tab Ondansetron HCl (Ondansetron Hcl 4 Mg/2 Ml Vial) 4 mg IVPUSH Q8H PRN PRN Reason: Nausea and Vomiting Oxycodone HCl (Oxycodone Hcl Immed Release 5 Mg Tablet) 5 mg PO Q8H PRN PRN Reason: Pain, Moderate(Pain Scale 4-6) Last Admin: 04/15/23 16:45 Dose: 5 mg Pantoprazole Sodium (Pantoprazole Sodium 40 Mg/10 Ml Vial) 40 mg IVPUSH BID@0630,1630 [facility] Last Admin: 04/18/23 11:29 Dose: 40 mg Sodium Chloride (0.9 % Sodium Chloride Flush 3 Ml Syringe) 3 ml IVFLUSH QSHIFT [facility] Last Admin: 04/18/23 09:44 Dose: 3 ml Sodium Chloride (Sodium Chloride 3 % Inhalation 15 Ml Vial.Neb) 4 ml INHALE TID PRN PRN Reason: sputum production Home Medications Medication Instructions Recorded Confirmed Last Taken Type albuterol sulfate 2.5 mg/3 mL 2.5 mg inhalation Q6H PRN wheezing 03/08/23 04/15/23 Unknown History (0.083 %) solution for nebulization folic acid 1 mg tablet 1 mg PO BEDTIME 03/08/23 04/15/23 04/14/23 History metoprolol succinate 50 mg 50 mg PO BEDTIME 03/08/23 04/15/23 04/14/23 History tablet,extended release 24 hr omeprazole 20 mg capsule,delayed 20 mg PO DAILY@0630 03/08/23 04/15/23 04/14/23 History release acetaminophen 325 mg tablet 650 mg PO Q6H PRN Pain 04/15/23 04/15/23 Unknown History (Tylenol) dexamethasone 4 mg tablet 4 mg PO ONCE 04/15/23 04/15/23 04/14/23 History dextromethorphan-guaifenesin 10 10 ml PO Q4H PRN Congestion 04/15/23 04/15/23 Unknown History mg-200 mg/5 mL oral liquid furosemide 20 mg tablet (Lasix) 20 mg PO DAILY 04/15/23 04/15/23 04/14/23 History multivitamin 1 tab PO DAILY 04/15/23 04/15/23 04/14/23 History sodium chloride 3 % for 4 ml inhalation TID PRN sputum 04/15/23 04/15/23 Unknown History nebulization production Physical Exam Vital Signs: Vital Signs: Last Vital Signs Temp 97.3 F 04/18/23 07:34 Pulse 87 04/18/23 07:34 Resp 20 04/18/23 07:34 BP 166/70 H 04/18/23 07:34 Pulse Ox 97 04/18/23 07:34 O2 Del Method Nasal Cannula 04/18/23 07:34 O2 Flow Rate 3 04/18/23 07:34 BMI result Body Mass Index 22.6 EXAM: GENERAL: The patient is thin, frail, v small mouth VITAL SIGNS:see workflow HEENT: Nonicteric sclerae, PERRLA, EOMI. Oropharynx clear. Moist mucous membranes. Conjunctivae appear well mildly pale. No thyroid mass. CHEST: Chest wall is nontender. HEART: Regular rate and rhythm without murmurs. LUNGS: coarse breath sounds with some wheeze to auscultation bilaterally. ABDOMEN: Soft, positive bowel sounds, nontender, no organomegaly.no flank tenderness SKIN: No rash, no excessive bruising, petechiae, or purpura. NEUROLOGIC: Cranial nerves II-XII intact without motor/sensory deficit. psych- nml affect Results Labs 04/18/23 05:38 04/18/23 05:38 Labs: Short CBC 04/18/23 Range/Units 05:38 WBC 24.1 H (4.8-10.8) X10*3/uL Hgb 10.7 L (12.0-16.0) g/dl Hct 32.5 L (37.0-47.0) % Plt Count 167 (160-400) X10*3/uL BMP 04/18/23 05:38 Sodium 140 Potassium 3.4 Chloride 101 Carbon Dioxide 32 H BUN 31 H Creatinine 0.56 Calcium 8.8 Microbiology Microbiology Results: Microbiology 04/15/23 06:52 Blood - Venous Blood Culture - Preliminary No growth after 48 hours. 04/15/23 06:53 Blood - Venous Blood Culture - Preliminary No growth after 48 hours. Imaging Chest x-ray: My impression: right ivone hilar mass and small left pl effusion Assessment and Plan (1) Acute on chronic blood loss anemia: Status: Acute Plan !/ Anemia likely from combination of mucosal losses from steroids, chemo and stress illness with malnutrition and anemia of chronic disease. She is high risk candidate for EGD due to her O2 requirement, fraility and small mouth. PLAN: 1/ Cont with PPI, can add carafate 2/ IF stool color normalized and HGB stable then can commence anti coagulation, if ongoing concers for GIB then can consider GI series before doing EGD. Time Spent With Patient Time: Total time managing care of this patient today ____ minutes. Procedures Date of Service Date of Service: 04/18/23
--- NOTE | 2023-04-18 12:51 | P.PNIM_ITS ---
Subjective Subjective Date of Service: 04/18/23 Interval History: seen and evaluated this morning less hypoxic. still requiring O2 supplement though in sinus rhythm Developed MElena overnight, positive occult stool with a drop in Hb Tolerating diet Feels weak but no fever or chills Review of Systems Review of Systems: Yes all other systems are reviewed and are negative Physical Exam 2 Vital Signs: Vital Signs: Last Vital Signs Temp 97.3 F 04/18/23 07:34 Pulse 87 04/18/23 07:34 Resp 20 04/18/23 07:34 BP 166/70 H 04/18/23 07:34 Pulse Ox 97 04/18/23 07:34 O2 Del Method Nasal Cannula 04/18/23 07:34 O2 Flow Rate 3 04/18/23 07:34 BMI result Body Mass Index 22.6 Const: Other: Constitutional : Awake, interactive, in mild respiratory distress Neck : Normal inspection, Supple Cardiovascular : RRR, no JVP, no lower extremity edema Respiratory : decreased bilateral air entry, basal bilateral crackles, scattered expiratory wheezes, on O2 supplement Gastrointestinal: soft, lax, Normal bowel sounds, Non tender Skin : Warm, Dry Neurological : Alert & oriented x3, No focal deficit Objective Data Active Medications Acetaminophen (Acetaminophen 325 Mg Tablet) 650 mg PO Q6H PRN PRN Reason: Pain, Mild (Pain Scale 1-3) Last Admin: 04/17/23 23:45 Dose: 650 mg Documented By: DARA Albuterol Sulfate (Albuterol Sulfate (0.083%) 2.5 Mg/3 Ml Vial.Neb) 2.5 mg INHALE Q4H PRN PRN Reason: wheezing Diltiazem HCl (Diltiazem Hcl 60 Mg Tablet) 60 mg PO QID COUNT INCLUDES THE [facility]; Protocol Last Admin: 04/18/23 12:37 Dose: 60 mg Documented By: DEJON Docusate Sodium (Docusate Sodium 100 Mg Capsule) 100 mg PO DAILY PRN PRN Reason: Constipation Epinephrine (Racepinephrine Hcl 0.5 Ml Vial.Neb) 0.5 ml INHALE Q4H PRN PRN Reason: Stridors Folic Acid (Folic Acid 1 Mg Tablet) 1 mg PO BEDTIME COUNT INCLUDES THE [facility] Last Admin: 04/17/23 20:07 Dose: 1 mg Documented By: DARA Furosemide (Furosemide 20 Mg Tablet) 20 mg PO DAILY COUNT INCLUDES THE [facility]; Protocol Last Admin: 04/18/23 09:44 Dose: 20 mg Documented By: DEJON Guaifenesin (Guaifenesin La 600 Mg Tab.Er.12h) 1,200 mg PO BID PRN PRN Reason: cough Last Admin: 04/17/23 02:47 Dose: 1,200 mg Documented By: DARA Guaifenesin/Dextromethorphan (Guaifenesin Dm 200/20/10 Ml 10 Ml Syrup) 10 ml PO Q4H PRN PRN Reason: Congestion Last Admin: 04/18/23 11:30 Dose: 10 ml Documented By: DEJON Azithromycin 500 mg/ Sodium (Chloride) 250 mls @ 125 mls/hr IV Q24H COUNT INCLUDES THE [facility] Last Admin: 04/18/23 11:29 Dose: 125 mls/hr Documented By: DEJON Piperacillin Sod/Tazobactam (Sod 3.375 gm/ Sodium Chloride) 50 mls @ 100 mls/hr IV Q6H COUNT INCLUDES THE [facility] Last Infusion: 04/18/23 10:21 Dose: 0 mls/hr Documented By: DEJON Methylprednisolone Sodium Succinate (Methylprednisolone Sod Succ 40 Mg/Ml Vial) 40 mg IVPUSH Q12H COUNT INCLUDES THE [facility] Last Admin: 04/18/23 07:06 Dose: 40 mg Documented By: DARA Multivitamins/Vitamin C (Multivitamin Tablet) 1 tab PO DAILY COUNT INCLUDES THE [facility] Last Admin: 04/18/23 09:44 Dose: 1 tab Documented By: DEJON Ondansetron HCl (Ondansetron Hcl 4 Mg/2 Ml Vial) 4 mg IVPUSH Q8H PRN PRN Reason: Nausea and Vomiting Oxycodone HCl (Oxycodone Hcl Immed Release 5 Mg Tablet) 5 mg PO Q8H PRN PRN Reason: Pain, Moderate(Pain Scale 4-6) Last Admin: 04/15/23 16:45 Dose: 5 mg Documented By: BEVERLY Pantoprazole Sodium (Pantoprazole Sodium 40 Mg/10 Ml Vial) 40 mg IVPUSH BID@0630,1630 COUNT INCLUDES THE [facility] Last Admin: 04/18/23 11:29 Dose: 40 mg Documented By: DEJON Sodium Chloride (0.9 % Sodium Chloride Flush 3 Ml Syringe) 3 ml IVFLUSH QSHIFT COUNT INCLUDES THE [facility] Last Admin: 04/18/23 09:44 Dose: 3 ml Documented By: DEJON Sodium Chloride (Sodium Chloride 3 % Inhalation 15 Ml Vial.Neb) 4 ml INHALE TID PRN PRN Reason: sputum production Labs 04/18/23 05:38 04/18/23 05:38 Labs: Laboratory Results - last 24 hr 04/18/23 04/18/23 04/18/23 05:23 05:38 05:38 MCV 95.6 MCH 31.5 MCHC 32.9 RDW 16.9 H Plt Count 167 MPV 10.3 Absolute Nucleated RBC 0.020 H Nucleated RBC % (auto) 0.1 Anion Gap 10 L Estim Creat Clear Calc 74.0 Estimated GFR > 60 Random Glucose 113 Calcium 8.8 Stool Occult Blood POSITIVE Microbiology Microbiology Results: Microbiology 04/15/23 06:52 Blood Culture - Preliminary Blood - Venous No growth after 48 hours. 04/15/23 06:53 Blood Culture - Preliminary Blood - Venous No growth after 48 hours. Assessment and Plan (1) Metastasis to brain: Status: Acute (2) Atrial fibrillation, new onset: Status: Acute (3) Swallowing problem: Status: Acute (4) Respiratory failure: Status: Acute (5) Non-small cell lung cancer: Status: Acute (6) Acute exacerbation of chronic obstructive airways disease: Status: Acute (7) Acute on chronic blood loss anemia: Status: Acute Plan Pt is an 82-year-old female with a PMH significant for?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 Patient states yesterday her breathing gradually got worse to the point last night where she simply ?could not breathe. Pt will be admitted to the hospital for acute respiratory failure in the setting of metastatic lung cancer, COPD exacerbation and possible pneumonia. Acute respiratory failure 2/2 sepsis with Metastatic lung cancer, COPD exacerbation, pneumonia CTA negative for PE but showing patchy opacity in the superior segment of right lower lobe Continue Solu-Medrol 40mg IV q12 Nebulizers PRN Continue azithromycin and Zosyn Wean down O2 as tolerated Pulmonology input appreciated New onset Afib w RvR Converted back to sinus on Cardizem drip Normal TSH, Mg , Pending ECHO Cardiology input, change Metoprolol to Cardizem for wheezing keep on Tele To discuss AC with patient as she is having bloody bowel motions pending GI eval Acute on chronic blood loss anemia 2/2 GIB +ve occult Drop in Hb from 12.7 to 10.7 IV Pantoprazole Hold any blood thinners GI eval follow H&H 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 Centeno this past Wednesday04/12/2023. Heme/Onc following Leukocytosis WBC trended down to 22k likely d/t Neulasta injection, steroid use Lactic acidosis, resolved Elevated troponin Patient asymptomatic, EKG negative for ST elevations or depressions Most likely type 2 in the setting of demand ischemia HTN Continue metoprolol Chronic lower leg edema Continue home Lasix Full Code DVT Prophylaxis: Lovenox Pt will require a hospitalization overnight for treatment of?acute respiratory f ailure in the setting of metastatic lung cancer, COPD exacerbation, and pneumonia with IV antibiotics, high-dose IV steroids, and breathing treatments. Time Spent With Patient Time: Total time managing care of this patient today ____ minutes. Quality Stroke Does the patient have a stroke diagnosis?: No VTE Prior VTE?: No VTE Risk Level:: Medical - moderate - high VTE Device Contraindication: Treatment Not Indicated VTE Drug Contraindication: N/A - Med Ordered
[2023-04-18] MEDS: Sucralfate 1 GM TABLET PO ×3 (13:13→20:09)
[2023-04-18 13:29] LABS: Hematocrit 31.7 % (37.0-47.0); Hemoglobin 10.4 g/dl (12.0-16.0); Mean Corpuscular HGB Conc 32.8 g/dl (31.0-35.0); Mean Corpuscular Hemoglobin 31.6 pg (27.0-33.0); Mean Corpuscular Volume 96.4 fL (80.0-98.0); Platelet Count 139 X10*3/uL (160-400); Red Blood Count 3.29 X10*6/uL (4.20-5.50); Red Cell Distribution Width 16.8 % (11.0-16.0); White Blood Count 21.2 X10*3/uL (4.8-10.8)
[2023-04-18 14:07] LABS: CDiff Gene PCR NEGATIVE (Negative)
[2023-04-18 15:29] VITALS: BP 145/61; PULSE 90; RESP 18; TEMP 37; O2SAT 92
[2023-04-18] MEDS: Acetaminophen 325 MG TABLET 650 MG PO (17:00)
[2023-04-18] MEDS: oxyCODONE HCl Immed Release 5 MG TABLET PO (17:10)
[2023-04-18 19:35] VITALS: BP 125/56; PULSE 71; RESP 17; TEMP 37.1; O2SAT 98
[2023-04-18] MEDS: Folic Acid 1 MG TABLET PO (20:10)
[2023-04-18 23:10] VITALS: BP 127/59; PULSE 76; RESP 18; TEMP 37; O2SAT 96
[2023-04-19] MEDS: guaiFENesin DM 200/20/10 ML 10 ML SYRUP PO ×5 (01:06→22:48)
[2023-04-19 03:09] VITALS: BP 142/69; PULSE 89; RESP 17; TEMP 36.7; O2SAT 97
[2023-04-19] MEDS: Piperacillin Sodium/Tazobactam 3.375 GM in 0.9 % Sodium Chloride 50 ML IV ×2 (03:49→11:24)
[2023-04-19] MEDS: Acetaminophen 325 MG TABLET 650 MG PO (04:25)
--- NOTE | 2023-04-19 04:48 | PC.NURSE ---
pt was asking for the respiratory treatment, this nurse called RT. RT told me discontinue the RT d/t broncho spasm cause the new on set of Afib. educated the pt. pt agreed and understands it. will CONST monitor S&S and any changes.
--- NOTE | 2023-04-19 04:58 | PC.NURSE ---
in addition to previous note, do not suction it. same reason.
[2023-04-19] MEDS: Pantoprazole Sodium 40 MG/10 ML VIAL IVPUSH ×2 (05:38→17:00)
[2023-04-19] MEDS: methylPREDNISolone Sod Succ 40 MG/ML VIAL IVPUSH (06:50)
[2023-04-19] MEDS: Sucralfate 1 GM TABLET PO ×4 (06:50→22:48)
--- NOTE | 2023-04-19 07:00 | CA_ITS ---
Transthoracic Echocardiogram Patient (Last, First, Middle): Michelle Estrada, Gender: Female Date of : 1940 Age: 82 Procedure Date: 04/19/2023 Procedure Type: Transthoracic Echocardiogram Location: [facility] Height: 170.18 cm Weight: 65.32 kg BSA: 1.76 m2 Heart Rate: bpm BP: 174 / 66 mmHg Cleaner Laboratory Equipment: JESSE Referring MD: Allen Hall MD Symptoms: new onset Afib Study Quality: Adequate Conclusions: - Normal left ventricular size and systolic function. There is moderately increased left ventricular wall thickness. The visually estimated ejection fraction is between 60-65%. - Normal right ventricular cavity size and systolic function. - There is mild to moderate tricuspid valve regurgitation. The right ventricular systolic pressure is 51 mmHg. Moderately elevated right atrial pressure. Moderate pulmonary hypertension is present. Findings Left Ventricle Normal left ventricular size and systolic function. There is moderately increased left ventricular wall thickness. The visually estimated ejection fraction is between 60-65%. There is no evidence of regional wall motion abnormalities. Diastolic function is normal for age. Right Ventricle Normal right ventricular cavity size and systolic function. Atria The left atrium is normal in size. The right atrium is normal in size. Aortic Valve There is a normal trileaflet aortic valve. There is no aortic valve stenosis. There is no aortic valve regurgitation. Mitral Valve The mitral valve appears normal. There is mild mitral valve regurgitation. There is no mitral valve stenosis. Pulmonic Valve The pulmonic valve is likely normal. There is trace pulmonic valve regurgitation. Tricuspid Valve Normal tricuspid valve structure. There is mild to moderate tricuspid valve regurgitation. The right ventricular systolic pressure is 51 mmHg. Moderately elevated right atrial pressure. Moderate pulmonary hypertension is present. Great Vessels All visible segments of the aorta are normal in size. The visualized portions of the pulmonary artery and branches are normal. Venous The inferior vena cava is dilated and collapses greater than 50% with inspiration. Pericardium/Pleural There is no evidence of pericardial effusion. Prior Study Comparison No prior study available for comparison. Measurements 2D Linear Measurements IVSd: 1.24 0.6-0.9/0.6-1.0 cm LVIDd: 3.65 3.9-5.3/4.2-5.9 cm LVIDd Index: 2.07 2.4-3.2/2.2-3.1 cm/m2 LVIDs: 2.44 2.0-3.6 cm LVPWd: 1.21 0.7-1.1 cm LA Diam: 3.20 2.7-3.8/3.0-4.0 cm LAIDs Index: 1.82 1.5-2.3 cm/m2 LV Mass: 185.49 67-162/88-224 g LV Mass Index: 105.39 43-95/49-115 g/m2 LVOT Diam: 1.80 3.0+(-)1.3 cm 2D Systolic Function EF 4C: 53.40 >55% EF 2C: 56.40 >55% EF BiP: 54.10 >55% Mitral Valve MV Pk E: 0.71 MV PK A: 0.89 MV Decel Time: 213.00 E/A: 0.80 E'Lateral: 8.38 E'Medial: 7.62 E/E' Med: 9.30 E/E' Lat: 8.50 PHT: 62.00 MVA PHT: 3.55 Decel [place]: 3.33 Aortic Valve AoV Pk Fazal: 1.44 AoV Mn Fazal: 0.90 AoV VTI: 0.28 AoV Pk Grad: 8.00 Aov Mn Grad: 4.00 LUDIN Cont.VTI: 1.93 LVOT LVOT Pk Fazal: 1.04 LVOT Mn Fazal: 0.72 LVOT VTI: 0.21 LVOT Pk Grad: 4.00 LVOT Mn Grad: 2.00 LVOT Diam: 1.80 LVOT Area: 2.54 Diastolic Function MV Pk E: 0.71 MV Pk A: 0.89 E/A: 0.80 E'Medial: 7.62 E/E' Med: 9.30 E' Laterial: 8.38 E/E' Lat: 8.50 Right Ventricle TAPSE (mm): 17.70 TVS' Fazal: 20.20 Tricuspid Valve TR Pk Fazal: 3.27 TR Pk Grad: 43.00 RA Press: 8.00 RVSP: 51.00 Great Vessels Aorta Sinus of Valsalva: 3.16 2.0-3.[address] [place]: 2.73 1.7-3.4 cm Ao Asc: 3.20 2.1-3.4 cm Updated in Other Vendor System with Status of Final Jesús Brand MD electronically signed on 04/19/2023 8:25:37 PM with status of Final
[2023-04-19 07:10] LABS: Hematocrit 30.9 % (37.0-47.0); Hemoglobin 10.1 g/dl (12.0-16.0); Mean Corpuscular HGB Conc 32.7 g/dl (31.0-35.0); Mean Corpuscular Hemoglobin 31.8 pg (27.0-33.0); Mean Corpuscular Volume 97.2 fL (80.0-98.0); Mean Platelet Volume 10.4 fL (9.4-12.3); Platelet Count 121 X10*3/uL (160-400); Red Blood Count 3.18 X10*6/uL (4.20-5.50); Red Cell Distribution Width 16.7 % (11.0-16.0); White Blood Count 16.5 X10*3/uL (4.8-10.8)
[2023-04-19 07:13] VITALS: BP 174/66; PULSE 85; RESP 20; TEMP 36.5; O2SAT 97
[2023-04-19 07:31] LABS: Anion Gap 11 (12-20); Blood Urea Nitrogen 30 mg/dL (9-16); Calcium 8.6 mg/dL (8.4-10.2); Carbon Dioxide 31 mmol/L (22-29); Chloride 103 mmol/L (96-108); Creatinine Clr Calc Pharmacy 82.9; Estimated Glomerular Filt Rate > 60; Glucose Random 92 mg/dL (60-115); Potassium 3.1 mmol/L (3.3-5.1); Sodium 142 mmol/L (135-145)
--- NOTE | 2023-04-19 10:37 | MHC.CM.PN ---
Per ROUNDS discussion, Patient is not yet medically cleared for dc(will discuss Code Status today); PT recommends home with services and CM will continue to follow.
[2023-04-19] MEDS: Potassium Chloride Packet 20 MEQ PACKET 40 MEQ PO (11:15)
[2023-04-19] MEDS: 0.9 % Sodium Chloride Flush 3 ML SYRINGE IVFLUSH ×3 (11:15→22:49)
[2023-04-19] MEDS: Furosemide 20 MG TABLET PO (11:16)
[2023-04-19] MEDS: methylPREDNISolone Sod Succ 40 MG/ML VIAL 20 MG IVPUSH (11:16)
[2023-04-19] MEDS: Multivitamin TABLET 1 TAB PO (11:16)
[2023-04-19] MEDS: dilTIAZem HCL 60 MG TABLET PO ×4 (11:18→22:48)
[2023-04-19] MEDS: Azithromycin 500 MG in 0.9 % Sodium Chloride 250 ML 125 MG IV (11:25)
--- NOTE | 2023-04-19 12:26 | MHC.CLN ---
F/U DIET ADVANCED TO 2GM NA CHOPPED-RECOMMEND REGULAR CHOPPED R/T ADVANCED AGE AND DX RECENT DX SMALL CELL LUNG CANCER WITH METS TO BRAIN AND KIDNEY-STARTED CHEMO 04/12 VARIABLE PO INTAKE RANGING FROM 0-75% SKIN WITH STAGE I TO BUTTOCK MONITOR PO INTAKE CLOSELY
[2023-04-19] MEDS: Loperamide HCl 2 MG CAPSULE PO ×2 (12:44→17:01)
[2023-04-19 13:15] VITALS: BP 149/65; PULSE 95; RESP 20; TEMP 36.6; O2SAT 96
[2023-04-19] MEDS: guaiFENesin LA 600 MG TAB.ER.12H 1200 MG PO (13:45)
--- NOTE | 2023-04-19 13:59 | MHC.SLORD ---
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 Pt w/ wet, congested cough. No PO trials given. RN notified immediately. [employer]CH[employer]IC discussed w/ MD- Per MD, pt was tolerating modified diet over weekend (NDD3/thin), MBSS not indicated at this time. PUBLIC [employer]ESS [employer] MECH[employer]IC will continue to follow.
--- NOTE | 2023-04-19 15:11 | P.PNIM_ITS ---
Subjective Subjective Date of Service: 04/19/23 Interval History: seen and evaluated this morning Feels tired and has no energy Breathing better, still requiring O2 supplement in sinus rhythm still having melena episodes with reported small amounts Tolerating diet no fever or chills Review of Systems Review of Systems: Yes all other systems are reviewed and are negative Physical Exam Vital Signs: Vital Signs: Last Vital Signs Temp 97.8 F 04/19/23 13:15 Pulse 95 04/19/23 13:15 Resp 20 04/19/23 13:15 BP 149/65 H 04/19/23 13:15 Pulse Ox 96 04/19/23 13:15 O2 Del Method Nasal Cannula 04/19/23 13:15 O2 Flow Rate 3 04/19/23 13:15 BMI result Body Mass Index 22.6 Const: Other: Constitutional : Awake, interactive, in mild respiratory distress Neck : Normal inspection, Supple Cardiovascular : RRR, no JVP, no lower extremity edema Respiratory : decreased bilateral air entry, basal bilateral crackles, scattered expiratory wheezes, on O2 supplement Gastrointestinal: soft, lax, Normal bowel sounds, Non tender Skin : Warm, Dry Neurological : Alert & oriented x3, No focal deficit Objective Data Active Medications Acetaminophen (Acetaminophen 325 Mg Tablet) 650 mg PO Q6H PRN PRN Reason: Pain, Mild (Pain Scale 1-3) Last Admin: 04/19/23 04:25 Dose: 650 mg Documented By: GALE Albuterol Sulfate (Albuterol Sulfate (0.083%) 2.5 Mg/3 Ml Vial.Neb) 2.5 mg INHALE Q4H PRN PRN Reason: wheezing Diltiazem HCl (Diltiazem Hcl 60 Mg Tablet) 60 mg PO QID [facility]; Protocol Last Admin: 04/19/23 13:45 Dose: 60 mg Documented By: DEJON Docusate Sodium (Docusate Sodium 100 Mg Capsule) 100 mg PO DAILY PRN PRN Reason: Constipation Epinephrine (Racepinephrine Hcl 0.5 Ml Vial.Neb) 0.5 ml INHALE Q4H PRN PRN Reason: Stridors Folic Acid (Folic Acid 1 Mg Tablet) 1 mg PO BEDTIME [facility] Last Admin: 04/18/23 20:10 Dose: 1 mg Documented By: GALE Furosemide (Furosemide 20 Mg Tablet) 20 mg PO DAILY [facility]; Protocol Last Admin: 04/19/23 11:16 Dose: 20 mg Documented By: DEJON Guaifenesin (Guaifenesin La 600 Mg Tab.Er.12h) 1,200 mg PO BID PRN PRN Reason: cough Last Admin: 04/19/23 13:45 Dose: 1,200 mg Documented By: DEJON Guaifenesin/Dextromethorphan (Guaifenesin Dm 200/20/10 Ml 10 Ml Syrup) 10 ml PO Q4H PRN PRN Reason: Congestion Last Admin: 04/19/23 11:16 Dose: 10 ml Documented By: DEJON Azithromycin 500 mg/ Sodium (Chloride) 250 mls @ 125 mls/hr IV Q24H [facility] Last Infusion: 04/19/23 11:38 Dose: 0 mls/hr Documented By: DEJON Piperacillin Sod/Tazobactam (Sod 3.375 gm/ Sodium Chloride) 50 mls @ 100 mls/hr IV Q6H [facility] Last Infusion: 04/19/23 13:14 Dose: 0 mls/hr Documented By: DEJON Loperamide HCl (Loperamide Hcl 2 Mg Capsule) 2 mg PO Q4H PRN PRN Reason: Diarrhea Last Admin: 04/19/23 12:44 Dose: 2 mg Documented By: DEJON Methylprednisolone Sodium Succinate (Methylprednisolone Sod Succ 40 Mg/Ml Vial) 20 mg IVPUSH Q24H [facility] Last Admin: 04/19/23 11:16 Dose: 20 mg Documented By: DEJON Multivitamins/Vitamin C (Multivitamin Tablet) 1 tab PO DAILY [facility] Last Admin: 04/19/23 11:16 Dose: 1 tab Documented By: DEJON Ondansetron HCl (Ondansetron Hcl 4 Mg/2 Ml Vial) 4 mg IVPUSH Q8H PRN PRN Reason: Nausea and Vomiting Oxycodone HCl (Oxycodone Hcl Immed Release 5 Mg Tablet) 5 mg PO Q8H PRN PRN Reason: Pain, Moderate(Pain Scale 4-6) Last Admin: 04/18/23 17:10 Dose: 5 mg Documented By: DEJON Pantoprazole Sodium (Pantoprazole Sodium 40 Mg/10 Ml Vial) 40 mg IVPUSH BID@0630,1630 [facility] Last Admin: 04/19/23 05:38 Dose: 40 mg Documented By: GALE Sodium Chloride (0.9 % Sodium Chloride Flush 3 Ml Syringe) 3 ml IVFLUSH QSHIFT [facility] Last Admin: 04/19/23 11:15 Dose: 3 ml Documented By: DEJON Sodium Chloride (Sodium Chloride 3 % Inhalation 15 Ml Vial.Neb) 4 ml INHALE TID PRN PRN Reason: sputum production Sucralfate (Sucralfate 1 Gm Tablet) 1 gm PO QIDACHS [facility] Last Admin: 04/19/23 11:16 Dose: 1 gm Documented By: DEJON Labs 04/19/23 06:53 04/19/23 06:53 Labs: Laboratory Results - last 24 hr 04/19/23 04/19/23 06:53 06:53 MCV 97.2 MCH 31.8 MCHC 32.7 RDW 16.7 H Plt Count 121 L MPV 10.4 Absolute Nucleated RBC 0.000 Nucleated RBC % (auto) 0.0 Anion Gap 11 L Estim Creat Clear Calc 82.9 Estimated GFR > 60 Random Glucose 92 Calcium 8.6 Assessment and Plan (1) Acute on chronic blood loss anemia: Status: Acute (2) Metastasis to brain: Status: Acute (3) Swallowing problem: Status: Acute (4) Acute exacerbation of chronic obstructive airways disease: Status: Acute (5) Pneumonia: Status: Acute (6) Leukocytosis: Status: Acute (7) GI bleed: Status: Acute Plan Pt is an 82-year-old female with a PMH significant for?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 Patient states yesterday her breathing gradually got worse to the point last night where she simply ?could not breathe. Pt will be admitted to the hospital for acute respiratory failure in the setting of metastatic lung cancer, COPD exacerbation and possible pneumonia. Acute respiratory failure 2/2 sepsis with Metastatic lung cancer, COPD exacerbation, pneumonia CTA negative for PE but showing patchy opacity in the superior segment of right lower lobe DC Solu-Medrol Nebulizers PRN Continue azithromycin and CTX , DC Zosyn Wean down O2 as tolerated Pulmonology input appreciated New onset Afib w RvR back to sinus Pending ECHO Cardiology input, change Metoprolol to Cardizem for wheezing keep on Tele with brain metastasis cardio opt to hold on any blood thinners Acute on chronic blood loss anemia 2/2 GIB +ve occult Drop in Hb from 12.7 to 10.7 IV Pantoprazole Hold any blood thinners GI eval appreciated follow H&H Swallowing problem ANTHROPOLOGIST eval rec NDD3 diet, swallowing improving with improving clinical condition Stridor for upper airways narrowing, Treated with epinephrine neb Pulm following [id number]-[id number] lung cancer with 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, diagnosed Received radiation treatments at [facility], and started on chemotherapy with Dr. Centeno this past Wednesday04/12/2023. Heme/Onc following Leukocytosis WBC trended down to 22k likely d/t Neulasta injection, steroid use Lactic acidosis, resolved Elevated troponin Patient asymptomatic, EKG negative for ST elevations or depressions Most likely type 2 in the setting of demand ischemia HTN Continue metoprolol Chronic lower leg edema Continue home Lasix Full Code DVT Prophylaxis: Lovenox require a hospitalization overnight for treatment of?acute respiratory failure in the setting of metastatic lung cancer, COPD exacerbation, and pneumonia with IV antibiotics, and evidence of GIB Time Spent With Patient Time: Total time managing care of this patient today ____ minutes. Quality Stroke Does the patient have a stroke diagnosis?: No VTE Prior VTE?: No VTE Risk Level:: Medical - moderate - high VTE Device Contraindication: Treatment Not Indicated VTE Drug Contraindication: N/A - Med Ordered
[2023-04-19 15:50] LABS: Hematocrit 30.4 % (37.0-47.0); Hemoglobin 9.9 g/dl (12.0-16.0); Mean Corpuscular HGB Conc 32.6 g/dl (31.0-35.0); Mean Corpuscular Hemoglobin 31.5 pg (27.0-33.0); Mean Corpuscular Volume 96.8 fL (80.0-98.0); Platelet Count 115 X10*3/uL (160-400); Red Blood Count 3.14 X10*6/uL (4.20-5.50); Red Cell Distribution Width 16.8 % (11.0-16.0)
[2023-04-19] MEDS: cefTRIAXone sodium 1 GM in 0.9 % Sodium Chloride 50 ML IV (17:00)
[2023-04-19 17:15] VITALS: BP 127/51; PULSE 86; RESP 18; TEMP 36.2; O2SAT 99
[2023-04-19 19:41] VITALS: BP 150/62; PULSE 86; RESP 18; TEMP 36.6; O2SAT 96
[2023-04-19] MEDS: Folic Acid 1 MG TABLET PO (22:49)
[2023-04-19 23:30] VITALS: BP 144/71; PULSE 82; RESP 20; TEMP 36.8; O2SAT 98
[2023-04-20 03:00] VITALS: BP 146/62; PULSE 81; RESP 18; TEMP 36.3; O2SAT 97
[2023-04-20 05:28] LABS: Hematocrit 29.3 % (37.0-47.0); Hemoglobin 9.4 g/dl (12.0-16.0); Mean Corpuscular HGB Conc 32.1 g/dl (31.0-35.0); Mean Corpuscular Volume 96.7 fL (80.0-98.0); Mean Platelet Volume 10.9 fL (9.4-12.3); Platelet Count 114 X10*3/uL (160-400); Red Blood Count 3.03 X10*6/uL (4.20-5.50); Red Cell Distribution Width 16.7 % (11.0-16.0); White Blood Count 13.6 X10*3/uL (4.8-10.8)
[2023-04-20 05:44] LABS: Anion Gap 10 (12-20); Blood Urea Nitrogen 30 mg/dL (9-16); Calcium 8.7 mg/dL (8.4-10.2); Carbon Dioxide 30 mmol/L (22-29); Chloride 105 mmol/L (96-108); Creatinine Clr Calc Pharmacy 82.9; Estimated Glomerular Filt Rate > 60; Glucose Random 95 mg/dL (60-115); Potassium 3.8 mmol/L (3.3-5.1); Sodium 141 mmol/L (135-145)
[2023-04-20] MEDS: Pantoprazole Sodium 40 MG/10 ML VIAL IVPUSH ×2 (05:45→17:11)
[2023-04-20 07:21] VITALS: BP 152/58; PULSE 92; RESP 20; TEMP 37.2; O2SAT 97
[2023-04-20] MEDS: guaiFENesin DM 200/20/10 ML 10 ML SYRUP PO ×3 (08:11→20:37)
[2023-04-20] MEDS: dilTIAZem HCL 60 MG TABLET PO ×4 (08:11→20:32)
[2023-04-20] MEDS: Furosemide 20 MG TABLET PO (08:11)
[2023-04-20] MEDS: Multivitamin TABLET 1 TAB PO (08:11)
[2023-04-20] MEDS: dexAMETHasone 2 MG TABLET PO (08:11)
[2023-04-20] MEDS: 0.9 % Sodium Chloride Flush 3 ML SYRINGE IVFLUSH ×3 (08:16→23:34)
[2023-04-20 09:49] VITALS: BP 152/58; PULSE 92; O2SAT 97
[2023-04-20 10:57] VITALS: BP 142/54; PULSE 80; RESP 20; TEMP 36.3; O2SAT 98
[2023-04-20] MEDS: Sucralfate 1 GM TABLET PO ×3 (12:27→20:32)
[2023-04-20] MEDS: Azithromycin 500 MG in 0.9 % Sodium Chloride 250 ML 125 MG IV (12:29)
--- NOTE | 2023-04-20 13:58 | MHC.CM.PN ---
Per MD, CM made a referral to [facility] for the arrangement of a Hospice Informational. DARRELL will follow.
--- NOTE | 2023-04-20 14:55 | HO.PM.IMPN ---
Subjective Subjective Date of Service: 04/20/23 Interval History: seen and evaluated this morning Breathing better, still requiring O2 supplement in sinus rhythm No reported melena episodes last 24 hours Tolerating diet no fever or chills Review of Systems Review of Systems: Yes all other systems are reviewed and are negative Physical Exam Vital Signs: Vital Signs: Last Vital Signs Temp 97.4 F 04/20/23 10:57 Pulse 80 04/20/23 10:57 Resp 20 04/20/23 10:57 BP 142/54 H 04/20/23 10:57 Pulse Ox 98 04/20/23 10:57 O2 Del Method Room Air 04/20/23 13:07 O2 Flow Rate 3 04/20/23 10:57 BMI result Body Mass Index 22.6 Const: Other: Constitutional : Awake, interactive, in mild respiratory distress w tachypnea Neck : Normal inspection, Supple Cardiovascular : RRR, no JVP, no lower extremity edema Respiratory : decreased bilateral air entry, basal bilateral crackles, scattered expiratory wheezes, on O2 supplement Gastrointestinal: soft, lax, Normal bowel sounds, Non tender Skin : Warm, Dry Neurological : Alert & oriented x3, No focal deficit Objective Data Active Medications Acetaminophen (Acetaminophen 325 Mg Tablet) 650 mg PO Q6H PRN PRN Reason: Pain, Mild (Pain Scale 1-3) Last Admin: 04/19/23 04:25 Dose: 650 mg Documented By: GALE Albuterol Sulfate (Albuterol Sulfate (0.083%) 2.5 Mg/3 Ml Vial.Neb) 2.5 mg INHALE Q4H PRN PRN Reason: wheezing Dexamethasone (Dexamethasone 2 Mg Tablet) 2 mg PO DAILY [facility] Last Admin: 04/20/23 08:11 Dose: 2 mg Documented By: JIA Diltiazem HCl (Diltiazem Hcl 60 Mg Tablet) 60 mg PO QID [facility]; Protocol Last Admin: 04/20/23 12:29 Dose: 60 mg Documented By: JIA Docusate Sodium (Docusate Sodium 100 Mg Capsule) 100 mg PO DAILY PRN PRN Reason: Constipation Epinephrine (Racepinephrine Hcl 0.5 Ml Vial.Neb) 0.5 ml INHALE Q4H PRN PRN Reason: Stridors Folic Acid (Folic Acid 1 Mg Tablet) 1 mg PO BEDTIME [facility] Last Admin: 04/19/23 22:49 Dose: 1 mg Documented By: LUCINA Furosemide (Furosemide 20 Mg Tablet) 20 mg PO DAILY [facility]; Protocol Last Admin: 04/20/23 08:11 Dose: 20 mg Documented By: JIA Guaifenesin (Guaifenesin La 600 Mg Tab.Er.12h) 1,200 mg PO BID PRN PRN Reason: cough Last Admin: 04/19/23 13:45 Dose: 1,200 mg Documented By: DEJON Guaifenesin/Dextromethorphan (Guaifenesin Dm 200/20/10 Ml 10 Ml Syrup) 10 ml PO Q4H PRN PRN Reason: Congestion Last Admin: 04/20/23 12:38 Dose: 10 ml Documented By: JIA Azithromycin 500 mg/ Sodium (Chloride) 250 mls @ 125 mls/hr IV Q24H [facility] Last Infusion: 04/20/23 14:54 Dose: 0 mls/hr Documented By: JIA Ceftriaxone Sodium 1 gm/ (Sodium Chloride) 50 mls @ 100 mls/hr IV Q24H [facility] Last Infusion: 04/19/23 17:56 Dose: 0 mls/hr Documented By: DEJON Loperamide HCl (Loperamide Hcl 2 Mg Capsule) 2 mg PO Q4H PRN PRN Reason: Diarrhea Last Admin: 04/19/23 17:01 Dose: 2 mg Documented By: DEJON Multivitamins/Vitamin C (Multivitamin Tablet) 1 tab PO DAILY [facility] Last Admin: 04/20/23 08:11 Dose: 1 tab Documented By: JIA Ondansetron HCl (Ondansetron Hcl 4 Mg/2 Ml Vial) 4 mg IVPUSH Q8H PRN PRN Reason: Nausea and Vomiting Oxycodone HCl (Oxycodone Hcl Immed Release 5 Mg Tablet) 5 mg PO Q8H PRN PRN Reason: Pain, Moderate(Pain Scale 4-6) Last Admin: 04/18/23 17:10 Dose: 5 mg Documented By: DEJON Pantoprazole Sodium (Pantoprazole Sodium 40 Mg/10 Ml Vial) 40 mg IVPUSH BID@0630,1630 [facility] Last Admin: 04/20/23 05:45 Dose: 40 mg Documented By: LUCINA Sodium Chloride (0.9 % Sodium Chloride Flush 3 Ml Syringe) 3 ml IVFLUSH QSHIFT [facility] Last Admin: 04/20/23 12:38 Dose: 3 ml Documented By: JIA Sodium Chloride (Sodium Chloride 3 % Inhalation 15 Ml Vial.Neb) 4 ml INHALE TID PRN PRN Reason: sputum production Sucralfate (Sucralfate 1 Gm Tablet) 1 gm PO QIDACHS [facility] Last Admin: 04/20/23 12:27 Dose: 1 gm Documented By: JIA Labs 04/20/23 05:16 04/20/23 05:16 Labs: Laboratory Results - last 24 hr 04/19/23 04/20/23 04/20/23 15:43 05:16 05:16 MCV 96.8 96.7 MCH 31.5 31.0 MCHC 32.6 32.1 RDW 16.8 H 16.7 H Plt Count 115 L 114 L MPV 10.0 10.9 Absolute Nucleated RBC 0.000 0.000 Nucleated RBC % (auto) 0.0 0.0 Anion Gap 10 L Estim Creat Clear Calc 82.9 Estimated GFR > 60 Random Glucose 95 Calcium 8.7 Microbiology Microbiology Results: Microbiology 04/15/23 06:52 Blood Culture - Final Blood - Venous No growth after 5 days. 04/15/23 06:53 Blood Culture - Final Blood - Venous No growth after 5 days. 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 Patient states yesterday her breathing gradually got worse to the point last night where she simply ?could not breathe. Pt will be admitted to the hospital for acute respiratory failure in the setting of metastatic lung cancer, COPD exacerbation and possible pneumonia. Acute respiratory failure 2/2 sepsis with Metastatic lung cancer, COPD exacerbation, pneumonia CTA negative for PE but showing patchy opacity in the superior segment of right lower lobe DC Solu-Medrol , restart Dexamethasone 2 mg daily Nebulizers PRN Continue azithromycin and CTX , DC Zosyn Wean down O2 as tolerated Pulmonology input appreciated New onset Afib w RvR back to sinus ECHO w EF 60-65% w LVH Cardiology input, change Metoprolol to Cardizem for wheezing keep on Tele with brain metastasis cardio opt to hold on any blood thinners Acute on chronic blood loss anemia 2/2 GIB +ve occult Drop in Hb from 12.7 to 9.4 this morning Continue IV Pantoprazole Hold any blood thinners GI eval appreciated , hold on EGD unless drop in Hb follow H&H Swallowing problem 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 Centeno this past Wednesday04/12/2023. Heme/Onc following Leukocytosis WBC trended down to 22k likely d/t Neulasta injection, steroid use Lactic acidosis, resolved Elevated troponin Patient asymptomatic, EKG negative for ST elevations or depressions Most likely type 2 in the setting of demand ischemia HTN Continue metoprolol Chronic lower leg edema Continue home Lasix Full Code DVT Prophylaxis: Lovenox GOAL OF CARE: Discussed with the patient and HCP.. They would like to talk to dr Centeno and meet with the Hospice team before making decision if she will go to rehab\home PT or to go home with hospice. We had a discussion about DNR\DNI which they will decide on as well after talking to the family. require a hospitalization overnight for treatment of?acute respiratory failure in the setting of metastatic lung cancer, COPD exacerbation, and pneumonia with IV antibiotics, and evidence of GIB Time Spent With Patient Time: Total time managing care of this patient today ____ minutes. Quality Stroke Does the patient have a stroke diagnosis?: No VTE Prior VTE?: No VTE Risk Level:: Medical - moderate - high VTE Device Contraindication: Treatment Not Indicated VTE Drug Contraindication: N/A - Med Ordered
--- NOTE | 2023-04-20 15:42 | PM.HEMONCPN ---
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 Previously measured 3.8 x 2.7 cm. Lymphangitic spread of tumor noted, extensive confluent mediastinal adenopathy contiguous with right hilar mass, 1.5 cm left adrenal nodule and a 1.9 cm hypodense lesion in the left upper pole of kidney. On 11/11/2022 patient had core needle biopsy of left renal mass which was reported as renal cell carcinoma, clear cell type. 01/14/2023 brain MRI ([facility]) showed multiple intracranial enhancing lesions present within left precentral gyrus, right precentral gyrus, right frontal, left cerebellum and right temporal lobe. Compatible with metastatic foci, there was associated vasogenic edema and swelling of left precentral gyrus. Interval History Interval history: Patient is feeling ok. She denies fever or chills. No headache or dizziness. She continues to feel weak, she did say that she got out of bed today. Review of Systems - Constitutional Reports lack of energy - Neurologic Reports system reviewed and no additional complaints, except as documented, Reports as per HPI, Reports weakness, Denies headache(s) [facility] Medical History: Medical History (Last Reviewed 04/16/23 @ 08:15 by Kylie Laws PT) Basal cell carcinoma Port-A-Cath in place Onset Date: ~02/03/23 Family History: Family History (Last Reviewed 04/15/23 @ 12:38 by VIRIDIANA Mcgregor) Sister Thyroid cancer Breast cancer Kidney stone Father Rectal cancer Surgical History: Surgical History (Last Reviewed 04/16/23 @ 08:15 by Kylie Laws PT) History of tonsillectomy S/P pulmonary artery branches stent placement Onset Date: ~2022 [place] teeth extracted Social History: Social History (Last Reviewed 04/15/23 @ 12:38 by VIRIDIANA Mcgregor) Living Situation History: Household Members: Children Housing: House Do you presently have visiting nurse or other home services: No Tobacco History: Patient Tobacco Use Status: Former Tobacco user Tobacco use type: Cigarette Occupation Assessmet: service: No Current occupational status: retired Home Medications and Allergies Current Medications: Current Medications Acetaminophen (Acetaminophen 325 Mg Tablet) 650 mg PO Q6H PRN PRN Reason: Pain, Mild (Pain Scale 1-3) Last Admin: 04/19/23 04:25 Dose: 650 mg Albuterol Sulfate (Albuterol Sulfate (0.083%) 2.5 Mg/3 Ml Vial.Neb) 2.5 mg INHALE Q4H PRN PRN Reason: wheezing Dexamethasone (Dexamethasone 2 Mg Tablet) 2 mg PO DAILY [facility] Last Admin: 04/20/23 08:11 Dose: 2 mg Diltiazem HCl (Diltiazem Hcl 60 Mg Tablet) 60 mg PO QID [facility]; Protocol Last Admin: 04/20/23 12:29 Dose: 60 mg Docusate Sodium (Docusate Sodium 100 Mg Capsule) 100 mg PO DAILY PRN PRN Reason: Constipation Epinephrine (Racepinephrine Hcl 0.5 Ml Vial.Neb) 0.5 ml INHALE Q4H PRN PRN Reason: Stridors Folic Acid (Folic Acid 1 Mg Tablet) 1 mg PO BEDTIME [facility] Last Admin: 04/19/23 22:49 Dose: 1 mg Furosemide (Furosemide 20 Mg Tablet) 20 mg PO DAILY [facility]; Protocol Last Admin: 04/20/23 08:11 Dose: 20 mg Guaifenesin (Guaifenesin La 600 Mg Tab.Er.12h) 1,200 mg PO BID PRN PRN Reason: cough Last Admin: 04/19/23 13:45 Dose: 1,200 mg Guaifenesin/Dextromethorphan (Guaifenesin Dm 200/20/10 Ml 10 Ml Syrup) 10 ml PO Q4H PRN PRN Reason: Congestion Last Admin: 04/20/23 12:38 Dose: 10 ml Azithromycin 500 mg/ Sodium (Chloride) 250 mls @ 125 mls/hr IV Q24H [facility] Last Infusion: 04/20/23 14:54 Dose: Infused Ceftriaxone Sodium 1 gm/ (Sodium Chloride) 50 mls @ 100 mls/hr IV Q24H [facility] Last Infusion: 04/19/23 17:56 Dose: Infused Loperamide HCl (Loperamide Hcl 2 Mg Capsule) 2 mg PO Q4H PRN PRN Reason: Diarrhea Last Admin: 04/19/23 17:01 Dose: 2 mg Multivitamins/Vitamin C (Multivitamin Tablet) 1 tab PO DAILY [facility] Last Admin: 04/20/23 08:11 Dose: 1 tab Ondansetron HCl (Ondansetron Hcl 4 Mg/2 Ml Vial) 4 mg IVPUSH Q8H PRN PRN Reason: Nausea and Vomiting Oxycodone HCl (Oxycodone Hcl Immed Release 5 Mg Tablet) 5 mg PO Q8H PRN PRN Reason: Pain, Moderate(Pain Scale 4-6) Last Admin: 04/18/23 17:10 Dose: 5 mg Pantoprazole Sodium (Pantoprazole Sodium 40 Mg/10 Ml Vial) 40 mg IVPUSH BID@0630,1630 [facility] Last Admin: 04/20/23 05:45 Dose: 40 mg Sodium Chloride (0.9 % Sodium Chloride Flush 3 Ml Syringe) 3 ml IVFLUSH QSHIFT [facility] Last Admin: 04/20/23 12:38 Dose: 3 ml Sodium Chloride (Sodium Chloride 3 % Inhalation 15 Ml Vial.Neb) 4 ml INHALE TID PRN PRN Reason: sputum production Sucralfate (Sucralfate 1 Gm Tablet) 1 gm PO QIDACHS [facility] Last Admin: 04/20/23 12:27 Dose: 1 gm Home Medications Medication Instructions Recorded Confirmed Type albuterol sulfate 2.5 mg/3 mL 2.5 mg inhalation Q6H PRN wheezing 03/08/23 04/15/23 History (0.083 %) solution for nebulization folic acid 1 mg tablet 1 mg PO BEDTIME 03/08/23 04/15/23 History metoprolol succinate 50 mg 50 mg PO BEDTIME 03/08/23 04/15/23 History tablet,extended release 24 hr omeprazole 20 mg capsule,delayed 20 mg PO DAILY@0630 03/08/23 04/15/23 History release acetaminophen 325 mg tablet 650 mg PO Q6H PRN Pain 04/15/23 04/15/23 History (Tylenol) dexamethasone 4 mg tablet 4 mg PO ONCE 04/15/23 04/15/23 History dextromethorphan-guaifenesin 10 10 ml PO Q4H PRN Congestion 04/15/23 04/15/23 History mg-200 mg/5 mL oral liquid furosemide 20 mg tablet (Lasix) 20 mg PO DAILY 04/15/23 04/15/23 History multivitamin 1 tab PO DAILY 04/15/23 04/15/23 History sodium chloride 3 % for 4 ml inhalation TID PRN sputum 04/15/23 04/15/23 History nebulization production Allergies Allergy/AdvReac Type Severity Reaction Status Date / Time meperidine [From Demerol] Allergy Unknown Unknown Verified 02/16/23 13:10 Exam Vital signs: Vital Signs Temp 97.4 F 04/20/23 10:57 Pulse 80 04/20/23 10:57 Resp 20 04/20/23 10:57 BP 142/54 H 04/20/23 10:57 Pulse Ox 98 04/20/23 10:57 O2 Del Method Room Air 04/20/23 13:07 O2 Flow Rate 3 04/20/23 10:57 Intake & Output 04/19/23 04/20/23 04/20/23 18:59 06:59 18:59 Intake Total 710.000 / 710.000 250 / 250 Output Total 300 / 300 Balance 710.000 / 410.000 -300 / 410.000 250 / 250 Urine Output (Average ml/kg/hr) 0.38 0.38 Intake: Intake, Oral Amount 360 / 360 Intake, IV Amount 350.000 / 350.000 250 / 250 Azithromycin 500 mg In 0.9 % 250.000 / 250.000 250 / 250 Sodium Chloride 250 ml @ 125 mls/hr IV Q24H [facility] Rx#: [id number] Piperacillin Sodium/Tazobactam 50.000 / 50.000 3.375 gm In 0.9 % Sodium Chloride 50 ml @ 100 mls/hr IV Q6H [facility] Rx#:[id number] cefTRIAXone sodium 1 gm In 0.9 50 / 50 % Sodium Chloride 50 ml @ 100 mls/hr IV Q24H [facility] Rx#: [id number] Output: Output, Urine Amount 300 / 300 Other: Breakfast % Eaten 0% Lunch % Eaten 25% Number of Incontinent Voids 2 1 Number of Unmeasured Voids 1 2 Number of Bowel Movements 3 1 1 Urine Bedside Commode Bedside Commode Urine Color Yellow Yellow Yellow Last Bowel Movement 04/19/23 04/20/23 04/20/23 Stool Incontinent Incontinent Bedside Commode Stool Amount Large Moderate Moderate Stool Color Blood Tinged Brown Brown Stool Consistency Watery Loose Loose Weight 65.4 kg BMI result Body Mass Index 22.6 - Constitutional Present: mild distress, chronically ill appearing, disheveled - Routine HEENT Exam Head: Present: normal inspection - Routine Respiratory Exam Present: accessory muscle use, prolonged expiratory phase, wheezes - Routine Cardiovascular Exam Cardiovascular: Present: S1, S2, tachycardia - Routine Abdominal Exam Present: soft - Routine Extremities Exam Absent: calf tenderness - Routine Skin Exam Present: intact. Absent: cyanosis Data - Labs CBC & Chem 7: 04/21/23 05:35 04/21/23 05:35 - Imaging Radiologist's impression: ITS Impressions Chest X-Ray 04/15/23 06:43 IMPRESSION: Right perihilar and upper lung opacity consistent with known tumor. Developing process the left at the left base consistent with atelectasis/infiltrate Chest CTA 04/15/23 08:40 IMPRESSION: No evidence of PE. No evidence aortic dissection or aneurysm. No significant change in the large right upper lobe mass with likely direct extension to the right mediastinum. Abnormal metastatic subcarinal and precarinal lymphadenopathy. Left adrenal lipoma. Likely chronic T7 vertebral fracture. There is a new superior endplate deformity L1 vertebra likely acute. Heterogeneous left kidney mass. Recommend further evaluation with MRI. VTE: negative Chest X-Ray 04/15/23 18:17 IMPRESSION: Right perihilar mass as seen on recent CT and on prior x-ray. Faint right lung base opacity possibly early infiltrate or atelectasis. Increased markings at the left base. Chest X-Ray 04/17/23 01:41 IMPRESSION: Redemonstrated large right perihilar mass, better delineated on recent CT. Mildly improved right basilar aeration. No new consolidation. Assessment and Plan Patient Active problem list reviewed?: Yes (1) Non-small cell lung cancer Status: Acute Assessment and plan: 1. This is a 82-year-old woman with metastatic non-small cell lung cancer, adenocarcinoma with brain metastasis diagnosed in December 2022 at [facility]. Biopsy/excision of right endobronchial mass performed at [facility] on 12/16/[address] Flower at [facility] revealed adenocarcinoma. 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 She was started on dexamethasone and referred back to Radiation Oncology at [facility] for radiation therapy. She received stereotactic radiation therapy from 03/23/23 to 04/06/23. She received 1st dose of palliative chemo immunotherapy with carboplatin, pemetrexed and pembrolizumab on 04/12/23. She did receive Neulasta which can explain her leukocytosis. She is also on a steroid taper which can be contributing to her leukocytosis. She is stable from pulmonary standpoint. Her performance status is rather poor, discussion will be made with her family and patient about further treatment. Thank you. - Time Spent With Patient Time Spent with Patient (in minutes): 10
[2023-04-20 15:48] VITALS: BP 146/54; PULSE 74; RESP 18; TEMP 36.6; O2SAT 96
[2023-04-20] MEDS: cefTRIAXone sodium 1 GM in 0.9 % Sodium Chloride 50 ML IV (17:09)
[2023-04-20] MEDS: guaiFENesin LA 600 MG TAB.ER.12H 1200 MG PO (17:11)
[2023-04-20 20:00] VITALS: BP 154/58; PULSE 84; RESP 18; TEMP 36.7; O2SAT 98
[2023-04-20] MEDS: Folic Acid 1 MG TABLET PO (20:31)
[2023-04-21] VITALS (8 sets, daily range): BP systolic 132–160; BP diastolic 49–79; PULSE 77–100; RESP 16–20; TEMP 36.4–36.8; O2SAT 92–98
[2023-04-21] MEDS: oxyCODONE HCl Immed Release 5 MG TABLET PO (02:36)
[2023-04-21] MEDS: guaiFENesin DM 200/20/10 ML 10 ML SYRUP PO ×2 (02:36→08:56)
[2023-04-21] MEDS: Pantoprazole Sodium 40 MG/10 ML VIAL IVPUSH (05:33)
[2023-04-21 05:55] LABS: Hematocrit 27.8 % (37.0-47.0); Hemoglobin 8.9 g/dl (12.0-16.0); Mean Corpuscular Hemoglobin 31.7 pg (27.0-33.0); Mean Corpuscular Volume 98.9 fL (80.0-98.0); Mean Platelet Volume 11.4 fL (9.4-12.3); Platelet Count 110 X10*3/uL (160-400); Red Blood Count 2.81 X10*6/uL (4.20-5.50); Red Cell Distribution Width 16.6 % (11.0-16.0); White Blood Count 7.4 X10*3/uL (4.8-10.8)
[2023-04-21] MEDS: Sucralfate 1 GM TABLET PO ×4 (05:55→20:22)
[2023-04-21 06:13] LABS: Anion Gap 9 (12-20); Blood Urea Nitrogen 31 mg/dL (9-16); Calcium 9.1 mg/dL (8.4-10.2); Carbon Dioxide 35 mmol/L (22-29); Chloride 103 mmol/L (96-108); Creatinine Clr Calc Pharmacy 82.9; Estimated Glomerular Filt Rate > 60; Glucose Random 90 mg/dL (60-115); Potassium 3.5 mmol/L (3.3-5.1); Sodium 143 mmol/L (135-145)
[2023-04-21] MEDS: dexAMETHasone 2 MG TABLET PO (08:54)
[2023-04-21] MEDS: Multivitamin TABLET 1 TAB PO (08:54)
[2023-04-21] MEDS: Furosemide 20 MG TABLET PO (08:54)
[2023-04-21] MEDS: 0.9 % Sodium Chloride Flush 3 ML SYRINGE IVFLUSH (08:56)
--- NOTE | 2023-04-21 10:02 | MHC.CLN ---
F/U PO REMAINS VARIABLE DIET Rx: CHOPPED-APPROPRIATE RD TO FOLLOW WEEKLY CONTINUE TO MONITOR PO INTAKE CLOSELY
--- NOTE | 2023-04-21 10:22 | MHC.CM.PN ---
Per [facility] Patient's Daughter had a, mini Hospice Informational yesterday. Patient lives alone (her Son lives in his own apartment in the same house) and family is unable to provide the necessary 24/7 care for Patient to go home with Hospice. Daughter may consider hiring Caregivers. Patient does not have [facility] if Hospice in a SNF becomes the goal. Daughter is supposed to get back to [facility] with family's decision on disposition. CM will follow.
--- NOTE | 2023-04-21 10:59 | MHC.CM.PN ---
PT is now recommending home with services vs STR. CM will follow.
[2023-04-21] MEDS: Albuterol Sulfate (0.083%) 2.5 MG/3 ML VIAL.NEB INHALE ×2 (11:03→20:30)
--- NOTE | 2023-04-21 11:04 | HO.PM.IMPN ---
Subjective Subjective Date of Service: 04/21/23 Interval History: sob, cough Physical Exam Vital Signs: Vital Signs: Last Vital Signs Temp 98.1 F 04/21/23 07:24 Pulse 88 04/21/23 07:24 Resp 16 04/21/23 07:24 BP 145/79 H 04/21/23 07:24 Pulse Ox 98 04/21/23 07:24 O2 Del Method Nasal Cannula 04/21/23 07:24 O2 Flow Rate 3 04/21/23 07:24 BMI result Body Mass Index 22.6 Const: Other: Constitutional : Awake, interactive, in mild respiratory distress w tachypnea Neck : Normal inspection, Supple Cardiovascular : RRR, no JVP, no lower extremity edema Respiratory : decreased bilateral air entry, basal bilateral crackles, scattered expiratory wheezes, on O2 supplement Gastrointestinal: soft, lax, Normal bowel sounds, Non tender Skin : Warm, Dry Neurological : Alert & oriented x3, No focal deficit Objective Data Active Medications Acetaminophen (Acetaminophen 325 Mg Tablet) 650 mg PO Q6H PRN PRN Reason: Pain, Mild (Pain Scale 1-3) Last Admin: 04/19/23 04:25 Dose: 650 mg Documented By: GALE Albuterol Sulfate (Albuterol Sulfate (0.083%) 2.5 Mg/3 Ml Vial.Neb) 2.5 mg INHALE Q4H PRN PRN Reason: wheezing Last Admin: 04/21/23 11:03 Dose: 2.5 mg Documented By: MEG Dexamethasone (Dexamethasone 2 Mg Tablet) 2 mg PO DAILY [facility] Last Admin: 04/21/23 08:54 Dose: 2 mg Documented By: JIA Diltiazem HCl (Diltiazem Hcl Cd 240 Mg Cap.Er.Deg) 240 mg PO DAILY [facility]; Protocol Docusate Sodium (Docusate Sodium 100 Mg Capsule) 100 mg PO DAILY PRN PRN Reason: Constipation Epinephrine (Racepinephrine Hcl 0.5 Ml Vial.Neb) 0.5 ml INHALE Q4H PRN PRN Reason: Stridors Folic Acid (Folic Acid 1 Mg Tablet) 1 mg PO BEDTIME [facility] Last Admin: 04/20/23 20:31 Dose: 1 mg Documented By: JAMES Furosemide (Furosemide 20 Mg Tablet) 20 mg PO DAILY [facility]; Protocol Last Admin: 04/21/23 08:54 Dose: 20 mg Documented By: JIA Guaifenesin (Guaifenesin La 600 Mg Tab.Er.12h) 1,200 mg PO BID PRN PRN Reason: cough Last Admin: 04/20/23 17:11 Dose: 1,200 mg Documented By: JIA Guaifenesin/Dextromethorphan (Guaifenesin Dm 200/20/10 Ml 10 Ml Syrup) 10 ml PO Q4H PRN PRN Reason: Congestion Last Admin: 04/21/23 08:56 Dose: 10 ml Documented By: JIA Azithromycin 500 mg/ Sodium (Chloride) 250 mls @ 125 mls/hr IV Q24H [facility] Last Infusion: 04/20/23 14:54 Dose: 0 mls/hr Documented By: JIA Ceftriaxone Sodium 1 gm/ (Sodium Chloride) 50 mls @ 100 mls/hr IV Q24H [facility] Last Infusion: 04/20/23 18:16 Dose: 0 mls/hr Documented By: JIA Loperamide HCl (Loperamide Hcl 2 Mg Capsule) 2 mg PO Q4H PRN PRN Reason: Diarrhea Last Admin: 04/19/23 17:01 Dose: 2 mg Documented By: DEJON Multivitamins/Vitamin C (Multivitamin Tablet) 1 tab PO DAILY [facility] Last Admin: 04/21/23 08:54 Dose: 1 tab Documented By: JIA Ondansetron HCl (Ondansetron Hcl 4 Mg/2 Ml Vial) 4 mg IVPUSH Q8H PRN PRN Reason: Nausea and Vomiting Oxycodone HCl (Oxycodone Hcl Immed Release 5 Mg Tablet) 5 mg PO Q8H PRN PRN Reason: Pain, Moderate(Pain Scale 4-6) Last Admin: 04/21/23 02:36 Dose: 5 mg Documented By: AALIYAH Sodium Chloride (0.9 % Sodium Chloride Flush 3 Ml Syringe) 3 ml IVFLUSH QSHIFT [facility] Last Admin: 04/21/23 08:56 Dose: 3 ml Documented By: JIA Sodium Chloride (Sodium Chloride 3 % Inhalation 15 Ml Vial.Neb) 4 ml INHALE TID PRN PRN Reason: sputum production Sucralfate (Sucralfate 1 Gm Tablet) 1 gm PO QIDACHS [facility] Last Admin: 04/21/23 05:55 Dose: 1 gm Documented By: AALIYAH Labs 04/21/23 05:35 04/21/23 05:35 Labs: Laboratory Results - last 24 hr 04/21/23 04/21/23 05:35 05:35 MCV 98.9 H MCH 31.7 MCHC 32.0 RDW 16.6 H Plt Count 110 L MPV 11.4 Absolute Nucleated RBC 0.000 Nucleated RBC % (auto) 0.0 Anion Gap 9 L Estim Creat Clear Calc 82.9 Estimated GFR > 60 Random Glucose 90 Calcium 9.1 Microbiology Microbiology Results: Microbiology 04/15/23 06:52 Blood Culture - Final Blood - Venous No growth after 5 days. 04/15/23 06:53 Blood Culture - Final Blood - Venous No growth after 5 days. Assessment and Plan (1) GI bleed: Status: Acute (2) Acute on chronic blood loss anemia: Status: Acute (3) Atrial fibrillation, new onset: Status: Acute (4) Metastasis to brain: Status: Acute (5) Swallowing problem: Status: Acute (6) Respiratory failure: Status: Acute (7) Pneumonia: Status: Acute Plan 82F PMH significant for?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, COPD not on home O2, and HTN who presented to the ED with?with worsening shortness of breath, wheezing and productive cough Acute respiratory failure 2/2 sepsis with Metastatic lung cancer, COPD exacerbation, pneumonia CTA negative for PE but showed patchy opacity in the superior segment of right lower lobe restarted Dexamethasone 2 mg daily Nebulizers PRN Continue azithromycin and CTX Wean down O2 as tolerated Pulmonology input appreciated New onset Afib w RvR back to sinus ECHO w EF 60-65% w LVH Cardiology input, change Metoprolol to Cardizem for wheezing, now on 240mg daily with brain metastasis cardio opt to hold on any blood thinners Acute on chronic blood loss anemia 2/2 GIB +ve occult Drop in Hb from 12.7 to 9.4 this morning Continuepo ppi Hold any blood thinners GI eval appreciated , hold on EGD unless drop in Hb follow H&H Swallowing problem RN PICU eval rec NDD3 with thins, swallowing improving with improving clinical condition Stridor for upper airways narrowing, Treated with epinephrine neb Pulm following [id number] lung cancer with 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, diagnosed 12/2022 Received radiation treatments at [facility], and started on chemotherapy with Dr. Centeno this past Wednesday04/12/2023. Heme/Onc following Leukocytosis WBC trended down to 22k likely d/t Neulasta injection, steroid use Lactic acidosis, resolved Elevated troponin Patient asymptomatic, EKG negative for ST elevations or depressions Most likely type 2 in the setting of demand ischemia HTN Continue metoprolol Chronic lower leg edema Continue home Lasix Full Code DVT Prophylaxis: Lovenox reason for continued hospitalization:yeni grady Time Spent With Patient Time: Total time managing care of this patient today ____ minutes. Quality Stroke Does the patient have a stroke diagnosis?: No VTE Prior VTE?: No VTE Risk Level:: Medical - moderate - high VTE Device Contraindication: Treatment Not Indicated VTE Drug Contraindication: N/A - Med Ordered
[2023-04-21] MEDS: dilTIAZem HCL CD 240 MG CAP.ER.DEG PO (12:23)
--- NOTE | 2023-04-21 13:32 | MHC.SLORD ---
Speech Language Pathology Order Status: Per MD, modified barium swallow to be ordered. 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
[2023-04-21] MEDS: Azithromycin 500 MG TABLET PO (18:01)
[2023-04-21] MEDS: guaiFENesin LA 600 MG TAB.ER.12H 1200 MG PO (18:05)
--- NOTE | 2023-04-21 18:13 | MHC.SL.IMP ---
Date of Plan of Treatment: 04/21/23 Onset of Symptoms/Illness: 04/16/23 Date Treatment Started: 04/16/23 Admitting Diagnosis: (1) GI bleed: (2) Acute on chronic blood loss anemia: (3) Atrial fibrillation, new onset: (4) Metastasis to brain: (5) Swallowing problem: (6) Respiratory failure: (7) Pneumonia: Primary Speech & Language Diagnosis: R13.12 Oropharyngeal Phase Dysphagia Reason for Today's Visit: 03124 Modified Barium Swallow Study Pre-evaluation Dietary Consistencies: Chopped/Advanced (NDD3) Pre-evaluation Liquid Consistency: Thin Pre-evaluation Medication Administration: Crushed with Puree Medical History: Modified Barium Swallow Study Fluoroscopic Evaluation of Swallowing Function CPT Code 56052 Evaluation Year: 2022 Reason for Study: ? 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 Pt was brought to the ED with worsening SOB, wheezing, productive cough. She was admitted for acute respiratory failure in the setting of metastatic lung cancer, COPD exacerbation, and possible pneumonia. Pt was seen by [facility] at bedside on 04/16 and was recommended to start on chopped/advanced (NDD3) diet. Although MD reported pt?s swallow has been improving with improving overall condition, [facility] yesterday did note intermittent cough throughout PO trials. Thus, pt is seen for MBSS to further evaluate extent of oropharyngeal dysphagia and to identify safest and least restrictive diet textures/strategies. Oral Motor Exam Facial Symmetry: Symmetrical Mouth Occlusion: Normal Oral-Facial Teeth Characteristics: Partially Missing, Broken Oral-Facial Teeth Miscellaneous Observation: Oral-Facial Smile (Lips) Description: Normal Oral-Facial Puff Cheeks Description: Reduced Strength Tongue Size: Normal Tongue Excursion Description: Normal Tongue Range of Movement Description: Normal Tongue Speed of Movement Description: Normal Tongue Strength of Movement (against opposing pressure): Normal Tongue Movement Characteristics: Normal/Absent Food and Liquid Trials: Oral Impairment: Lip Closure: Did not test Oral Impairment: Tongue Control During Bolus Hold: 1=Escape to lateral buccal cavity/floor of mouth (FOM) Oral Impairment: Bolus Preparation/Mastication: 2=Disorganized chewing/mashing with solid pieces of bolus Oral Impairment: Bolus Transport/Lingual Motion: 2=Slowed tongue motion Oral Impairment: Oral Residue: 2=Residue collection on oral structures Oral Impairment:Initiation of Pharyngeal Swallow: 3=Bolus head in pyriforms Pharyngeal Impairment: Soft Palate Elevation: 0=No bolus between soft palate (SP)/pharyngeal wall (PW) Pharyngeal Impairment: Laryngeal Elevation: 1=Partial thyroid cartilage/arytenoids to epiglottic petiole movement Pharyngeal Impairment: Anterior Hyoid Excursion: 1=Partial anterior movement Pharyngeal Impairment: Epiglottic Movement: 1=Partial inversion Pharyngeal Impairment: Laryngeal Vestibular Closure:: 1=Incomplete: narrow column air/contrast in laryngeal vestibule Pharyngeal Impairment: Pharyngeal Stripping Wave: 1=Present: diminished Pharyngeal Impairment: Pharyngeal Contraction: Did not test Pharyngeal Impairment: Pharyngoesophageal Segment Openin=Complete distension and complete duration: no obstruction of flow Pharyngeal Impairment: Tongue Base (TB) Retraction: 2=Narrow column of contrast/air between TB and posterior PW Pharyngeal Impairment: Pharyngeal Residue: 2=Collection of residue within or on pharyngeal structures Pharyngeal Impairment: Esophageal Clearance Upright Position: Did not test Impressions and Recommendations Clinical Observations: OBJECTIVE: Time-out: performed at 15:50 Evaluation Start: 15:30; Stop: 15:39 Patient Positioning: Seated 70-90 degrees Viewing Planes: LATERAL ONLY Contrast: MBSImP? Standardized Protocol using commercially prepared, standardized Barium viscosities, including: Varibar? THIN LIQUID (40% w/v, <15 cps) , Varibar? NECTAR (40% w/v, <150-450 cps) , Varibar? THIN HONEY (40% w/v, <800-1800 cps) , 1/2 Shortbread Cookie (1 x1 x.25 ) MBSImP ID: [id number] MBSImP Results: Lip closure for intraoral bolus containment could not be assessed due to logistical reasons not related to physiologic impairment. Tongue control during bolus hold allowed bolus escape to the lateral buccal cavity/floor of mouth. Bolus preparation and mastication demonstrated disorganized chewing/mashing with solid pieces of the bolus unchewed. Bolus transport/lingual motion was with slowed tongue motion. Oral residue was a collection on oral structures. Initiation of the pharyngeal swallow occurred when the bolus head was in the pyriform sinuses. Soft palate elevation resulted in no bolus between the soft palate and the pharyngeal wall. Laryngeal elevation was decreased, with partial superior movement of the thyroid cartilage/partial approximation of the arytenoids to the epiglottic petiole. Anterior hyoid excursion demonstrated partial anterior movement. Epiglottic movement resulted in partial inversion. Laryngeal vestibular closure was incomplete, with a narrow column of air/contrast noted within the laryngeal vestibule at the height of the swallow. Pharyngeal stripping wave was present, but diminished. Pharyngeal contraction could not be determined due to logistical reasons not related to physiologic impairment. Pharyngoesophageal segment opening was completely distended for complete duration with no obstruction of bolus flow. Tongue base retraction allowed a narrow column of contrast or air between the retracted tongue base and the posterior pharyngeal wall. Pharyngeal residue was a collection of residue within or on pharyngeal structures. Esophageal clearance in the upright position could not be assessed due to logistical reasons not related to physiologic impairment. Oral Impairment Score: 10 (absence of score, component 1) Pharyngeal Impairment Score: 9 (absence of score, component 13) Esophageal Impairment Score: --- (absence of score, component 17) Laryngeal Penetration and Aspiration: Penetration was observed in today's study. Thin Contrast entered the airway, remained above the vocal folds, and was ejected from the airway. ASSESSMENT: This exam was conducted by a multidisciplinary team, which included a speech pathologist, radiologist, and facility maintenance technician. Pt was seated upright at 90 degrees for lateral view only. Pt was able to self-administer bites/sips when handed cutlery. Pt trialed the following liquid and solid consistencies: thin liquid barium by cup, nectar thick liquid barium by cup, honey thick liquid barium by cup, pureed solid (applesauce mixed with barium paste), ground solid (chicken salad mixed with barium paste), and regular solid ([place] cookie coated in barium paste). Pt manipulated pureed solid with delayed posterior lingual transport and slowed lingual motion. Mastication was disorganized and prolonged with more advanced solids. With consumption of the shortbread cookie, pt was observed to chew and mash bolus for extended period of time while also pumping her tongue posteriorly. This resulted in posterior escape of the bolus, then coating the posterior epiglottis prior to pharyngeal swallow trigger. There was otherwise trace escape to the floor of mouth with trials of liquids. Pharyngeal swallow trigger was delayed, initiated as the bolus head reached the pyriforms. There was no nasopharyngeal reflux. Incomplete laryngeal elevation with partial anterior hyoid excursion and partial epiglottic inversion. Incomplete laryngeal vestibular closure. Pt was administered sips of thin liquid barium by cup (5 mL, cup sip). On first trial of thin liquid (5 mL sip), there was trace penetration above the vocal folds, which spontaneously cleared. No evidence of penetration or aspiration on repeated trials of thin liquid thereafter. Pt was administered nectar thick and honey thick liquid barium by cup. No evidence of aspiration or penetration. There was good oral and pharyngeal clearance with thin liquid. Note mild vallecular retention on sips of thickened liquid, which cleared with a dry swallow. Pt consumed puree, ground solid, and regular texture solid. No evidence of aspiration or penetration with solid consistencies. There was mild residue coating the blade and base of tongue. Pt?s epiglottis appeared to be retroflexed, which resulted in mild to moderate collection of residue in the valleculae. There was also trace retention in the pyriforms. Pt coughed, possibly in response to sensation caused by residuals, as there was no evidence of aspiration. Pt was instructed for 1-2 dry swallows, which reduced residuals. When taking sips of thin liquid barium, this was more effective in clearing residuals in the oral and pharyngeal cavities. Liquid Intake Recommendation: Thin Liquid Intake Strategies: Small Sips, No Straws Dietary Recommendations: Grnd/Mech Altered (NDD2) Medication Administration: Crushed with Puree Please contact the pharmacy regarding appropriate crushable or liquid drug formulations that are available whenever modified delivery is recommended. Compensatory Strategies Recommended: Sitting Upright (90 deg) Double Swallow No Straw Small Bites and Sips Alternate Liquids/Solids Rate of Ingestion Change Avoid Specific Foods Supervision during eating and or drinking: Total Supervision (1:1) Recommended Treatments: Compens. Strategy Educat. Recommendation for Speech Therapy: Inpatient Speech Therapy Text Comment: Intake Recommendations: Route: PO Diet Grade: Regular, Mechanical Soft Liquid Consistencies: Thin Post-Study Functional Oral Intake Scale (FOIS): 5- Total oral intake of multiple consistencies requiring special preparation Single episode of penetration with sip of thin liquid. Unable to repeat with subsequent trials. No evidence of aspiration. Mild lingual residue, mild to moderate vallecular retention d/t retroflexed epiglottis. Recommend GROUND/MECH ALTERED (NDD2) solids and continue w/ THIN liquids, pills CRUSHED in PUREE with STRICT ASPIRATION PRECAUTIONS: -1:1 supervision during meal time, provide assistance as needed throughout meal -Oral care before first meal and after each subsequent meal -Sit upright during PO intake and for at least 30 minutes afterwards -Moisten food with sauces/gravies, which are thick in consistency and mixed/blended in well -Administer small bites -Chew food well -After each bite, dry swallow followed by liquid wash to promote oral and pharyngeal clearance -Take small sips, one sip at a time -Avoid straws Therapy Recommendations: Therapy will be continued Prognosis for Improvement: The prognosis for the patient to meet nutritional needs by mouth is fair based on degree of impairment, stimulability for treatment. Contact Lens Technician Goals: ? The patient will tolerate the least restrictive diet with a safe/efficient swallow to maintain adequate nutrition and hydration. ? The patient and/or family will participate in further education for swallowing goals. Short Term Goals: ? Diet - The patient will tolerate a mechanical soft diet with thin liquids without signs or symptoms of penetration/aspiration 100% of the time. - The patient will participate in therapeutic PO trials with the [facility]. ? Guidelines - The patient will comply with/recall the following guidelines/strategies 100% of the time with minimal cuing: Bolus Volume Change, Rate of Ingestion Change, Liquid Wash, Additional Swallow(s) per Bolus, No Straws. ? Education - The patient, family, caregiver, nurse will verbalize/demonstrate understanding of the results of this evaluation, the above recommendations, and the swallowing guidelines. Frequency/Duration: PRN Date Range for Service Requested: Timeline to reassess: 3 months Clinician - Supplemental, Miscellaneous Communication: It is important to note MBSS objective studies are snapshots in time and Patient function might vary with factors such as time of day or concomitant medical conditions. For this reason, the final treatment plan for this patient should rest with their medical care team. Additional recommendations should be considered with the totality of the Patient in mind. Thank for the opportunity to participate in the care of this patient. If you have any questions about the content of this report, please contact the [facility] at [facility]. Education: Education regarding findings from today's study and plans for therapy were provided to Patient only through Verbal Instruction. Understanding was expressed by the Patient only. Mechanical Tech Clinician/Clinical Fellow: No Supervisory Statement: N/A Speech Language Pathologist: Winnie Damon M.A., CCC-[facility]
[2023-04-21] MEDS: Folic Acid 1 MG TABLET PO (20:22)
[2023-04-21] MEDS: Ondansetron ODT 4 MG TAB.RAPDIS TRANSLINGU (22:33)
[2023-04-22] VITALS (7 sets, daily range): BP systolic 123–158; BP diastolic 60–67; PULSE 81–99; RESP 18–22; TEMP 36.2–37.4; O2SAT 91–98
[2023-04-22 05:41] LABS: Hematocrit 27.1 % (37.0-47.0); Hemoglobin 8.9 g/dl (12.0-16.0); Mean Corpuscular HGB Conc 32.8 g/dl (31.0-35.0); Mean Corpuscular Hemoglobin 31.6 pg (27.0-33.0); Mean Corpuscular Volume 96.1 fL (80.0-98.0); Mean Platelet Volume 11.1 fL (9.4-12.3); NRBC Pct Auto 0.5 /100WBC (0.0-0.2); Platelet Count 104 X10*3/uL (160-400); Red Blood Count 2.82 X10*6/uL (4.20-5.50); Red Cell Distribution Width 16.4 % (11.0-16.0); White Blood Count 10.4 X10*3/uL (4.8-10.8)
[2023-04-22] MEDS: guaiFENesin DM 200/20/10 ML 10 ML SYRUP PO ×3 (06:01→17:21)
[2023-04-22] MEDS: Omeprazole 40 MG CAPSULE.DR PO (06:01)
[2023-04-22 06:03] LABS: Anion Gap 9 (12-20); Blood Urea Nitrogen 27 mg/dL (9-16); Calcium 8.9 mg/dL (8.4-10.2); Carbon Dioxide 34 mmol/L (22-29); Chloride 101 mmol/L (96-108); Creatinine Clr Calc Pharmacy 86.6; Estimated Glomerular Filt Rate > 60; Glucose Fasting 89 mg/dL (60-99); Potassium 3.3 mmol/L (3.3-5.1); Sodium 141 mmol/L (135-145)
[2023-04-22] MEDS: Sucralfate 1 GM TABLET PO ×4 (08:41→20:15)
[2023-04-22] MEDS: Furosemide 20 MG TABLET PO (08:41)
[2023-04-22] MEDS: dilTIAZem HCL CD 240 MG CAP.ER.DEG PO (08:41)
[2023-04-22] MEDS: Multivitamin TABLET 1 TAB PO (08:41)
[2023-04-22] MEDS: dexAMETHasone 2 MG TABLET PO (08:41)
--- NOTE | 2023-04-22 09:10 | P.PNIM_ITS ---
Subjective Subjective Date of Service: 04/22/23 Interval History: tired, not feeling well today, non specific Physical Exam Vital Signs: Vital Signs: Last Vital Signs Temp 97.1 F 04/22/23 07:24 Pulse 85 04/22/23 07:24 Resp 22 H 04/22/23 07:24 BP 135/61 04/22/23 07:24 Pulse Ox 91 L 04/22/23 07:24 O2 Del Method Nasal Cannula 04/22/23 07:24 O2 Flow Rate 2 04/22/23 07:24 BMI result Body Mass Index 22.6 Const: Other: Constitutional : Awake, interactive, in mild respiratory distress w tachypnea Neck : Normal inspection, Supple Cardiovascular : RRR, no JVP, no lower extremity edema Respiratory : decreased bilateral air entry, basal bilateral crackles, scattered expiratory wheezes, on O2 supplement Gastrointestinal: soft, lax, Normal bowel sounds, Non tender Skin : Warm, Dry Neurological : Alert & oriented x3, No focal deficit Objective Data Active Medications Acetaminophen (Acetaminophen 325 Mg Tablet) 650 mg PO Q6H PRN PRN Reason: Pain, Mild (Pain Scale 1-3) Last Admin: 04/19/23 04:25 Dose: 650 mg Documented By: GALE Albuterol Sulfate (Albuterol Sulfate (0.083%) 2.5 Mg/3 Ml Vial.Neb) 2.5 mg INHALE Q4H PRN PRN Reason: wheezing Last Admin: 04/21/23 20:30 Dose: 2.5 mg Documented By: GLORIA Azithromycin (Azithromycin 500 Mg Tablet) 500 mg PO Q24H [facility] Last Admin: 04/21/23 18:01 Dose: 500 mg Documented By: JIA Cefuroxime Axetil (Cefuroxime Axetil 500 Mg Tablet) 500 mg PO Q12H [facility] Last Admin: 04/22/23 06:01 Dose: 500 mg Documented By: TIAGO Dexamethasone (Dexamethasone 2 Mg Tablet) 2 mg PO DAILY [facility] Last Admin: 04/22/23 08:41 Dose: 2 mg Documented By: DEJON Diltiazem HCl (Diltiazem Hcl Cd 240 Mg Cap.Er.Deg) 240 mg PO DAILY [facility]; Protocol Last Admin: 04/22/23 08:41 Dose: 240 mg Documented By: DEJON Docusate Sodium (Docusate Sodium 100 Mg Capsule) 100 mg PO DAILY PRN PRN Reason: Constipation Epinephrine (Racepinephrine Hcl 0.5 Ml Vial.Neb) 0.5 ml INHALE Q4H PRN PRN Reason: Stridors Folic Acid (Folic Acid 1 Mg Tablet) 1 mg PO BEDTIME [facility] Last Admin: 04/21/23 20:22 Dose: 1 mg Documented By: TIAGO Furosemide (Furosemide 20 Mg Tablet) 20 mg PO DAILY [facility]; Protocol Last Admin: 04/22/23 08:41 Dose: 20 mg Documented By: DEJON Guaifenesin (Guaifenesin La 600 Mg Tab.Er.12h) 1,200 mg PO BID PRN PRN Reason: cough Last Admin: 04/21/23 18:05 Dose: 1,200 mg Documented By: JIA Guaifenesin/Dextromethorphan (Guaifenesin Dm 200/20/10 Ml 10 Ml Syrup) 10 ml PO Q4H PRN PRN Reason: Congestion Last Admin: 04/22/23 06:01 Dose: 10 ml Documented By: TIAGO Loperamide HCl (Loperamide Hcl 2 Mg Capsule) 2 mg PO Q4H PRN PRN Reason: Diarrhea Last Admin: 04/19/23 17:01 Dose: 2 mg Documented By: DEJON Multivitamins/Vitamin C (Multivitamin Tablet) 1 tab PO DAILY [facility] Last Admin: 04/22/23 08:41 Dose: 1 tab Documented By: DEJON Omeprazole (Omeprazole 40 Mg Capsule.) 40 mg PO DAILY@0630 [facility] Last Admin: 04/22/23 06:01 Dose: 40 mg Documented By: TIAGO Ondansetron HCl (Ondansetron Hcl 4 Mg/2 Ml Vial) 4 mg IVPUSH Q8H PRN PRN Reason: Nausea and Vomiting Ondansetron HCl (Ondansetron Odt 4 Mg Tab.Rapdis) 4 mg TRANSLINGU Q6H PRN PRN Reason: Nausea and Vomiting Last Admin: 04/21/23 22:33 Dose: 4 mg Documented By: TIAGO Oxycodone HCl (Oxycodone Hcl Immed Release 5 Mg Tablet) 5 mg PO Q8H PRN PRN Reason: Pain, Moderate(Pain Scale 4-6) Last Admin: 04/21/23 02:36 Dose: 5 mg Documented By: AALIYAH Sodium Chloride (0.9 % Sodium Chloride Flush 3 Ml Syringe) 3 ml IVFLUSH QSHIFT [facility] Last Admin: 04/22/23 08:41 Dose: Not Given Documented By: DEJON Non-Admin Reason: No Access Sodium Chloride (Sodium Chloride 3 % Inhalation 15 Ml Vial.Neb) 4 ml INHALE TID PRN PRN Reason: sputum production Sucralfate (Sucralfate 1 Gm Tablet) 1 gm PO QIDACHS [facility] Last Admin: 04/22/23 08:41 Dose: 1 gm Documented By: DEJON Labs 04/22/23 05:22 04/22/23 05:22 Labs: Laboratory Results - last 24 hr 04/22/23 04/22/23 05:22 05:22 MCV 96.1 MCH 31.6 MCHC 32.8 RDW 16.4 H Plt Count 104 L MPV 11.1 Absolute Nucleated RBC 0.050 H Nucleated RBC % (auto) 0.5 H Anion Gap 9 L Estim Creat Clear Calc 86.6 Estimated GFR > 60 Fasting Glucose 89 Calcium 8.9 Assessment and Plan (1) GI bleed: Status: Acute (2) Acute on chronic blood loss anemia: Status: Acute (3) Atrial fibrillation, new onset: Status: Acute (4) Metastasis to brain: Status: Acute (5) Swallowing problem: Status: Acute (6) Respiratory failure: Status: Acute (7) Pneumonia: Status: Acute Plan 82F PMH significant for?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, COPD not on home O2, and HTN who presented to the ED with?with worsening shortness of breath, wheezing and productive cough Acute respiratory failure 2/2 sepsis with Metastatic lung cancer, COPD exacerbation, pneumonia CTA negative for PE but showed patchy opacity in the superior segment of right lower lobe restarted Dexamethasone 2 mg daily Nebulizers PRN Continue azithromycin and CTX Wean down O2 as tolerated Pulmonology input appreciated New onset Afib w RvR back to sinus ECHO w EF 60-65% w LVH Cardiology input, change Metoprolol to Cardizem for wheezing, now on 240mg daily with brain metastasis cardio opt to hold on any blood thinners Acute on chronic blood loss anemia 2/2 GIB +ve occult Drop in Hb from 12.7 to 9.4 this morning Continuepo ppi Hold any blood thinners GI eval appreciated , hold on EGD unless drop in Hb follow H&H - stable Swallowing problem [employer] eval rec NDD2 with thins, swallowing improving with improving clinical condition Stridor for upper airways narrowing, Treated with epinephrine neb Pulm following [id number] lung cancer with 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, diagnosed 12/2022 Received radiation treatments at [facility], and started on chemotherapy with Dr. Centeno this past Wednesday04/12/2023. Heme/Onc following Leukocytosis likely d/t Neulasta injection, steroid use Lactic acidosis, resolved Elevated troponin Patient asymptomatic, EKG negative for ST elevations or depressions Most likely type 2 in the setting of demand ischemia HTN Continue metoprolol Chronic lower leg edema Continue home Lasix Full Code DVT Prophylaxis: Lovenox reason for continued hospitalization:yeni grady Time Spent With Patient Time: Total time managing care of this patient today ____ minutes. Quality Stroke Does the patient have a stroke diagnosis?: No VTE Prior VTE?: No VTE Risk Level:: Medical - moderate - high VTE Device Contraindication: Treatment Not Indicated VTE Drug Contraindication: N/A - Med Ordered
--- NOTE | 2023-04-22 10:28 | MHC.CM.PN ---
CM met with Patient at bedside and spoke with Daughter/HCP/Audrey @[phone] regarding dc planning. Ultimate goal is home with [facility]; PT is recommending STR and Patient and Daughter are agreeable to a SNF search ([facility] choice). CM has initiated SNF search and will continue to follow.
--- NOTE | 2023-04-22 12:46 | MHC.SL.SWA ---
Speech Pathologist Impression: Risk of Aspiration Due to: Medically Fragile History of Pneumonia Dysphasia Diet Status: Recommend patient continue on Ground/Mechanical (NDD2) with THIN liquids, no straws, pills crushed in puree. Liquid Consistency and Strategies for Safe Swallow: Liquid Intake Recommendation: Thin Liquid Intake Strategies: Small Sips No Straws Solid Food Consistency: Dietary Recommendations: Grnd/Mech Altered (NDD2) for ease of mastication, THIN liquids, pills CRUSHED in PUREE. Pt is deemed to be at increased risk of aspiration, thus is recommended STRICT precautions: -oral care before first meal and after each subsequent meal -liquids via teaspoon or controlled cup -NO STRAWS -individual sips/bites -very small sips/bites -ensure oral cavity is cleared before taking next bite/sip -upright 90 degree position during PO intake and for at least 30 minutes afterwards Recommend total 1:1 supervision and close monitoring of pt's tolerance of PO. Hold tray if pt is lethargic, respiratory status is compromised, or pt is having increasing difficulty with PO intake. P Oral Medication Intake: Crushed with Puree Please contact the pharmacy regarding appropriate crushable or liquid drug formulations that are available whenever modified delivery is recommended. Compensatory Strategies and Precautions to be Taken for Safe Swallow: Sitting Upright (90 deg) Double Swallow No Straw Liquids from Cup Small Bites and Sips Alternate Liquids/Solids Supervision While Eating and Drinking for Safe Swallow: Total Supervision (1:1) Foods to Avoid: Hard, tough to chew solids; sticky foods; mixed textures Swallowing Recommended Treatments: Compens. Strategy Educat. Recommendation for Speech: Inpatient Speech Therapy Comment: Patient seen during lunch on this day. Patient was seen for MBSS study yesterday, 04/21/23, with results indicating a disorganized oral phase of swallow on more advanced solids, mild pharyngeal residual on solids cleared by re-swallow, sips of liquid, and risk of aspiration thin liquid if taken by straw (flash laryngeal penetration seen on study). Patient's diet was downgraded as a result of the study to Chopped/Advanced (NDD2) with Thin liquids by cup sip only (no straw). Upon entering room today, patient was seated upright in bed, feeding self with food tray in front of her and a friend present in the room. HOSPICE CARE SALES CONSULTANT reviewed findings of MBSS and noted that patient should not be using a straw (several present but unopened, however one was in a cup with water on lunch tray. Patient reported that she understood that she needed to drink from a cup or container, that she needed to swallow twice on bites of food, and that she should alternate liquids and solids. Patient was observed eating meal of chopped chicken with puree vegetables (carrots and potatoes), gravy and various juices and diet sodas. Patient was able to feed self, was noted to take reasonable size bites of the food, and to take sips of liquid alternately. Patient evidenced no clinical signs of aspiration during period of observation. Patient expressed satisfaction with current diet. Recommend patient continue on Ground/Mechanical (NDD2) with THIN liquids, no straws, pills crushed in puree. White board altered so that NO STRAWS was more prominent. Frequency/Duration: PRN Date Range for Service Req: Timeline to reassess: 3 months Process Control Supervisor Clinican/Clinical Fellow: No Supervisory Statement: I have reviewed and agree with the student/clinical fellow's documentation: N/A Speech Language Pathologist: Winnie Damon M.A., CCC-HOSPICE CARE SALES CONSULTANT
[2023-04-22] MEDS: Azithromycin 500 MG TABLET PO (17:16)
[2023-04-22] MEDS: Albuterol Sulfate 90 MCG 8 GM INHALER 2 PUFF INHALE (18:09)
[2023-04-22] MEDS: Folic Acid 1 MG TABLET PO (20:14)
[2023-04-22] MEDS: 0.9 % Sodium Chloride Flush 3 ML SYRINGE IVFLUSH (20:18)
[2023-04-23] MEDS: Acetaminophen 325 MG TABLET 650 MG PO ×2 (01:55→08:34)
[2023-04-23 03:28] VITALS: BP 145/66; PULSE 85; RESP 22; TEMP 37.2; O2SAT 94
[2023-04-23] MEDS: Omeprazole 40 MG CAPSULE.DR PO (05:59)
[2023-04-23 07:36] VITALS: BP 159/65; PULSE 79; RESP 12; TEMP 36.6; O2SAT 91
[2023-04-23] MEDS: Multivitamin TABLET 1 TAB PO (08:32)
[2023-04-23] MEDS: Furosemide 20 MG TABLET PO (08:32)
[2023-04-23] MEDS: 0.9 % Sodium Chloride Flush 3 ML SYRINGE IVFLUSH (08:33)
[2023-04-23] MEDS: Sucralfate 1 GM TABLET PO ×2 (08:33→11:23)
[2023-04-23] MEDS: dexAMETHasone 2 MG TABLET PO (08:33)
[2023-04-23] MEDS: dilTIAZem HCL CD 240 MG CAP.ER.DEG PO (08:33)
[2023-04-23] MEDS: guaiFENesin DM 200/20/10 ML 10 ML SYRUP PO (08:34)
--- NOTE | 2023-04-23 08:37 | HO.PM.IMPN ---
Subjective Subjective Date of Service: 04/23/23 Interval History: a bit better today Physical Exam Vital Signs: Vital Signs: Last Vital Signs Temp 97.9 F 04/23/23 07:36 Pulse 79 04/23/23 07:36 Resp 12 04/23/23 07:36 BP 159/65 H 04/23/23 07:36 Pulse Ox 91 L 04/23/23 07:36 O2 Del Method Nasal Cannula 04/23/23 07:36 O2 Flow Rate 3 04/23/23 07:36 BMI result Body Mass Index 22.6 Const: Other: Constitutional : Awake, interactive, in mild respiratory distress w tachypnea Neck : Normal inspection, Supple Cardiovascular : RRR, no JVP, no lower extremity edema Respiratory : decreased bilateral air entry, basal bilateral crackles, scattered expiratory wheezes, on O2 supplement Gastrointestinal: soft, lax, Normal bowel sounds, Non tender Skin : Warm, Dry Neurological : Alert & oriented x3, No focal deficit Objective Data Active Medications Acetaminophen (Acetaminophen 325 Mg Tablet) 650 mg PO Q6H PRN PRN Reason: Pain, Mild (Pain Scale 1-3) Last Admin: 04/23/23 08:34 Dose: 650 mg Documented By: CAYETANO Albuterol Sulfate (Albuterol Sulfate 90 Mcg 8 Gm Inhaler) 2 puff INHALE RQ6H PRN PRN Reason: Shortness of Breath/Wheezing Last Admin: 04/22/23 18:09 Dose: 2 puff Documented By: ARIN Azithromycin (Azithromycin 500 Mg Tablet) 500 mg PO Q24H [facility] Last Admin: 04/22/23 17:16 Dose: 500 mg Documented By: DEJON Cefuroxime Axetil (Cefuroxime Axetil 500 Mg Tablet) 500 mg PO Q12H [facility] Last Admin: 04/23/23 05:59 Dose: 500 mg Documented By: CATE Dexamethasone (Dexamethasone 2 Mg Tablet) 2 mg PO DAILY [facility] Last Admin: 04/23/23 08:33 Dose: 2 mg Documented By: CAYETANO Diltiazem HCl (Diltiazem Hcl Cd 240 Mg Cap.Er.Deg) 240 mg PO DAILY [facility]; Protocol Last Admin: 04/23/23 08:33 Dose: 240 mg Documented By: CAYETANO Docusate Sodium (Docusate Sodium 100 Mg Capsule) 100 mg PO DAILY PRN PRN Reason: Constipation Epinephrine (Racepinephrine Hcl 0.5 Ml Vial.Neb) 0.5 ml INHALE Q4H PRN PRN Reason: Stridors Folic Acid (Folic Acid 1 Mg Tablet) 1 mg PO BEDTIME [facility] Last Admin: 04/22/23 20:14 Dose: 1 mg Documented By: CATE Furosemide (Furosemide 20 Mg Tablet) 20 mg PO DAILY [facility]; Protocol Last Admin: 04/23/23 08:32 Dose: 20 mg Documented By: CAYETANO Guaifenesin (Guaifenesin La 600 Mg Tab.Er.12h) 1,200 mg PO BID PRN PRN Reason: cough Last Admin: 04/21/23 18:05 Dose: 1,200 mg Documented By: JIA Guaifenesin/Dextromethorphan (Guaifenesin Dm 200/20/10 Ml 10 Ml Syrup) 10 ml PO Q4H PRN PRN Reason: Congestion Last Admin: 04/23/23 08:34 Dose: 10 ml Documented By: CAYETANO Loperamide HCl (Loperamide Hcl 2 Mg Capsule) 2 mg PO Q4H PRN PRN Reason: Diarrhea Last Admin: 04/19/23 17:01 Dose: 2 mg Documented By: DEJON Multivitamins/Vitamin C (Multivitamin Tablet) 1 tab PO DAILY [facility] Last Admin: 04/23/23 08:32 Dose: 1 tab Documented By: CAYETANO Omeprazole (Omeprazole 40 Mg Capsule.Dr) 40 mg PO DAILY@0630 [facility] Last Admin: 04/23/23 05:59 Dose: 40 mg Documented By: CATE Ondansetron HCl (Ondansetron Hcl 4 Mg/2 Ml Vial) 4 mg IVPUSH Q8H PRN PRN Reason: Nausea and Vomiting Ondansetron HCl (Ondansetron Odt 4 Mg Tab.Rapdis) 4 mg TRANSLINGU Q6H PRN PRN Reason: Nausea and Vomiting Last Admin: 04/21/23 22:33 Dose: 4 mg Documented By: TIAGO Oxycodone HCl (Oxycodone Hcl Immed Release 5 Mg Tablet) 5 mg PO Q8H PRN PRN Reason: Pain, Moderate(Pain Scale 4-6) Last Admin: 04/21/23 02:36 Dose: 5 mg Documented By: AALIYAH Sodium Chloride (0.9 % Sodium Chloride Flush 3 Ml Syringe) 3 ml IVFLUSH QSHIFT [facility] Last Admin: 04/23/23 08:33 Dose: 3 ml Documented By: CAYETANO Sucralfate (Sucralfate 1 Gm Tablet) 1 gm PO QIDACHS [facility] Last Admin: 04/23/23 08:33 Dose: 1 gm Documented By: CAYETANO Labs 04/22/23 05:22 04/22/23 05:22 Assessment and Plan (1) GI bleed: Status: Acute (2) Acute on chronic blood loss anemia: Status: Acute (3) Atrial fibrillation, new onset: Status: Acute (4) Metastasis to brain: Status: Acute (5) Swallowing problem: Status: Acute (6) Respiratory failure: Status: Acute (7) Pneumonia: Status: Acute Plan 82F PMH significant for?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, COPD not on home O2, and HTN who presented to the ED with?with worsening shortness of breath, wheezing and productive cough Acute respiratory failure 2/2 sepsis with Metastatic lung cancer, COPD exacerbation, pneumonia CTA negative for PE but showed patchy opacity in the superior segment of right lower lobe restarted Dexamethasone 2 mg daily Nebulizers PRN Continue azithromycin and Ceftin Wean down O2 as tolerated Pulmonology input appreciated New onset Afib w RvR back to sinus ECHO w EF 60-65% w LVH Cardiology input, change Metoprolol to Cardizem for wheezing, now on 240mg daily with brain metastasis cardio opt to hold on any blood thinners Acute on chronic blood loss anemia 2/2 GIB +ve occult Drop in Hb from 12.7 to about 9 Continuepo ppi Hold any blood thinners GI eval appreciated , hold on EGD unless drop in Hb follow H&H - stable Swallowing problem RN CVOR eval rec NDD2 with thins, swallowing improving with improving clinical condition Stridor for upper airways narrowing, Treated with epinephrine neb Pulm following [id number] lung cancer with 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, diagnosed 12/2022 Received radiation treatments at [facility], and started on chemotherapy with Dr. Centeno 04/12/2023. Heme/Onc following Leukocytosis likely d/t Neulasta injection, steroid use Lactic acidosis, resolved Elevated troponin Patient asymptomatic, EKG negative for ST elevations or depressions Most likely type 2 in the setting of demand ischemia HTN Continue metoprolol Chronic lower leg edema Continue home Lasix Full Code DVT Prophylaxis: Lovenox reason for continued hospitalization:safe dispo Time Spent With Patient Time: Total time managing care of this patient today ____ minutes. Quality Stroke Does the patient have a stroke diagnosis?: No VTE Prior VTE?: No VTE Risk Level:: Medical - moderate - high VTE Device Contraindication: Treatment Not Indicated VTE Drug Contraindication: N/A - Med Ordered
--- NOTE | 2023-04-23 08:42 | P.DS_ITS ---
DS: Providers Provider Date of Service: 04/23/23 Date of admission: 04/15/23 12:14 Primary care physician: Nicolas Asif MD Consults: 04/15/23 12:19 Consult to Hematology / Oncology Routine Consulting Provider: Isela Centeno Reason for consultation: Pt on chemo for met lung cancer, increased SOB 04/15/23 14:21 Consult to Pulmonology Routine Consulting Provider: [facility] [place] Pulmonology Services Reason for consultation: Pt with mets lung cancer w/ incrased SOB 04/17/23 09:35 Consult to Cardiology Routine Consulting Provider: [facility] [place] Cardiovascular Services Reason for consultation: New onset Afib w RvR 04/18/23 09:55 Consult to Gastroenterology Routine Consulting Provider: Herbert Strong Reason for consultation: GIB , need of AC for Afib. 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 Patient states yesterday her breathing gradually got worse to the point last night where she simply ?could not breathe. Reports increased fatigue and that she ?feels terrible.? Patient also complains of lower back pain that she has been experiencing since laying on the table for radiation treatment. Has had chronic lower leg swelling has seems ab out baseline. Cough is productive of yellowish sputum. Of note, patient received radiation treatments at [facility], and started on chemotherapy with Dr. Centeno this past Wednesday04/12/2023. Patient is also recently received Neulasta injection. Denies chest pain/pressure, palpitations. No fever, chills, nausea or vomiting. In the ED patient was afebrile but tachycardic up to 100 and tachypneic up to 23, slightly hypertensive at 149/62, and satting at 98% on RA. Labs were significant for leukocytosis of 41.4 (elevated from 25.6 one week prior), lactic acid 2.6, AST 32, ALT 58, alk-phos 181, initial troponin 17.8 with repeat flat at 16.2, D-dimer elevated at 1181.. Electrolytes WNL. Renal function baseline. BNP negative at 78. Nasal screen for MRSA, Staph aureus negative. Respiratory viral panel negative. CXR showed a right perihilar and upper lung opacity consistent with known tumor, which showed developing process in the left and left base consistent with atelectasis/infiltrate. Chest CT negative for PE, aortic dissection, or aneurysm. Did not find any significant change in the large right upper lobe mass with likely direct extension to the right mediastinum, but did find abnormal metastatic subcarinal and precarinal lymphadenopathy. Patchy opacity in the superior segment of right lower lobe similar to previous study. Other findings include chronic T7 vertebral fracture and new superior endplate deformity of L1 vertebra likely acute. Also demonstrated heterogeneous left kidney mass. EKG demonstrated sinus rhythm with PVCs at 99 B p.m. Pt was treated with DuoNebs, Solu-Medrol, cefepime and azithromycin, and IVF. Pt will be admitted to the hospital for acute respiratory failure in the setting of metastatic lung cancer, COPD exacerbation and possible pneumonia. hospital course: Patient was admitted for acute hypoxic respiratory failure secondary to sepsis with metastatic lung cancer, COPD exacerbation, pneumonia. Patient was treated with steroids, bronchodilators, ceftriaxone and azithromycin. Her symptoms improved slowly and was transitioned to p.o. dexamethasone and Ceftin and azithromycin. Noted to have new onset AFib with rapid ventricular response likely due to acute illness. Metoprolol was changed to diltiazem a due to wheezing. Patient converted to sinus rhythm. No anticoagulation due to brain Mets. Course was complicated by acute on chronic blood loss anemia, suspected GI bleed. Hemoglobin dropped from 12.7 to about 9. Was treated with PPI and Carafate. EGD was deferred due to high risk. For dysphagia was seen by CORE MACHINE TENDER who recommended ndd2 solids and thin liquids. For non-small cell lung cancer with 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 patient is following with Dr. Centeno of Heme-Onc. Her hypertension was changed from metoprolol to diltiazem, for chronic lower extremity edema is continue on Lasix. Patient will be discharged to [facility] facility. Time Spent with Patient Time attestation: Total time managing care of this patient today ____ minutes. Discharge coordination time: Greater than 30 minutes Quality: Safe Use of Opioids Does Pt have an Active Cancer Diagnosis on the Problem List?: Yes Opioid Measure Date for [facility] Report: 03/24/23 Opioid Measure Time for [facility] Report: 10:55 Quality: Stroke Does the patient have a stroke diagnosis?: No Physical Exam Vital Signs: Vital Signs: Last Vital Signs Temp 97.9 F 04/23/23 07:36 Pulse 79 04/23/23 07:36 Resp 12 04/23/23 07:36 BP 159/65 H 04/23/23 07:36 Pulse Ox 91 L 04/23/23 07:36 O2 Del Method Nasal Cannula 04/23/23 07:36 O2 Flow Rate 3 04/23/23 07:36 BMI result Body Mass Index 22.6 alert, frail appearing, no acute distress Discharge Plan Discharge Anticipated Discharge Date/Time: 04/23/23 08:39 Patient Disposition: Xfer SNF Discharge Diagnosis: pneumonia, anemia Referrals: Nicolas Asif MD [Primary Care Provider] - 1 Week Discharge Medications: New diltiazem HCl 240 mg Capsule,Extended Release 24hr 240 mg PO DAILY Qty: 0 0RF Protocol: Hold for SBP/HR < HOLD for SBP < : 90 HOLD for HR < : 60 sucralfate 1 gram Tablet 1 g PO QIDACHS Qty: 0 0RF cefuroxime axetil 500 mg Tablet 500 mg PO Q12H Qty: 0 0RF azithromycin 500 mg Tablet 500 mg PO Q24H Qty: 0 0RF Continued albuterol sulfate 2.5 mg /3 mL (0.083 %) solution for nebulization 2.5 mg inhalation Q6H PRN (Reason: wheezing) omeprazole 20 mg capsule,delayed release(DR/EC) 20 mg PO DAILY@0630 folic acid 1 mg tablet 1 mg PO BEDTIME oxycodone 5 mg Tablet 5 mg PO Q8H PRN (Reason: Pain) Qty: 30 0RF Rx Instructions: Partial Fill upon patient request. dexamethasone 2 mg Tablet 2 mg PO DAILY Qty: 30 0RF Rx Instructions: START 04/16/23 sodium chloride 3 % solution for nebulization 4 ml inhalation TID PRN (Reason: sputum production) multivitamin Tablet 1 tab PO DAILY acetaminophen [Tylenol] 325 mg Tablet 650 mg PO Q6H PRN (Reason: Pain) dextromethorphan-guaifenesin 10-200 mg/5 mL Liquid 10 ml PO Q4H PRN (Reason: Congestion) furosemide [Lasix] 20 mg tablet 20 mg PO DAILY Discontinued metoprolol succinate 50 mg tablet extended release 24 hr 50 mg PO BEDTIME dexamethasone 4 mg tablet 4 mg PO ONCE Rx Instructions: 04/15/23 ONLY Discharge Orders: Discharge Order (Routine); Ordered 04/23/23 Ordered By: Adelso Leonard Diet: ndd2 solids Activity on Discharge: As tolerated Stand Alone Forms: Patient Portal Discharge page Care Plan Goals: avoid hospitalizations Health Concerns: pneumonia, cancer Plan of Treatment: 5 more days amada Assessment: see above
[2023-04-23 11:07] VITALS: BP 145/60; PULSE 85; RESP 16; TEMP 36.1; O2SAT 97
--- NOTE | 2023-04-23 12:01 | MHC.CM.PN ---
Second IMM give 04/23. Pt is medically cleared for D/C to STR at [facility] on [address]. Transport set up via BLS/Sarah at 1pm today.
--- NOTE | 2023-04-23 12:31 | MHC.SLORD ---
Speech Language Pathology Order Status: Attempted to see patient; sound asleep. Removed straw in drink on patient's tray; spoke w/ RN and FOUR CORNER STAYER MACHINE OPERATOR on floor regarding no straw recommendation. Per conversation w/ RN, no concerns for toleration of diet recommendations, tolerating pills crushed in applesauce.
== END 2023-04-23 13:01 | disposition skilled nursing facility (03) | DRG 871 ==
LOC: HO.ED 09:52 → HO.EDOVER 12:31 → HO.S3 13:10 → HO.IMC 17:42
PROVIDERS: Internal Medicine; Student in an Organized Health Care Education/Training Program; Admitting Provider Student in an Organized Health Care Education/Training Program; Emergency Provider Emergency Medicine; PCP Internal Medicine; Visit Provider Internal Medicine
DX: A41.9 Sepsis, unspecified organism (principal); J18.9 Pneumonia, unspecified organism; J96.01 Acute respiratory failure with hypoxia; C34.91 Malignant neoplasm of unspecified part of right bronchus or lung; C79.31 Secondary malignant neoplasm of brain; C79.02 Secondary malignant neoplasm of left kidney and renal pelvis; C79.72 Secondary malignant neoplasm of left adrenal gland; J44.0 Chronic obstructive pulmonary disease with (acute) lower respiratory infection; J44.1 Chronic obstructive pulmonary disease with (acute) exacerbation; E87.20 Acidosis, unspecified; E87.0 Hyperosmolality and hypernatremia; D62 Acute posthemorrhagic anemia; I24.8 Other forms of acute ischemic heart disease; L89.322 Pressure ulcer of left buttock, stage 2; D63.0 Anemia in neoplastic disease; D64.81 Anemia due to antineoplastic chemotherapy; T45.1X5A Adverse effect of antineoplastic and immunosuppressive drugs, initial encounter; L89.312 Pressure ulcer of right buttock, stage 2; I10 Essential (primary) hypertension; Z20.822 Contact with and (suspected) exposure to COVID-19; Z87.891 Personal history of nicotine dependence; Z79.899 Other long term (current) drug therapy
CPT/HCPCS: 36415; 71045; 71275; 74230; 80048; 80076; 82272; 82803; 82947; 83605; 83690; 83735; 83880; 84145; 84443; 84484; 85007; 85027; 85379; 87040; 87493; 87633; 87640; 87641; 92526; 92610; 92611; 93005; 93306; 94640; 97116; 97162; 99285; J0456; J0692; J0696; J1160; J1650; J2060; J2270; J2543; J2920; J2930; J8540; Q9957; Q9967

== ENCOUNTER 2023-04-15 12:14 | Outpatient (BNV) | payer MEDICARE, SELFPAY | END 2023-04-21 13:07 | PROVIDERS: Admitting Provider Student in an Organized Health Care Education/Training Program; Emergency Provider Emergency Medicine; PCP Internal Medicine; Visit Provider Radiology Diagnostic Radiology | DX: R13.10 Dysphagia, unspecified (principal) | CPT/HCPCS: 74230 ==

== ENCOUNTER 2023-04-15 12:14 | Outpatient (BNV) | payer MEDICARE, SELFPAY | END 2023-04-19 07:00 | PROVIDERS: Admitting Provider Student in an Organized Health Care Education/Training Program; Emergency Provider Emergency Medicine; PCP Internal Medicine; Visit Provider Internal Medicine Cardiovascular Disease | DX: I48.91 Unspecified atrial fibrillation (principal) | CPT/HCPCS: 93306 ==

== ENCOUNTER → 2023-04-15 12:14 | Outpatient (BNV) | payer MEDICARE, SELFPAY | PROVIDERS: Admitting Provider Student in an Organized Health Care Education/Training Program; Emergency Provider Emergency Medicine; PCP Internal Medicine; Visit Provider Internal Medicine | DX: C34.01 Malignant neoplasm of right main bronchus (principal); C79.31 Secondary malignant neoplasm of brain | CPT/HCPCS: 99222; 99231 ==

== ENCOUNTER → 2023-04-15 12:14 | Outpatient (BNV) | payer MEDICARE, SELFPAY | PROVIDERS: Admitting Provider Student in an Organized Health Care Education/Training Program; Emergency Provider Emergency Medicine; PCP Internal Medicine; Visit Provider Student in an Organized Health Care Education/Training Program | DX: I48.91 Unspecified atrial fibrillation (principal); C79.31 Secondary malignant neoplasm of brain; J96.01 Acute respiratory failure with hypoxia; K92.2 Gastrointestinal hemorrhage, unspecified; D62 Acute posthemorrhagic anemia; R13.10 Dysphagia, unspecified; J18.9 Pneumonia, unspecified organism | CPT/HCPCS: 99223; 99232; 99233; 99239; 99499 ==

== ENCOUNTER → 2023-04-15 12:14 | Outpatient (BNV) | payer MEDICARE, SELFPAY | PROVIDERS: Admitting Provider Student in an Organized Health Care Education/Training Program; Emergency Provider Emergency Medicine; PCP Internal Medicine; Visit Provider Hospitalist | DX: J96.90 Respiratory failure, unspecified, unspecified whether with hypoxia or hypercapnia (principal); C34.90 Malignant neoplasm of unspecified part of unspecified bronchus or lung; J44.1 Chronic obstructive pulmonary disease with (acute) exacerbation; J18.9 Pneumonia, unspecified organism; R06.1 Stridor | CPT/HCPCS: 99223; 99233 ==

== ENCOUNTER → 2023-04-15 12:14 | Outpatient (BNV) | payer MEDICARE, SELFPAY | PROVIDERS: Admitting Provider Student in an Organized Health Care Education/Training Program; Emergency Provider Emergency Medicine; PCP Internal Medicine; Visit Provider Internal Medicine | DX: I48.91 Unspecified atrial fibrillation (principal); J96.90 Respiratory failure, unspecified, unspecified whether with hypoxia or hypercapnia; C34.90 Malignant neoplasm of unspecified part of unspecified bronchus or lung; C79.31 Secondary malignant neoplasm of brain | CPT/HCPCS: 99223 ==

== ENCOUNTER → 2023-04-15 12:14 | Outpatient (BNV) | payer MEDICARE, SELFPAY | PROVIDERS: Admitting Provider Student in an Organized Health Care Education/Training Program; Emergency Provider Emergency Medicine; PCP Internal Medicine; Visit Provider Internal Medicine Gastroenterology | DX: D62 Acute posthemorrhagic anemia (principal) | CPT/HCPCS: 99223 ==

== ENCOUNTER 2023-04-27 21:34 | Inpatient (IN) | payer MEDICARE, SELFPAY ==
--- NOTE | 2023-04-27 | ECG_ITS ---
Test Reason : PNEUMONIA Blood Pressure : / mmHG Vent. Rate : 090 BPM Atrial Rate : 090 BPM P-R Int : 112 ms QRS Dur : 088 ms QT Int : 342 ms P-R-T Axes : 010 018 031 degrees QTc Int : 418 ms Sinus rhythm with Premature atrial complexes Otherwise normal ECG When compared with ECG of 15-APR-2023 23:03, Premature atrial complexes are now Present Referred By: Generic ED Physician Electronically Signed By:EARL MEDINA
--- NOTE | ~2023-04-27 | XR_ITS ---
EXAMINATION: XR CHEST CLINICAL INFORMATION: Shortness of breath. Concern for pneumonia. COMPARISON: 04/17/2023 TECHNIQUE: Frontal view of the chest was obtained. FINDINGS: The cardiomediastinal silhouette is stable. Significant right hilar enlargement is again seen. There is diffuse increased markings apparently extending from the jon similar to previous. There is no new consolidation or evidence for significant pleural effusion. A Mediport is noted in a stable position. An apparent right bronchial stent is noted. The bony structures are osteopenic. The soft tissues are unremarkable. XR/XR chest 1V IMPRESSION: 1. Significant enlargement of the right hilum again seen. 2. Diffuse increased markings extending from the jon essentially unchanged compared to previous. 3. No new focal consolidation or pleural effusion.
--- NOTE | ~2023-04-27 | CT_ITS ---
EXAMINATION: CT CHEST WITHOUT CONTRAST CLINICAL INFORMATION: Pneumonia. History of lung cancer. COMPARISON: 04/15/2023 TECHNIQUE: Multidetector volumetric CT imaging of the chest was done. Axial MIP volume rendering provided. Sagittal and coronal reformatted images were obtained. This CT examination was performed using dose optimization techniques as appropriate, variously including the following: *Automated exposure control *Adjustment of mA and/or kV according to patient size (this includes techniques or standardized protocols for targeted exams where dose is matched to indication/reason for exam; i.e. extremities or head) *Use of iterative reconstruction technique DLP: 186 mGy-cm FINDINGS: FURNITURE DETAILER: There is a large right perihilar opacity. LUNGS: There is diffuse emphysematous change. There is a large right perihilar/upper lobe opacity measuring up to 10 cm likely related to pulmonary mass with associated atelectasis similar to prior. The right mainstem bronchial stent is noted. There is opacification of the inferior aspect of the stent. There is a large right perihilar infiltrate extending into the upper lobe as well as right middle lobes. There is left perihilar groundglass infiltrative change associated with interstitial coarsening. There is a small superior segment left lower lobe infiltrate. MEDIASTINUM: Enlarged mediastinal lymph nodes are again seen measuring up to 3.8 cm in the subcarinal region. CORONARY ARTERY CALCIFICATION: Moderate.. PLEURA: There is a small right and a minimal left pleural effusion. AXILLA: No lymphadenopathy. UPPER ABDOMEN: Gallstones are noted. There is a 1.8 cm intermediate density structure upper pole left kidney possibly a hemorrhagic cyst. There is a 1.6 cm low-density left adrenal nodule. OSSEOUS STRUCTURES: The bony structures are osteopenic. There is a stable T7 compression fracture. There is an L1 compression fracture which has progressed compared to previous with over 50% central compression. CT/CT chest wo IV con IMPRESSION: Emphysema. Stable right upper lobe/perihilar mass with likely associated upper lobe atelectasis. Right bronchial stent with complete opacification of the inferior aspect of the stent. Large right perihilar infiltrate extending into the right upper, right lower and right middle lobes most consistent with pneumonia/post obstructive pneumonia. Left perihilar groundglass infiltrative change with minimal similar infiltrative change superior segment left lower lobe. An infectious process also suspected. Progression of L1 compression fracture. Stable T7 compression fracture. Fleischner guidelines were followed.
[2023-04-27 21:37] VITALS: BP 113/74; PULSE 97; O2SAT 94
[2023-04-27 21:42] VITALS: BP 113/74; BP 121/57; PULSE 72; PULSE 97; RESP 18; TEMP 37.4; O2SAT 90; O2SAT 94; BMI 18.6
--- NOTE | 2023-04-27 22:27 | PC.NURSE ---
[facility] and oriented, in no apparent distress. EMS reports that pts vitals and labs were unstable and provider was concerned for possible sepsis. Patient has a history of lung cancer with mets to brain and kidney. Will be going into hospice at home after rehab. Family at bedside report that pt was experiencing arrhythmias as well and a high white count they note she has a hx of COPD, and unsure about a an official afib diagnosis. She is not on any blood thinners. Labs drawn, vital signs stable- 99.4 rectal temp, hr 72, rr18, bp 121/57 (72), o2 90% on 3 L- when increased to4l o2 at 97%, ekg completed, placed on cafeteria monitor
[2023-04-27 23:03] LABS: Hematocrit 25.9 % (37.0-47.0); Hemoglobin 8.6 g/dl (12.0-16.0); Mean Corpuscular HGB Conc 33.2 g/dl (31.0-35.0); Mean Corpuscular Hemoglobin 32.5 pg (27.0-33.0); Mean Corpuscular Volume 97.7 fL (80.0-98.0); Mean Platelet Volume 10.9 fL (9.4-12.3); NRBC Pct Auto 0.2 /100WBC (0.0-0.2); Platelet Count 220 X10*3/uL (160-400); Red Blood Count 2.65 X10*6/uL (4.20-5.50); Red Cell Distribution Width 18.3 % (11.0-16.0)
[2023-04-27 23:06] LABS: INTERNATIONAL NORM RATIO 0.9 (0.9-1.1); Prothrombin Time 11.3 SEC (11.1-13.3)
[2023-04-27 23:07] LABS: WBC ABN SCTR FOR CBC 1
[2023-04-27 23:10] LABS: Partial Thromboplastin Time 22.9 SEC (26.0-36.4)
[2023-04-27 23:11] LABS: Lactic Acid 1.9 mmol/L (0.5-2.0)
[2023-04-27 23:13] LABS: White Blood Count 62.5 X10*3/uL (4.8-10.8)
[2023-04-27 23:20] LABS: Alanine Aminotransferase 43 U/L (0-31); Albumin Level 2.6 g/dL (3.5-5.0); Alkaline Phosphatase 235 U/L (39-117); Anion Gap 14 (12-20); Aspartate Amino Transferase 38 U/L (5-31); Bilirubin Total 0.3 mg/dL (0.0-1.0); Blood Urea Nitrogen 39 mg/dL (9-16); Calcium 9.3 mg/dL (8.4-10.2); Carbon Dioxide 29 mmol/L (22-29); Chloride 105 mmol/L (96-108); Creatinine Clr Calc Pharmacy 58.1; Estimated Glomerular Filt Rate > 60; Glucose Random 111 mg/dL (60-115); Potassium 3.9 mmol/L (3.3-5.1); Sodium 144 mmol/L (135-145); Total Protein 5.2 g/dL (6.5-8.0)
[2023-04-27 23:22] LABS: Band Neutrophils Percent 5 % (3-5); Lymphocytes Absolute Manual 1.3 X10*3/uL (1.2-4.9); Lymphocytes Percent Manual 2 % (20-40); Metamyelocytes Absolute 1.9 X10*3/uL; Metamyelocytes Percent 3 %; Monocytes Absolute Manual 1.3 X10*3/uL (0.1-1.2); Monocytes Percent Manual 2 % (2-11); Myelocytes Absolute 1.9 X10*/uL; Myelocytes Percent 3 %; Neutrophils Absolute Manual 56.3 X10*3/uL (2.0-8.3); Neutrophils Percent Manual 85 % (45-73)
[2023-04-27 23:23] LABS: Troponin-I High Sensitivity 44.7 ng/L (<3.5-17.0)
[2023-04-27 23:24] LABS: Dohle Bodies PRESENT
[2023-04-27 23:25] LABS: Platelet Estimate NORMAL (NORMAL)
[2023-04-27 23:26] LABS: Platelet Morphology Comment NORMAL
[2023-04-27 23:28] LABS: RBC Morphology NORMAL; Toxic Vacuolation PRESENT
--- NOTE | 2023-04-27 23:30 | PC.NURSE ---
This RN spoke with Dasha with [facility] at rehab. She states she was sent for unstable vitals and elevated white count. Today her BP at 4pm was 94/73, ad 70/57, and every time she was repositioned it continued to change either high or low. Pulse ranged from 157-58. Patien treated here for pneumonia on 04/15 she was admitted, and discharge to SNF on the 04/23. Pt has completed 4 of 5 days of her abx treatment. [facility] states that pts labs showed shift in WBC 38.1 to 49.9 shift, rbc 2.0, H/H 9.4 & 29.2 ?HX lung cancer with mets to brain and kidney. Pt is incontinent of both bowel and bladder, had a bm today. No [place]. Port to right chest for chemo tx which was d/c'd recetly- dated unknown. Plan is for rehab for 20 days and then she is going home to hospice, but she is a full code.??
--- NOTE | 2023-04-27 23:32 | MHC.EDTECH ---
Chicken salad sandwich and gingerale given to PT
--- NOTE | 2023-04-27 23:42 | ED_ITS ---
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 to brain kidney COPD not on home oxygen hypertension make admitted for acute hypoxic respiratory failure secondary to sepsis with pneumonia when she was admitted here on 04/15 discharged on 04/23, blood work WBC count at the time of admission was 41,000 and at that time she was on Decadron and Neulasta was given on 04/12 currently patient is on Decadron 2 mg daily she was [facility]23 labs done on 04/22 showed WBC count of 10.4 left done at [facility] was 48,000 and here 62.5 and she has not received any more Neulasta currently she is on Ceftin and Decadron 2 mg daily patient otherwise feels fine at [facility] patient noticed to have tachycardia possible AFib and transient hypotension on arrival here patient blood pressure was 121/57 pulse rate 72 temperature 99.4 degrees saturating 90% at 3 L patient feeling much better otherwise since discharge patient daughter visited couple of times and then noticed anything different patient denied any significant cough or vomiting no fever no chills Related Data Home Medications Medication Instructions Recorded Confirmed albuterol sulfate 2.5 mg/3 mL 2.5 mg inhalation Q6H PRN wheezing 03/08/23 04/15/23 (0.083 %) solution for nebulization folic acid 1 mg tablet 1 mg PO BEDTIME 03/08/23 04/15/23 omeprazole 20 mg capsule,delayed 20 mg PO DAILY@0630 03/08/23 04/15/23 release acetaminophen 325 mg tablet 650 mg PO Q6H PRN Pain 04/15/23 04/15/23 (Tylenol) dextromethorphan-guaifenesin 10 10 ml PO Q4H PRN Congestion 04/15/23 04/15/23 mg-200 mg/5 mL oral liquid furosemide 20 mg tablet (Lasix) 20 mg PO DAILY 04/15/23 04/15/23 multivitamin 1 tab PO DAILY 04/15/23 04/15/23 sodium chloride 3 % for 4 ml inhalation TID PRN sputum 04/15/23 04/15/23 nebulization production Previous Rx's Medication Instructions Recorded oxycodone 5 mg tablet 5 mg PO Q8H PRN Pain #30 tabs 04/09/23 dexamethasone 2 mg tablet 2 mg PO DAILY #30 tabs 04/12/23 azithromycin 500 mg tablet 500 mg PO Q24H #0 tabs 04/23/23 cefuroxime axetil 500 mg tablet 500 mg PO Q12H #0 tabs 04/23/23 diltiazem HCl 240 mg 240 mg PO DAILY #0 caps 04/23/23 capsule,extended release 24 hr sucralfate 1 gram tablet 1 g PO QIDACHS #0 tabs 04/23/23 Allergies Allergy/AdvReac Type Severity Reaction Status Date / Time meperidine [From Demerol] Allergy Unknown Unknown Verified 02/16/23 13:10 Review of Systems Review of Systems: Yes all other systems are reviewed and are negative COUNTS INCLUDE 234 BEDS AT THE [facility] Past Medical History Medical History Basal cell carcinoma Port-A-Cath in place (~02/03/23) Surgical History History of tonsillectomy S/P pulmonary artery branches stent placement (~2022) [place] teeth extracted Family History Family History Sister Thyroid cancer Breast cancer Kidney stone Father Rectal cancer Social History Social History Household Members: Children Housing: House Do you presently have visiting nurse or other home services: No Alcohol intake: former Patient Tobacco Use Status: Former Tobacco user Tobacco use type: Cigarette Smoked in Last 30 Days: No Use of substances other than those prescribed or required for medical reasons: No Advance Directives: No Advance Directives Information Provided: No service: No Current occupational status: retired Physical Exam ED Vital Signs: Vital Signs - 24 hr 04/27/23 21:42 04/28/23 00:03 04/28/23 00:29 Temperature 99.4 F 99.4 F 99.0 F Pulse Rate 72 72 86 Respiratory Rate 18 18 22 H Blood Pressure 121/57 L 121/57 L 136/65 Pulse Oximetry 90 L 90 L 95 Oxygen Delivery Method Nasal Cannula Nasal Cannula Nasal Cannula Oxygen Flow Rate 3 4 BMI result Body Mass Index 18.6 Appearance: Alert. Oriented X3. No acute distress. Eyes: PERRLA, No Nystagmus ENT: Pharynx normal. Oral Mucosa moist Neck: Normal inspection. Neck supple. CVS: Normal heart rate and rhythm. Pulses normal. Respiratory: No respiratory distress. Equal air entry bilateral, no wheezing/rales/rhonchi left anterior chest wall port+ Abdomen: Soft and nontender. Bowel sounds are present, no mass palpable, no CVA tenderness Skin: Skin warm and dry. Normal skin color. Normal skin turgor. Extremities: No lower extremity edema. No calf tenderness Neuro: Oriented X 3. No motor deficit. No sensory deficit.No cerebellar signs , cranial nerves II-XII intact Medications Administered Discontinued Medications Generic Name Dose Route Start Last Admin Trade Name Freq PRN Reason Stop Dose Admin Piperacillin Sod/Tazobactam 50 mls @ 100 mls/hr 04/28/23 00:29 04/28/23 01:18 Sod 3.375 gm/ Sodium Chloride IV 04/28/23 00:58 100 mls/hr ONCE ONE Administration Medical Decision Making Medical Decision Making [facility] Narrative: [facility] to [facility] for [facility] care but now they want to give her immunotherapy. Will admit patient here for leukocytosis likely from steroids versus rule out sepsis /bacteremia which check the labs and follow CT scan chest showed worsening ofright pleural effusion with post obstructive pneumonia specially the right side worsening from the previous CT scan on 04/15 will start patient on Zosyn final report of CT scan is pending hospitalist aware Differential Diagnosis Differential Diagnoses: The differential diagnosis associated with the presentation includes sepsis / leukemoid reaction/pneumonia Admission/Observation Consideration of admission/observation: Escalation of care including admission/observation considered Consult Healthcare Provider Management of the patient was discussed with: Hospitalist Lab Data [facility] Lab Attestation statement: I reviewed the patient's lab results. 04/27/23 22:47 04/27/23 22:47 Labs: Lab Results 04/27/23 04/27/23 04/27/23 Range/Units 22:47 22:47 22:47 WBC 62.5 H* (4.8-10.8) X10*3/uL RBC 2.65 L (4.20-5.50) X10*6/uL Hgb 8.6 L (12.0-16.0) g/dl Hct 25.9 L (37.0-47.0) % MCV 97.7 (80.0-98.0) fL MCH 32.5 (27.0-33.0) pg MCHC 33.2 (31.0-35.0) g/dl RDW 18.3 H (11.0-16.0) % Plt Count 220 D (160-400) X10*3/uL MPV 10.9 (9.4-12.3) fL Immature Gran % (Auto) Cancelled Neut % (Auto) Cancelled Lymph % (Auto) Cancelled [place] % (Auto) Cancelled Eos % (Auto) Cancelled Baso % (Auto) Cancelled Lymph # (Auto) Cancelled [place] # (Auto) Cancelled Eos # (Auto) Cancelled Baso # (Auto) Cancelled Abs Immat Gran (auto) Cancelled Absolute Neuts (auto) Cancelled Absolute Nucleated RBC 0.140 H (0.0-0.012) X10*3/uL Nucleated RBC % (auto) 0.2 (0.0-0.2) /100WBC Neutrophils % (Manual) 85 H (45-73) % Band Neutrophils % 5 (3-5) % Lymphocytes % (Manual) 2 L (20-40) % Monocytes % (Manual) 2 (2-11) % Metamyelocytes % 3 % Myelocytes % 3 % Abs Neuts (Manual) 56.3 H (2.0-8.3) X10*3/uL Lymphocytes # (Manual) 1.3 (1.2-4.9) X10*3/uL Monocytes # (Manual) 1.3 H (0.1-1.2) X10*3/uL Metamyelocytes # 1.9 X10*3/uL Myelocytes # 1.9 X10*/uL Toxic Vacuolation PRESENT Dohle Bodies PRESENT Platelet Estimate NORMAL (NORMAL) Plt Morphology Comment NORMAL RBC Morphology NORMAL PT (11.1-13.3) SEC INR (0.9-1.1) APTT (26.0-36.4) SEC Sodium 144 (135-145) mmol/L Potassium 3.9 (3.3-5.1) mmol/L Chloride 105 (96-108) mmol/L Carbon Dioxide 29 (22-29) mmol/L Anion Gap 14 (12-20) BUN 39 H (9-16) mg/dL Creatinine 0.65 (0.5-1.4) mg/dL Estim Creat Clear Calc 58.1 Estimated GFR > 60 Random Glucose 111 (60-115) mg/dL Lactic Acid 1.9 (0.5-2.0) mmol/L Calcium 9.3 (8.4-10.2) mg/dL Total Bilirubin 0.3 (0.0-1.0) mg/dL AST 38 H (5-31) U/L ALT 43 H (0-31) U/L Alkaline Phosphatase 235 H (39-117) U/L Troponin I High Sens (<3.5-17.0) ng/L Total Protein 5.2 L (6.5-8.0) g/dL Albumin 2.6 L (3.5-5.0) g/dL 04/27/23 04/27/23 Range/Units 22:47 22:47 WBC (4.8-10.8) X10*3/uL RBC (4.20-5.50) X10*6/uL Hgb (12.0-16.0) g/dl Hct (37.0-47.0) % MCV (80.0-98.0) fL MCH (27.0-33.0) pg MCHC (31.0-35.0) g/dl RDW (11.0-16.0) % Plt Count (160-400) X10*3/uL MPV (9.4-12.3) fL Immature Gran % (Auto) Neut % (Auto) Lymph % (Auto) [place] % (Auto) Eos % (Auto) Baso % (Auto) Lymph # (Auto) [place] # (Auto) Eos # (Auto) Baso # (Auto) Abs Immat Gran (auto) Absolute Neuts (auto) Absolute Nucleated RBC (0.0-0.012) X10*3/uL Nucleated RBC % (auto) (0.0-0.2) /100WBC Neutrophils % (Manual) (45-73) % Band Neutrophils % (3-5) % Lymphocytes % (Manual) (20-40) % Monocytes % (Manual) (2-11) % Metamyelocytes % % Myelocytes % % Abs Neuts (Manual) (2.0-8.3) X10*3/uL Lymphocytes # (Manual) (1.2-4.9) X10*3/uL Monocytes # (Manual) (0.1-1.2) X10*3/uL Metamyelocytes # X10*3/uL Myelocytes # X10*/uL Toxic Vacuolation Dohle Bodies Platelet Estimate (NORMAL) Plt Morphology Comment RBC Morphology PT 11.3 (11.1-13.3) SEC INR 0.9 (0.9-1.1) APTT 22.9 L D (26.0-36.4) SEC Sodium (135-145) mmol/L Potassium (3.3-5.1) mmol/L Chloride (96-108) mmol/L Carbon Dioxide (22-29) mmol/L Anion Gap (12-20) BUN (9-16) mg/dL Creatinine (0.5-1.4) mg/dL Estim Creat Clear Calc Estimated GFR Random Glucose (60-115) mg/dL Lactic Acid (0.5-2.0) mmol/L Calcium (8.4-10.2) mg/dL Total Bilirubin (0.0-1.0) mg/dL AST (5-31) U/L ALT (0-31) U/L Alkaline Phosphatase (39-117) U/L Troponin I High Sens 44.7 H D (<3.5-17.0) ng/L Total Protein (6.5-8.0) g/dL Albumin (3.5-5.0) g/dL Independent Interpretation I performed an independent interpretation of an: EKG and CT Scan ( bilateral infiltrate with right pleural effusion) Interpretation: Normal sinus rhythm heart rate 90 beats per minute with PACs no acute ST change and no acute ischemic Radiology Impression Discussion of test interpretation with radiology: I have reviewed the radiologist's reading. Independent Historian Clinical information obtained from an independent historian. History obtained from or confirmed by: Other External Record Review External record reviewed: Inpatient record Critical Care Time Critical Care Time Critical Care Time: Yes Total Critical Care Time: 65 Attestation: The patient was critically ill with a high probability of imminent or life threatening deterioration. I spent greater than 70 minutes of discontinuous time evaluating the patient,delivering critical care at the bedside, discussing and evaluating pertinent data with consultants. Critical care time does not include time spent performing separately billable procedures or teaching. Total time spent performing critical care was 65 minutes. Discharge Plan Discharge Clinical Impression: Pneumonia Patient Disposition: Admitted As Inpatient
[2023-04-28] VITALS (10 sets, daily range): BP systolic 121–152; BP diastolic 47–65; PULSE 72–100; RESP 14–28; TEMP 36.3–37.4; O2SAT 88–99
[2023-04-28] MEDS: Piperacillin Sodium/Tazobactam 3.375 GM in 0.9 % Sodium Chloride 50 ML IV (01:18)
--- NOTE | 2023-04-28 01:22 | PC.NURSE ---
Port Flushed, medications administered as per MAR. Patient sleeping, even unlabored breathing. VSS. Plan of care ongoing.
[2023-04-28] MEDS: 0.9 % Sodium Chloride 1,000 ML 999 ML IV (03:26)
--- NOTE | 2023-04-28 03:55 | PC.NURSE ---
Patient alert and oriented, resting quietly. VSS, temp- 98.3 rectal, bp 128/51 (93), 82 pulse, 19rr. PT remains on awake overnight monitor, Medication administered per OCT. PT passed small amount of stool. Two stage two pressure wounds noted on right and left buttocks estimated 1 inch in diameter. cleaned wounds with wound cleanser, applied barrier cream to and allevyn foam dressing applied to both wounds. Patient denies pain at this time. Repositioned on right side. Plan of care on going
--- NOTE | 2023-04-28 04:26 | PM.IMHP ---
History of Present Illness Date of Service: 04/28/23 Chief Complaint: Abnormal vitals (low bp, high hr) Pt is an 82-year-old female with a PMH significant for?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 She was discharged to SNF when she was sent back because her vital showed low BP and high HR. Work up in ED revealed WBC of 62K, on April 22 it was 10K, has no fever or chils, no cough CT of chest showed Right bronchial stent with complete opacification of the inferior aspect of the stent. Large right perihilar infiltrate extending into the right upper, right lower and right middle lobes most consistent with pneumonia/post obstructive pneumonia. ? Left perihilar groundglass infiltrative change with minimal similar infiltrative change superior segment left lower lobe. An infectious process also suspected. ? She on Dexamethasone 2 mg daily and did receive Neulast during last hospitaliaztion but not sure if that account for this high WBC count. She is given Zosyn for post obstructive pneumonia. Review of Systems Review of Systems: Gen: no fever Resp: no sob, no cough CV: no chest, no LOTT, no leg edema GI: No n/v, no abd pain Neuro: No confusion COUNT INCLUDES THE [facility] Medical History Basal cell carcinoma Port-A-Cath in place (~02/03/23) Family History Sister Thyroid cancer Breast cancer Kidney stone Father Rectal cancer Surgical History History of tonsillectomy S/P pulmonary artery branches stent placement (~2022) [place] teeth extracted Social History Household Members: Children Housing: House Do you presently have visiting nurse or other home services: No Alcohol intake: former Patient Tobacco Use Status: Former Tobacco user Tobacco use type: Cigarette Smoked in Last 30 Days: No Use of substances other than those prescribed or required for medical reasons: No Advance Directives: No Advance Directives Information Provided: No service: No Current occupational status: retired Meds Allergies Allergy/AdvReac Type Severity Reaction Status Date / Time meperidine [From Demerol] Allergy Unknown Unknown Verified 02/16/23 13:10 Home Medications Medication Instructions Recorded Confirmed Last Taken Type albuterol sulfate 2.5 mg/3 mL 2.5 mg inhalation Q6H PRN wheezing 03/08/23 04/15/23 Unknown History (0.083 %) solution for nebulization folic acid 1 mg tablet 1 mg PO BEDTIME 03/08/23 04/15/23 04/14/23 History omeprazole 20 mg capsule,delayed 20 mg PO DAILY@0630 03/08/23 04/15/23 04/14/23 History release acetaminophen 325 mg tablet 650 mg PO Q6H PRN Pain 04/15/23 04/15/23 Unknown History (Tylenol) dextromethorphan-guaifenesin 10 10 ml PO Q4H PRN Congestion 04/15/23 04/15/23 Unknown History mg-200 mg/5 mL oral liquid furosemide 20 mg tablet (Lasix) 20 mg PO DAILY 04/15/23 04/15/23 04/14/23 History multivitamin 1 tab PO DAILY 04/15/23 04/15/23 04/14/23 History sodium chloride 3 % for 4 ml inhalation TID PRN sputum 04/15/23 04/15/23 Unknown History nebulization production Physical Exam Vital Signs and Narrative: Vital Signs: Last Vital Signs Temp 98.3 F 04/28/23 03:53 Pulse 82 04/28/23 03:53 Resp 19 04/28/23 03:53 BP 128/51 L 04/28/23 03:53 Pulse Ox 96 04/28/23 03:53 O2 Del Method Nasal Cannula 04/28/23 03:53 O2 Flow Rate 3 04/28/23 03:53 Oxygen Flow Rate 3 04/27/23 21:42 BMI result Body Mass Index 18.6 Const: Other: Constitutional: Alert, in no distress, emaciated Mental Status: Oriented to person, place and time. Eyes: Pupils are equal, round and reactive to light. Ear, Nose and Throat: Oropharynx clear, mucous membranes moist. Respiratory: Clear to auscultation. No wheezing, rales or rhonchi. Cardiovascular: S1 S2 regular. No murmurs, rubs or gallops. Gastrointestinal: Abdomen soft, non-tender, non-distended. Normal bowel sounds.? Neurologic: Cranial nerves II-XII grossly intact. No focal neurological deficits. Moves all extremities spontaneously.? Skin: No rashes or lesions.? Musculoskeletal: No cyanosis or clubbing. Psychiatric: Normal mood and affect? Results Labs 04/27/23 22:47 04/27/23 22:47 Labs: Laboratory Results - last 24 hr 04/27/23 04/27/23 04/27/23 22:47 22:47 22:47 MCV 97.7 MCH 32.5 MCHC 33.2 RDW 18.3 H Plt Count 220 D MPV 10.9 Immature Gran % (Auto) Cancelled Neut % (Auto) Cancelled Lymph % (Auto) Cancelled [place] % (Auto) Cancelled Eos % (Auto) Cancelled Baso % (Auto) Cancelled Lymph # (Auto) Cancelled [place] # (Auto) Cancelled Eos # (Auto) Cancelled Baso # (Auto) Cancelled Abs Immat Gran (auto) Cancelled Absolute Neuts (auto) Cancelled Absolute Nucleated RBC 0.140 H Nucleated RBC % (auto) 0.2 Neutrophils % (Manual) 85 H Band Neutrophils % 5 Lymphocytes % (Manual) 2 L Monocytes % (Manual) 2 Metamyelocytes % 3 Myelocytes % 3 Abs Neuts (Manual) 56.3 H Lymphocytes # (Manual) 1.3 Monocytes # (Manual) 1.3 H Metamyelocytes # 1.9 Myelocytes # 1.9 Toxic Vacuolation PRESENT Dohle Bodies PRESENT Platelet Estimate NORMAL Plt Morphology Comment NORMAL RBC Morphology NORMAL PT INR APTT Anion Gap 14 Estim Creat Clear Calc 58.1 Estimated GFR > 60 Random Glucose 111 Lactic Acid 1.9 Calcium 9.3 Total Bilirubin 0.3 AST 38 H ALT 43 H Alkaline Phosphatase 235 H Total Protein 5.2 L Albumin 2.6 L 04/27/23 22:47 MCV MCH MCHC RDW Plt Count MPV Immature Gran % (Auto) Neut % (Auto) Lymph % (Auto) [place] % (Auto) Eos % (Auto) Baso % (Auto) Lymph # (Auto) [place] # (Auto) Eos # (Auto) Baso # (Auto) Abs Immat Gran (auto) Absolute Neuts (auto) Absolute Nucleated RBC Nucleated RBC % (auto) Neutrophils % (Manual) Band Neutrophils % Lymphocytes % (Manual) Monocytes % (Manual) Metamyelocytes % Myelocytes % Abs Neuts (Manual) Lymphocytes # (Manual) Monocytes # (Manual) Metamyelocytes # Myelocytes # Toxic Vacuolation Dohle Bodies Platelet Estimate Plt Morphology Comment RBC Morphology PT 11.3 INR 0.9 APTT 22.9 L D Anion Gap Estim Creat Clear Calc Estimated GFR Random Glucose Lactic Acid Calcium Total Bilirubin AST ALT Alkaline Phosphatase Total Protein Albumin Imaging Radiologist's Impressions: Impressions Chest X-Ray 04/28/23 00:41 IMPRESSION: 1. Significant enlargement of the right hilum again seen. 2. Diffuse increased markings extending from the jon essentially unchanged compared to previous. 3. No new focal consolidation or pleural effusion. Chest CT 04/28/23 01:43 IMPRESSION: Emphysema. Stable right upper lobe/perihilar mass with likely associated upper lobe atelectasis. Right bronchial stent with complete opacification of the inferior aspect of the stent. Large right perihilar infiltrate extending into the right upper, right lower and right middle lobes most consistent with pneumonia/post obstructive pneumonia. Left perihilar groundglass infiltrative change with minimal similar infiltrative change superior segment left lower lobe. An infectious process also suspected. Progression of L1 compression fracture. Stable T7 compression fracture. Fleischner guidelines were followed. Assessment and Plan (1) Pleural effusion: Status: Acute (2) Obstructive pneumonia: Status: Acute Plan 82/F with PMH significant for?non-small cell lung cancer diagnosed december 2022, 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, COPD not on home O2, HTN, recent discharge for PNA, copd and resp failure and readmitted post obstive pneumonia with marked leukocytosis -Post obstructive pneumonia Continue Zosyn pulmonary consult to see if needs bronch Paroxysmal AFIB, rate controlled, no anticoagulation d/t brain mets redent ECHO w EF 60-65% w LVH Anemia of chronic disease--H/H stable [id number] lung cancer with 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, diagnosed 12/2022 Received radiation treatments at [facility], and has been on chemotherapy with Dr. Centeno, she is to determined further treatment Leukocytosis--likely from infection, steroid and neulasta HTN Continue metoprolol Chronic lower leg edema Continue home Lasix Full Code DVT Prophylaxis: Lovenox admission to for at least 2 midnight for treatment of pneumonia Time Spent With Patient Time: Total time managing care of this patient today ____ minutes. Quality Stroke Does the patient have a stroke diagnosis?: No VTE Prior VTE?: No VTE Risk Level:: Medical - moderate - high VTE Device Contraindication: Treatment Not Tolerated VTE Drug Contraindication: N/A - Med Ordered
[2023-04-28] MEDS: Enoxaparin Sodium 40 MG/0.4 ML SYRINGE SUBCUT (07:18)
[2023-04-28 07:20] LABS: Hematocrit 24.9 % (37.0-47.0); Hemoglobin 8.2 g/dl (12.0-16.0); Mean Corpuscular HGB Conc 32.9 g/dl (31.0-35.0); Mean Corpuscular Hemoglobin 32.3 pg (27.0-33.0); Mean Platelet Volume 10.4 fL (9.4-12.3); NRBC Pct Auto 0.2 /100WBC (0.0-0.2); Platelet Count 216 X10*3/uL (160-400); Red Blood Count 2.54 X10*6/uL (4.20-5.50); Red Cell Distribution Width 18.6 % (11.0-16.0)
[2023-04-28] MEDS: 0.9 % Sodium Chloride Flush 3 ML SYRINGE IVFLUSH ×2 (07:20→20:20)
--- NOTE | 2023-04-28 07:22 | PC.NURSE ---
patient resting in bed, shows no signs of distress. patient on 4l NC, port flushed and placed with curos cap. patient up eating breakfast, VSS
[2023-04-28 07:26] LABS: WBC ABN SCTR FOR CBC 1
[2023-04-28 07:27] LABS: White Blood Count 55.8 X10*3/uL (4.8-10.8)
[2023-04-28 07:38] LABS: Anion Gap 11 (12-20); Blood Urea Nitrogen 39 mg/dL (9-16); Calcium 8.9 mg/dL (8.4-10.2); Carbon Dioxide 31 mmol/L (22-29); Chloride 110 mmol/L (96-108); Creatinine Clr Calc Pharmacy 58.9; Estimated Glomerular Filt Rate > 60; Glucose Random 96 mg/dL (60-115); Potassium 3.5 mmol/L (3.3-5.1); Sodium 148 mmol/L (135-145)
[2023-04-28 08:05] LABS: Band Neutrophils Percent 6 % (3-5); Lymphocytes Absolute Manual 2.2 X10*3/uL (1.2-4.9); Lymphocytes Percent Manual 4 % (20-40); Metamyelocytes Absolute 0.6 X10*3/uL; Metamyelocytes Percent 1 %; Myelocytes Absolute 1.1 X10*/uL; Myelocytes Percent 2 %; Neutrophils Absolute Manual 51.9 X10*3/uL (2.0-8.3); Neutrophils Percent Manual 87 % (45-73); Nucleated Red Blood Cells 1 /100WBC (0-0)
[2023-04-28] MEDS: Piperacillin Sodium/Tazobactam 4.5 GM in 0.9 % Sodium Chloride 100 ML IV ×3 (08:12→20:17)
[2023-04-28 08:14] LABS: RBC Morphology NORMAL
[2023-04-28 08:15] LABS: Platelet Estimate NORMAL (NORMAL); Platelet Morphology Comment NORMAL
--- NOTE | 2023-04-28 08:19 | PHA.MEDREC ---
Pharmacy Consult ? Medication Reconciliation Pharmacy has completed the medication reconciliation. MED REC COMPLETE USING LIST FROM [facility]
--- NOTE | 2023-04-28 09:06 | MHC.EDTECH ---
Incontinence care completed at this time. New pad placed. Pt repositioned for comfort. Bed in low, locked position. Call steward in reach, able to make needs known.
--- NOTE | 2023-04-28 11:18 | MHC.CM.PN ---
Addendum entered by Kristen Bates 04/29/23 16:23: CM CALLED PTS DAUGHTER BACK TO OBTAIN MAILING ADDRESS FOR IMM DELIVERY: JEYSON FEMI [address] [place] [id number] Addendum entered by Kristen Bates 04/28/23 11:25: CORRECTIONS: PCP ON FILE IS INCORRECT. PCP: EDWINA FLORIAN PT ALSO ACTIVE WITH DR DAVILA FOR ONCOLOGY HCP AND MOLST ARE ON FILE Original Note: CM CALLED PTS DAUGHTER/HCP, JEYSON [phone] SHE CONFIRMS PT LIVES WITH HER SON, IN THE SAME HOME HOWEVER SHE HAS BEEN AT [facility] FOR STR AND THE HOPE IS THAT SHE WILL RETURN REFERRAL TO [facility] ALREADY MADE, THEY ARE FOLLOWING, PT IS NOT A BED HOLD JEYSON REPORTS THE PT WAS NOT USING ANY DME HOWEVER LIKELY NEEDS SOMETHING AT THIS POINT PT HAS A HCP AND PCP ON FILE IMM DELIVERED DCP: RETURN TO STR, PREFERABLY AT [facility] BLS TRANSPORT
[2023-04-28] MEDS: Acetaminophen 325 MG TABLET 650 MG PO ×2 (11:23→20:21)
--- NOTE | 2023-04-28 11:24 | PC.NURSE ---
was notified by tech that patient was having difficulty breathing, patient is on 4l nasal cannula initally was 93% when we came into the room, pt dipped down t0 88%, patient was a up, all lung pollock are clear. patient respiratory rate was 43 now 14. patient stated she was having back pain, unsure why she felt sob. utilized prn tylenol for pain per MAR. VSS
--- NOTE | 2023-04-28 14:07 | PM.EVENT ---
Event Note Date of Service: 04/28/23 Event Note: Seen and evaluated this morning Laying comfortable on 4L of O2 report feeling weak with no energy Continue IV Abx Pulm eval pending wean down O2 as tolerated Time Spent With Patient Time: Total time managing care of this patient today ____ minutes.
[2023-04-28] MEDS: Sucralfate 1 GM TABLET PO (16:07)
--- NOTE | 2023-04-28 16:15 | PC.NURSE ---
assumed care of pt at this time. axox4, respirations even and unlabored. pt medicated per mar able to swallow pill with applesauce. pt continues to deny lunch. nsr on monitor 89 bpm. skin wpd. call steward within reach.
--- NOTE | 2023-04-28 18:19 | PC.NURSE ---
report given to s3 nurse jose de jesus. awaiting transport.
[2023-04-28] MEDS: Folic Acid 1 MG TABLET PO (20:21)
[2023-04-28] MEDS: guaiFENesin LA 600 MG TAB.ER.12H 1200 MG PO (20:21)
[2023-04-29] MEDS: Piperacillin Sodium/Tazobactam 4.5 GM in 0.9 % Sodium Chloride 100 ML IV ×3 (02:28→15:14)
[2023-04-29] MEDS: Acetaminophen 325 MG TABLET 650 MG PO ×2 (02:31→08:38)
[2023-04-29] MEDS: vancomycin HCL 1,500 MG in 0.9 % Sodium Chloride 500 ML 250 MG IV (02:58)
[2023-04-29 03:21] VITALS: BP 151/68; PULSE 90; RESP 18; TEMP 36; O2SAT 96
[2023-04-29] MEDS: Omeprazole 20 MG CAPSULE.DR PO (06:05)
[2023-04-29 07:20] VITALS: BP 146/67; PULSE 95; RESP 18; TEMP 36.1; O2SAT 97
[2023-04-29] MEDS: Enoxaparin Sodium 40 MG/0.4 ML SYRINGE SUBCUT (08:37)
[2023-04-29] MEDS: Multivitamin TABLET 1 TAB PO (08:38)
[2023-04-29] MEDS: dilTIAZem HCL CD 240 MG CAP.ER.DEG PO (08:38)
[2023-04-29] MEDS: Sucralfate 1 GM TABLET PO ×2 (08:38→17:22)
[2023-04-29] MEDS: guaiFENesin LA 600 MG TAB.ER.12H 1200 MG PO (08:38)
[2023-04-29] MEDS: 0.9 % Sodium Chloride Flush 3 ML SYRINGE IVFLUSH ×2 (08:38→15:17)
[2023-04-29] MEDS: oxyCODONE HCl Immed Release 5 MG TABLET PO (08:51)
--- NOTE | 2023-04-29 09:28 | P.CONPL_ITS ---
History of Present Illness History of Present Illness Consult date: 04/29/23 Chief complaint: Post Obstructive Pneumonia Narrative: PULMONARY CONSULT : I have seen this patient this morning and reviewed the medical records, lab and imaging. 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 She had a stent placed in the right main bronchus to overcome the obstructive lesion. Patient has been started on chemotherapy by Dr. Centeno at [facility]. She has been treated with Neulasta which may be the cause for leukocytosis. She was admitted here from 04/15- and treated for pneumonia/acute exacerbation of COPD. She was sent to rehab facility, on O2 3 L/minutes. She continues to be weak tired and short of breath , WBC count has short up to 62 K but no fever or chills reported. Patient was sent back to the hospital because of hypotension and tachycardia with increasing shortness of breath. Prior to the last admission, this patient has history of COPD, but was not on home oxygen therapy. After treatment on 04/23 she was sent to rehab on oxygen , updraft treatments with albuterol, and continued on dexamethasone 2 mg daily. Review of Systems 2 Review of Systems: Yes Unobtainable due to mental status PMFSH Past Medical History Medical History Basal cell carcinoma Port-A-Cath in place (~02/03/23) Family History Family History Sister Thyroid cancer Breast cancer Kidney stone Father Rectal cancer Surgical History Surgical History History of tonsillectomy S/P pulmonary artery branches stent placement (~2022) [place] teeth extracted Social History Social History Household Members: Family Housing: House Do you presently have visiting nurse or other home services: No Alcohol intake: former Patient Tobacco Use Status: Former Tobacco user Tobacco use type: Cigarette service: No Current occupational status: retired Meds Allergies Allergy/AdvReac Type Severity Reaction Status Date / Time meperidine [From Demerol] Allergy Unknown Unknown Verified 02/16/23 13:10 Active Medications: Current Medications Acetaminophen (Acetaminophen 325 Mg Tablet) 650 mg PO Q6H PRN PRN Reason: Pain, Mild (Pain Scale 1-3) Last Admin: 04/29/23 08:38 Dose: 650 mg Al Hydroxide/Mg Hydroxide (Magnesium Hydrox/Alum Hydrox 30 Ml Oral.Susp) 30 ml PO Q4H PRN PRN Reason: Heartburn/Nausea Albuterol Sulfate (Albuterol Sulfate 90 Mcg 8 Gm Inhaler) 2 puff INHALE Q6H PRN PRN Reason: Shortness Of Breath Benzonatate (Benzonatate 100 Mg Capsule) 100 mg PO Q8H PRN PRN Reason: Cough Dexamethasone (Dexamethasone 0.5 Mg Tablet) 0.5 mg PO DAILY [facility] Last Admin: 04/29/23 08:38 Dose: 0.5 mg Diltiazem HCl (Diltiazem Hcl Cd 240 Mg Cap.Er.Deg) 240 mg PO DAILY [facility]; Protocol Last Admin: 04/29/23 08:38 Dose: 240 mg Docusate Sodium (Docusate Sodium 100 Mg Capsule) 100 mg PO DAILY PRN PRN Reason: Constipation Enoxaparin Sodium (Enoxaparin Sodium 40 Mg/0.4 Ml Syringe) 40 mg SUBCUT Q24H [facility] Last Admin: 04/29/23 08:37 Dose: 40 mg Folic Acid (Folic Acid 1 Mg Tablet) 1 mg PO BEDTIME [facility] Last Admin: 04/28/23 20:21 Dose: 1 mg Guaifenesin (Guaifenesin La 600 Mg Tab.Er.12h) 1,200 mg PO BID [facility] Last Admin: 04/29/23 08:38 Dose: 1,200 mg Piperacillin Sod/Tazobactam (Sod 4.5 gm/ Sodium Chloride) 100 mls @ 200 mls/hr IV Q6H [facility] Last Admin: 04/29/23 08:37 Dose: 200 mls/hr Melatonin (Melatonin 3 Mg Tablet) 3 mg PO BEDTIME PRN PRN Reason: Insomnia Multivitamins/Vitamin C (Multivitamin Tablet) 1 tab PO DAILY [facility] Last Admin: 04/29/23 08:38 Dose: 1 tab Omeprazole (Omeprazole 20 Mg Capsule.Dr) 20 mg PO DAILY@0630 [facility] Last Admin: 04/29/23 06:05 Dose: 20 mg Ondansetron HCl (Ondansetron Hcl 4 Mg/2 Ml Vial) 4 mg IVPUSH Q8H PRN PRN Reason: Nausea and Vomiting Oxycodone HCl (Oxycodone Hcl Immed Release 5 Mg Tablet) 5 mg PO Q6H PRN PRN Reason: Pain, Moderate(Pain Scale 4-6) Last Admin: 04/29/23 08:51 Dose: 5 mg Pharmacy Consult (Consult Rx Vancomycin Dosing) 1 each MISCELLANE DAILY PRN PRN Reason: Consult order Sodium Chloride (0.9 % Sodium Chloride Flush 3 Ml Syringe) 3 ml IVFLUSH [facility] Last Admin: 04/29/23 08:38 Dose: 3 ml Sodium Chloride (Sodium Chloride 3 % Inhalation 15 Ml Vial.[facility]) 4 ml INHALE TID PRN PRN Reason: sputum production Sucralfate (Sucralfate 1 Gm Tablet) [facility] Last Admin: 04/29/23 08:38 Dose: 1 gm Home Medications Medication Instructions Recorded Confirmed Last Taken Type folic acid 1 mg tablet 1 mg PO BEDTIME 03/08/23 04/28/23 04/14/23 History omeprazole 20 mg capsule,delayed 20 mg PO DAILY@0630 03/08/23 04/28/23 04/14/23 History release acetaminophen 325 mg tablet 650 mg PO Q6H PRN Fever Or Pain 04/15/23 04/28/23 Unknown History (Tylenol) multivitamin 1 tab PO DAILY 04/15/23 04/28/23 04/14/23 History sodium chloride 3 % for 4 ml inhalation TID PRN sputum 04/15/23 04/28/23 Unknown History nebulization production albuterol sulfate 90 mcg/actuation 2 puff inhalation Q6H PRN 04/28/23 04/28/23 Unknown History aerosol inhaler (Ventolin HFA) Shortness Of Breath benzonatate 100 mg capsule 100 mg PO Q8H PRN Cough 04/28/23 04/28/23 Unknown History guaifenesin 600 mg tablet, 1,200 mg PO BID 04/28/23 04/28/23 Unknown History extended release 12 hr (Mucinex) Physical Exam 2 Vital Signs: Vital Signs: Last Vital Signs Temp 97.0 F 04/29/23 07:20 Pulse 95 04/29/23 07:20 Resp 18 04/29/23 07:20 BP 146/67 H 04/29/23 07:20 Pulse Ox 97 04/29/23 07:20 O2 Del Method Nasal Cannula 04/29/23 07:20 O2 Flow Rate 3.0 04/29/23 07:20 Oxygen Flow Rate 3 04/27/23 21:42 BMI result Body Mass Index 18.6 Const: General: comfortable (But dyspneic), no acute distress, alert and awake Orientation/consciousness: patient oriented x3 HEENT: Head: Yes normal to inspection General nose exam: No nasal polyps present and No nasal discharge present Face and sinus: Yes sinuses nontender Mouth: oropharynx normal Throat: Yes posterior oropharynx normal Eyes: General: appearance normal, both eyes and all related structures Neck: Neck: Yes normal visual inspection, Yes no lymphadenopathy, Yes trachea midline and Yes no JVD Thyroid: Thyroid normal Chest: Chest palpation & inspection: normal inspection of the chest, normal palpation of entire chest wall and no tenderness Resp: Other: Percussion note is resonant. Breath sounds are distant on both sides. Right lung is only partially aerated, especially no breath sounds over the right upper lobe and diminished breath sounds over the right lower lobe with inspiratory crackles. Cardio: Palpation: normal PMI Rate: regular rate Rhythm: regular rhythm Heart sounds: no gallops and no murmurs GI: Palpation (GI): Soft to palpation, nontender, No hepatosplenomegaly present and no masses Auscultation: normal bowel sounds Back/Spine/Pelvis: Other: not examined Thoracic/Lumbar Spine: thoracic and lumbar spine normal to inspection Skin: General skin exam: no rashes or lesions noted Neuro: General: patient oriented x3 and no focal motor deficits (But has marked generalized weakness) Extrem: General: Yes normal to inspection, Yes no clubbing, cyanosis or edema and Yes no calf tenderness Psych: Speech and movement: Normal speech and movement present Results Laboratory Findings 04/28/23 07:15 04/28/23 07:15 ABG, PT/INR, D-dimer: PT/INR, D-dimer PT 11.3 SEC (11.1-13.3) 04/27/23 22:47 INR 0.9 (0.9-1.1) 04/27/23 22:47 Abnormal lab findings: Abnormal Labs 04/27/23 04/28/23 22:47 07:15 WBC 62.5 H* 55.8 H* RBC 2.65 L 2.54 L Hgb 8.6 L 8.2 L Hct 25.9 L 24.9 L RDW 18.3 H 18.6 H Absolute Nucleated RBC 0.140 H 0.110 H Neutrophils % (Manual) 85 H 87 H Band Neutrophils % 6 H Lymphocytes % (Manual) 2 L 4 L Abs Neuts (Manual) 56.3 H 51.9 H Monocytes # (Manual) 1.3 H Nucleated RBCs 1 H APTT 22.9 L D Sodium 148 H Chloride 110 H Carbon Dioxide 31 H Anion Gap 11 L BUN 39 H 39 H AST 38 H ALT 43 H Alkaline Phosphatase 235 H Troponin I High Sens 44.7 H D Total Protein 5.2 L Albumin 2.6 L Microbiology: Microbiology 04/27/23 22:47 Blood - Venous Blood Culture - Preliminary No growth after 24 hours. 04/27/23 22:47 Blood - Venous Blood Culture - Preliminary Prelim: GPC Gram Stain only Diagnostic Findings Chest x-ray: report reviewed and image reviewed CT scan - chest: report reviewed and image reviewed Assessment and Plan (1) Non-small cell lung cancer: Status: Acute (2) Acute exacerbation of chronic obstructive airways disease: Status: Acute (3) Obstructive pneumonia: Status: Acute (4) Leukocytosis: Status: Acute Plan This elderly lady who is quite frail, is a case of non-small cell carcinoma involving the right bronchus, with Metastatic lesions in the brain, Treated with stent placement in the right bronchus to overcome the obstruction, status post radiation, and recently started chemotherapy. Has significant postobstructive pneumonia right lower lobe, most likely radiation pneumonitis involving the right upper lobe. The bronchial stent is partially blocked , contributing to obstructive pneumonia. Leukocytosis is partly due to pneumonia and partly due to Neulasta , which was recently started. Increasing respiratory insufficiency, is due to combination of all the above factors. Recc . Treat with a course of broad-spectrum antibiotic, empirically. Continue dexamethasone 2 mg daily, DuoNeb updrafts Q 4-6 hours. While awake Oxygen supplementation to keep O2 sat above 92%. Patient needs to see the thoracic surgeon or interventional epic radiant analyst at [facility] who had put the bronchial stent in. This may need to be removed . At present she is not candidate for any active chemotherapy treatment. That you very much for asthma to see this patient . Time Spent With Patient Time: Total time managing care of this patient today ____ minutes. Procedures Date of Service Date of Service: 04/29/23
[2023-04-29 10:17] LABS: Hematocrit 26.5 % (37.0-47.0); Hemoglobin 8.7 g/dl (12.0-16.0); Mean Corpuscular HGB Conc 32.8 g/dl (31.0-35.0); Mean Corpuscular Hemoglobin 32.8 pg (27.0-33.0); Mean Platelet Volume 10.8 fL (9.4-12.3); NRBC Pct Auto 0.1 /100WBC (0.0-0.2); Platelet Count 296 X10*3/uL (160-400); Red Blood Count 2.65 X10*6/uL (4.20-5.50); Red Cell Distribution Width 18.8 % (11.0-16.0)
--- NOTE | 2023-04-29 10:19 | P.CDIM_ITS ---
PROVIDER RESPONSE TEXT: To clarify, the appropriate diagnosis supported by the clinical indicators: Hypernatremia QUERY TEXT: PHYSICIAN'S DOCUMENTATION REQUEST Date of Query: 04/29/2023 08:11 AM EDT Patient Name: Michelle Estrada Admit Date: 04/28/2023 Dear Allen Hall, A review of the medical record indicates additional documentation may be needed. Please review below and update the documentation accordingly. Clinical Indicators: LAB FINDINGS: sodium 148 H Based on the above, is there a diagnosis that correlates with these lab findings: Hypernatremia Other please specify Other (explain)Clinically unable to determine (explain)Thank you, Sanam Garsia, CCS, CDIS Use of terms such as suspected, likely, concern for, or probable (associated with a specific diagnosi s that is being evaluated, monitored, or treated as if it exists) are acceptable and can be coded in the inpatient se tting, when documented at the time of discharge. Please use your independent medical judgment in providing your response. THIS QUERY IS PART OF THE PERMANENT MEDICAL RECORD
--- NOTE | 2023-04-29 10:19 | P.CDIM_ITS ---
PROVIDER RESPONSE TEXT: To clarify, the appropriate diagnosis supported by the clinical indicators: Pressure (decubitus) ulcer/injury Stage II bilateral buttocks QUERY TEXT: PHYSICIAN'S DOCUMENTATION REQUEST Date of Query: 04/29/2023 08:14 AM EDT Patient Name: Michelle Estrada Admit Date: 04/28/2023 Dear Allen Hall, A review of the medical record indicates additional documentation may be needed. Please review below and update the documentation accordingly. Clinical Indicators: Wound assessment notes 04/28 - Pressure injury Stage II bilateral buttocks Dry & Intact Foam dressing Based on the above, could you please provide further information regarding the ulcer/wound: Pressure (decubitus) ulcer/injury Stage II bilateral buttocks Other please specify Other (explain)Clinically unable to determine (explain)Thank you, Sanam Garsia, CCS, CDIS Use of terms such as suspected, likely, concern for, or probable (associated with a specific diagnosi s that is being evaluated, monitored, or treated as if it exists) are acceptable and can be coded in the inpatient se tting, when documented at the time of discharge. Please use your independent medical judgment in providing your response. THIS QUERY IS PART OF THE PERMANENT MEDICAL RECORD
[2023-04-29 10:31] VITALS: BP 146/67; PULSE 95; O2SAT 97
[2023-04-29 11:02] LABS: Alanine Aminotransferase 59 U/L (0-31); Albumin Level 2.5 g/dL (3.5-5.0); Alkaline Phosphatase 230 U/L (39-117); Anion Gap 11 (12-20); Aspartate Amino Transferase 46 U/L (5-31); Bilirubin Direct 0.3 mg/dL (0.0-0.5); Bilirubin Total 0.7 mg/dL (0.0-1.0); Blood Urea Nitrogen 33 mg/dL (9-16); Calcium 9.1 mg/dL (8.4-10.2); Carbon Dioxide 26 mmol/L (22-29); Chloride 114 mmol/L (96-108); Creatinine Clr Calc Pharmacy 67.4; Estimated Glomerular Filt Rate > 60; Glucose Random 99 mg/dL (60-115); Potassium 3.1 mmol/L (3.3-5.1); Sodium 148 mmol/L (135-145)
--- NOTE | 2023-04-29 12:00 | HE.PHANOTE ---
RE: BLAZE continuing patient on 1250 mg Q24H, chose Q24H dosing as patient is older than 65 years old, this should allow patient time to clear. also pushed back dosing by a few hours so that level can come back while pharmacy staff is here to interpret level.
[2023-04-29 14:28] VITALS: BMI 18.6
--- NOTE | 2023-04-29 14:57 | P.DS_ITS ---
DS: Providers Provider Date of Service: 05/01/23 Date of admission: 04/28/23 04:46 Primary care physician: Earl Lara MD Consults: 04/28/23 04:48 Consult to Pulmonology Routine Consulting Provider: [facility] Reason for consultation: post obstructive pneumonia DS: Diagnosis Discharge Diagnosis (1) Non-small cell lung cancer: Status: Acute (2) Acute exacerbation of chronic obstructive airways disease: Status: Acute (3) Obstructive pneumonia: Status: Acute (4) Leukocytosis: Status: Acute (5) Positive blood culture: Status: Acute DS: Summary Hospital Course Hospital Course: Admission note HPI Pt is an 82-year-old female with a PMH significant for?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 She was discharged to SNF when she was sent back because her vital showed low BP and high HR. Work up in ED revealed WBC of 62K, on April 22 it was 10K, has no fever or chils, no cough. CT of chest showed Right bronchial stent with complete opacification of the inferior aspect of the stent. Large right perihilar infiltrate extending intothe right upper, right lower and right middle lobes most consistent with pneumonia/post obstructive pneumonia. Left perihilar groundglass infiltrative change with minimal similar infiltrative change superior segment left lower lobe. An infectious process also suspected. ?She on Dexamethasone 2 mg daily and did receive Neulast during last hospitaliaztion but not sure if that account for this high WBC count. She is given Zosyn for post obstructive pneumonia. Hospital course Admitted for post obstructive pneumonia as she was started on Zosyn with history of swallowing problems. O2 was 88% on RA on admission, now 96% on 2L. GPC in blood : 1 set of cultures from 04/27. Started on Vancomycin pending final cultures. repeat cultures sent on 04/29 morning. Hx of PAF , diagnosed 03/2023. Not on anticoagulation for brain mets w risk of bleed. [id number] lung cancer with 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, diagnosed 12/2022. Received radiation treatments at [facility], and has been on chemotherapy with Dr. Centeno (on hold since last admission) she is to determined further treatment down the road. Noticed to have significantly elevated WBCs of 60,000. likely related to being on Dexamethasone (started weaning down from 2 mg to 0.5 mg today), Neulasta and the fact of infection. To be transferred to [facility] for further evaluation and treatment as she will have Bronchoscopy for Stent replacement\advancement with dr Flower. Time Spent with Patient Time attestation: Total time managing care of this patient today ____ minutes. Discharge coordination time: Greater than 30 minutes Quality: Safe Use of Opioids Does Pt have an Active Cancer Diagnosis on the Problem List?: No Quality: Stroke Does the patient have a stroke diagnosis?: No Physical Exam Vital Signs: Vital Signs: Last Vital Signs Temp 97.0 F 04/29/23 07:20 Pulse 95 04/29/23 10:31 Resp 18 04/29/23 07:20 BP 146/67 H 04/29/23 10:31 Pulse Ox 97 04/29/23 10:31 O2 Del Method Nasal Cannula 04/29/23 07:20 O2 Flow Rate 3.0 04/29/23 07:20 Oxygen Flow Rate 3 04/27/23 21:42 BMI result Body Mass Index 18.6 Const: Other: Constitutional : Awake, interactive Neck : Normal inspection, Supple Cardiovascular : RRR, no JVP, no lower extremity edema Respiratory : decreased bilateral air entry, basal bilateral crackles, scattered expiratory wheezes, on O2 supplement Gastrointestinal: soft, lax, Normal bowel sounds, Non tender Skin : Warm, Dry Neurological : Alert & oriented x3, No focal deficit DS: Data Data Completed and Pending Labs on day of discharge: Laboratory Results - last 24 hr 04/29/23 09:52 WBC 58.0 H* RBC 2.65 L Hgb 8.7 L Hct 26.5 L MCV 100.0 H MCH 32.8 MCHC 32.8 RDW 18.8 H Plt Count 296 D MPV 10.8 Absolute Nucleated RBC 0.060 H Nucleated RBC % (auto) 0.1 Sodium 148 H Potassium 3.1 L Chloride 114 H Carbon Dioxide 26 Anion Gap 11 L BUN 33 H Creatinine 0.56 Estim Creat Clear Calc 67.4 Estimated GFR > 60 Random Glucose 99 Calcium 9.1 Total Bilirubin 0.7 Direct Bilirubin 0.3 AST 46 H ALT 59 H Alkaline Phosphatase 230 H Total Protein 5.0 L Albumin 2.5 L Preliminary micro results at discharge 04/27/23 22:47 Blood Culture - Preliminary Blood - Venous Prelim: GPC Gram Stain only 04/27/23 22:47 Blood Culture - Preliminary Blood - Venous No growth after [address] scan - chest: Radiologist's impression: ITS Impressions Chest X-Ray 04/28/23 00:41 IMPRESSION: 1. Significant enlargement of the right hilum again seen. 2. Diffuse increased markings extending from the jon essentially unchanged compared to previous. 3. No new focal consolidation or pleural effusion. Chest CT 04/28/23 01:43 IMPRESSION: Emphysema. Stable right upper lobe/perihilar mass with likely associated upper lobe atelectasis. Right bronchial stent with complete opacification of the inferior aspect of the stent. Large right perihilar infiltrate extending into the right upper, right lower and right middle lobes most consistent with pneumonia/post obstructive pneumonia. Left perihilar groundglass infiltrative change with minimal similar infiltrative change superior segment left lower lobe. An infectious process also suspected. Progression of L1 compression fracture. Stable T7 compression fracture. Fleischner guidelines were followed. Discharge Plan Discharge Anticipated Discharge Date/Time: 04/29/23 16:53 Patient Disposition: Xfer Acute Care Hospital Discharge Diagnosis: Post obstructive pneumonia GPC in blood : 1 set of cultures Referrals: [facility] [Other] - 1 Week ([id number]) Earl Lara MD [Primary Care Provider] - 1 Week Discharge Medications: New dexamethasone 0.5 mg Tablet 0.5 mg PO DAILY Qty: 1 0RF Continued omeprazole 20 mg capsule,delayed release(DR/EC) 20 mg PO DAILY@0630 folic acid 1 mg tablet 1 mg PO BEDTIME oxycodone 5 mg Tablet 5 mg PO Q8H PRN (Reason: Pain) Qty: 30 0RF Rx Instructions: Partial Fill upon patient request. sodium chloride 3 % solution for nebulization 4 ml inhalation TID PRN (Reason: sputum production) multivitamin Tablet 1 tab PO DAILY acetaminophen [Tylenol] 325 mg Tablet 650 mg PO Q6H PRN (Reason: Fever Or Pain) diltiazem HCl 240 mg Capsule,Extended Release 24hr 240 mg PO DAILY Qty: 0 0RF Protocol: Hold for SBP/HR < HOLD for SBP < : 90 HOLD for HR < : 60 sucralfate 1 gram Tablet 1 g PO QIDACHS Qty: 0 0RF benzonatate 100 mg Capsule 100 mg PO Q8H PRN (Reason: Cough) albuterol sulfate [Ventolin HFA] 90 mcg/actuation Hfa Aerosol Inhaler 2 puff INHALATION Q6H PRN (Reason: Shortness Of Breath) guaifenesin [Mucinex] 600 mg Tablet Extended Release 12hr 1,200 mg PO BID Discontinued dexamethasone 2 mg Tablet 2 mg PO DAILY Qty: 30 0RF Rx Instructions: START 04/16/23 cefuroxime axetil 500 mg Tablet 500 mg PO Q12H Qty: 0 0RF Rx Instructions: 5 DAYS TREATMENT FROM 04/24/23 THROUGH 04/28/23 azithromycin 500 mg Tablet 500 mg PO Q24H Qty: 0 0RF Rx Instructions: 5 DAYS TREATMENT FROM 04/24/23 THROUGH 04/28/23 Discharge Orders: Discharge Order (Routine); Ordered 04/29/23 Ordered By: Allen Hall Diet: Advance to usual diet Activity on Discharge: As tolerated Stand Alone Forms: Patient Portal Discharge page Care Plan Goals: . Health Concerns: . Plan of Treatment: . Assessment: Transfer to [facility] for thoracic surgery procedure and continue treatment of the infection. Discharge Date/Time: 04/29/23 17:45
[2023-04-29 15:35] LABS: IDNOW Serial# 08D9AD1C
[2023-04-29 15:36] LABS: COVID-19 Test Negative (Negative)
[2023-04-29 15:39] VITALS: BP 139/55; PULSE 138; RESP 24; TEMP 35.8; O2SAT 98
== END 2023-04-29 17:45 | disposition short-term general hospital (02) | DRG 190 ==
LOC: HO.ED 04-28 02:08 → HO.EDOVER 04-28 05:05 → HO.S3 04-28 18:02
PROVIDERS: Admitting Provider Internal Medicine; Emergency Provider Internal Medicine; PCP Family Medicine Geriatric Medicine; Visit Provider Student in an Organized Health Care Education/Training Program
DX: J44.0 Chronic obstructive pulmonary disease with (acute) lower respiratory infection (principal); J18.9 Pneumonia, unspecified organism; C34.91 Malignant neoplasm of unspecified part of right bronchus or lung; J91.8 Pleural effusion in other conditions classified elsewhere; C79.31 Secondary malignant neoplasm of brain; E87.0 Hyperosmolality and hypernatremia; R78.81 Bacteremia; C79.00 Secondary malignant neoplasm of unspecified kidney and renal pelvis; J44.1 Chronic obstructive pulmonary disease with (acute) exacerbation; L89.322 Pressure ulcer of left buttock, stage 2; L89.312 Pressure ulcer of right buttock, stage 2; I10 Essential (primary) hypertension; I48.0 Paroxysmal atrial fibrillation; Z20.822 Contact with and (suspected) exposure to COVID-19; Z87.891 Personal history of nicotine dependence; Z79.899 Other long term (current) drug therapy
CPT/HCPCS: 36415; 71045; 71250; 80048; 80053; 80076; 83605; 84484; 85007; 85025; 85027; 85610; 85730; 87040; 87147; 87205; 87635; 93005; 97162; 99285; J1650; J2543; J3371; J8540

== ENCOUNTER → 2023-04-28 04:46 | Outpatient (BNV) | payer MEDICARE, SELFPAY | PROVIDERS: Admitting Provider Internal Medicine; Emergency Provider Internal Medicine; PCP Family Medicine Geriatric Medicine; Visit Provider Student in an Organized Health Care Education/Training Program | DX: J90 Pleural effusion, not elsewhere classified (principal); J18.9 Pneumonia, unspecified organism | CPT/HCPCS: 99223; 99239; 99499 ==

== ENCOUNTER → 2023-04-28 04:46 | Outpatient (BNV) | payer MEDICARE, SELFPAY | PROVIDERS: Admitting Provider Internal Medicine; Emergency Provider Internal Medicine; PCP Family Medicine Geriatric Medicine; Visit Provider Internal Medicine | DX: C34.90 Malignant neoplasm of unspecified part of unspecified bronchus or lung (principal); J44.1 Chronic obstructive pulmonary disease with (acute) exacerbation; J18.9 Pneumonia, unspecified organism; D72.829 Elevated white blood cell count, unspecified | CPT/HCPCS: 99223 ==